=== PATIENT | female | born 1990 | race Caucasian/White ===

== ENCOUNTER 2019-12-24 11:26 | Emergency (ER) | payer OTHER, SELFPAY ==
[2019-12-24 11:35] VITALS: BP 149/94; PULSE 87; RESP 16; TEMP 37.3; O2SAT 100
--- NOTE | 2019-12-24 11:57 | ED.URI ---
HPI - URI/Sore Throat General Chief Complaint: Upper Respiratory Infection Stated Complaint: Sore Throat Source: patient Mode of arrival: ambulatory Limitations: no limitations History of Present Illness HPI Narrative: Patient is a 29-year-old female who presents complaining of sore throat and headache starting this a.m. Patient reports she was sent by her employer. Patient denies fever, cough, congestion or other symptoms at this time. She denies taking [id number] medications for symptom relief at this time. MD elicited complaint: sore throat Related Data Allergies Allergy/AdvReac Type Severity Reaction Status Date / Time amoxicillin Allergy Intermediate Hives Verified 12/24/19 11:43 Penicillins Allergy Intermediate Hives Verified 12/24/19 11:43 Review of Systems Review of Systems: Narrative: CONSTITUTIONAL: Denies fever, chills, or sweats. EYES: Denies visual changes, redness, or discharge. ENT: Denies rhinorrhea, congestion, or otalgia. Reports sore throat CARDIOVASCULAR: Denies chest pain, palpitations, or edema. RESPIRATORY: Denies cough or dyspnea. GASTROINTESTINAL: Denies abdominal pain, nausea, vomiting, or diarrhea. GENITOURINARY: Denies dysuria or hematuria. SKIN: Denies rash or itching. MUSCULOSKELETAL: Denies back pain, joint pain, or myalgia. NEUROLOGIC: Denies headache, numbness, dizziness, or weakness. PSYCHIATRIC: Denies anxiety or depression. PMFSH Past Medical History Medical History (Updated 12/24/19 @ 12:02 by RAGHAVENDRA White) Ovarian cyst Rheumatoid arthritis Ulcer Surgical History Surgical History (Updated 12/24/19 @ 12:00 by RAGHAVENDRA White) H/O: History of appendectomy Hx of tonsillectomy Family History Family History Other Diabetes mellitus Family history of malignant neoplasm of breast in first degree relative Social History Social History (Updated 12/24/19 @ 12:01 by RAGHAVENDRA White) Smoking status: Current every day smoker Tobacco type: e-cigarettes Alcohol intake: current Alcohol use details: Socially Substance use: never Living arrangements: with family Exam Narrative: Exam Narrative: GENERAL: Well-appearing, well-nourished, and in no acute distress. HEAD: Normocephalic, atraumatic. EYES: EOMI. No redness or drainage. Conjunctiva are normal. ENT: Mucous membranes pink and moist. Nares clear. No rhinorrhea. TMs normal bilaterally. Pharyngeal erythema and edema l. Uvula midline. NECK: AROM. Supple. No lymphadenopathy. CHEST: No respiratory distress. Clear to auscultation. HEART: Regular rate and rhythm. No murmur appreciated. Normal peripheral pulses. SKIN: Warm, dry, no rash. NEURO: No focal deficits. Alert and oriented x3. Gait steady. PSYCH: Normal affect. No signs of depression or anxiety. Course Vital Signs Vital signs: Vital Signs Temperature 37.3 C 12/24/19 11:35 Pulse Rate 87 12/24/19 11:35 Respiratory Rate 16 12/24/19 11:35 Blood Pressure 149/94 H 12/24/19 11:35 Pulse Oximetry 100 12/24/19 11:35 Temperature 37.3 C 12/24/19 11:35 Pulse Rate 87 12/24/19 11:35 Respiratory Rate 16 12/24/19 11:35 Blood Pressure 149/94 H 12/24/19 11:35 Pulse Oximetry 100 12/24/19 11:35 MDM - URI/Sore Throat MDM Narrative Medical decision making narrative: Patient's most likely diagnosis is pharyngitis. Rapid strep negative. Patient is stable for discharge to home with outpatient follow-up as needed. Differential Diagnosis Differential diagnosis: Likely upper respiratory infection, influenza and pharyngitis Medical Records Attestation: I reviewed the patient's medical records. Lab Data Labs: Strep Screen Presumptive Negative *(Reference Range: Negative)* Critical Care Time Critical Care Time Critical Care Time: No Discharge Plan Discharge Clinical Impression: Pharyngitis Guerrero
== END 2019-12-24 12:09 | disposition home or self-care (01) ==
PROVIDERS: Emergency Provider Nurse Practitioner; PCP Family Medicine Adolescent Medicine
DX: J02.9 Acute pharyngitis, unspecified (principal); F17.200 Nicotine dependence, unspecified, uncomplicated; M06.9 Rheumatoid arthritis, unspecified
CPT/HCPCS: 87081; 87880; 99213; G0463

== ENCOUNTER 2020-04-24 12:25 | Outpatient (CLI) | payer OTHER, SELFPAY ==
--- NOTE | ~2020-04-24 | XR_ITS ---
EXAMINATION: XR foot LT standing 2V INDICATION: Juvenile rheumatoid arthritis, seronegative TECHNIQUE: Two views of the left foot are obtained. COMPARISON: None available FINDINGS: There is no fracture, dislocation, or subluxation. 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 The fifth distal interphalangeal joint effusion. The soft tissues are un remarkable. No abnormal erosion or sclerosis is identified. IMPRESSION: 1. Unremarkable left foot radiographs. Reviewed, dictated and finalized at location A.
--- NOTE | ~2020-04-24 | XR_ITS ---
EXAMINATION: XR foot RT standing 2V INDICATION: Juvenile rheumatoid polyarthritis, seronegative TECHNIQUE: Two views of the right foot are obtained. COMPARISON: 03/17/2008 FINDINGS: There is no fracture, dislocation, or subluxation. 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 The joint spaces are otherwise normal. The soft tissues are unremarkable . No abnormal erosion or sclerosis is identified. IMPRESSION: 1. Unremarkable right foot radiographs. Reviewed, dictated and finalized at location A.
--- NOTE | ~2020-04-24 | XR_ITS ---
EXAMINATION: XR hip BI 2V w AP pelvis DATE: 04/24/2020 13:00 INDICATION: Juvenile rheumatoid polyarthritis, seronegative TECHNIQUE: AP view of the pelvis and two views of each hip were obtained. COMPARISON: None. FINDINGS: The bone alignment is normal. There is no fracture. The joint spaces are preserved. The sof t tissues are unremarkable. IMPRESSION: 1. Normal hip radiographs. Reviewed, dictated and finalized at location A. IMPRESSION: 1. Normal hip radiographs.
--- NOTE | ~2020-04-24 | XR_ITS ---
EXAMINATION: XR hand BI arthritis min 3V DATE: 04/24/2020 13:00 INDICATION: Bilateral hand pain, unspecified osteoarthritis, unspecified site TECHNIQUE: Posteroanterior, lateral, and oblique views of the left and of the right hands as well as a ballcatchers view of both hands were obtained. COMPARISON: None. FINDINGS: There is no fracture, dislocation, or subluxation. The bones, soft tissues, and joint space s are normal. No abnormal erosions or subluxations are identified. IMPRESSION: 1. Unremarkable hand radiographs. Reviewed, dictated and finalized at location A.
[2020-04-24 13:51] LABS: Hematocrit 40.2 % (37.0-47.0); Hemoglobin 13.4 g/dL (12.0-15.0); Mean Corpuscular HGB Conc 33.3 g/dl (32-36); Mean Corpuscular Hemoglobin 28.6 pg (26-34); Mean Corpuscular Volume 85.7 fl (80-100); Mean Platelet Volume 11.2 fl (7.4-10.4); Platelet Count Result 269 k/mm3 (150-375); Red Blood Count 4.69 M/mm3 (4.2-5.4); Red Cell Distribution Width 11.8 % (11.5-14.5); White Blood Count 11.7 K/mm3 (4.5-10.0)
[2020-04-24 13:52] LABS: Add Urine Microscopic? NO; Appearance Urine Clear (Clear); Bilirubin Urine Negative (Negative); Blood Urine Negative (Negative); Color Urine Straw (Yellow); Glucose Urine UA Negative (Negative); Ketones Urine Negative (Negative); Leukocyte Esterase Ur Negative LEU/UL (Negative); Nitrate Urine Negative (Negative); Protein Urine Negative (Negative); Specific Grav Ur 1.021 (1.001-1.035); Urobilinogen Urine Negative mg/dL (<2.0)
[2020-04-24 14:00] LABS: CRP 0.8 mg/dL (<1.0)
[2020-04-24 14:05] LABS: Complement C3 157 mg/dL (88-165); Rheumatoid Factor < 8.6 IU/ML (<12)
[2020-04-24 14:41] LABS: Erythrocyte Sedimentation Rate 19 mm/hr (0-20)
[2020-04-27 09:57] LABS: Chromatin Antibody <1.0
[2020-04-28 02:28] LABS: Anti Cardio Antibody IgM <12 MPL (<=12); Anti Cardiolipin Antibody IgA <11 APL (<=11); Anti Cardiolipin Antibody IgG <14 GPL (<=14)
[2020-04-28 14:18] LABS: Anti Cyclic Citrullinated Pept <16 Units (<20)
== END 2020-04-24 12:26 | disposition home or self-care (01) ==
PROVIDERS: PCP Family Medicine Adolescent Medicine; Visit Provider Internal Medicine
DX: M08.3 Juvenile rheumatoid polyarthritis (seronegative) (principal); M19.90 Unspecified osteoarthritis, unspecified site
CPT/HCPCS: 36415; 73130; 73521; 73620; 81003; 85027; 85652; 86140; 86147; 86160; 86200; 86235; 86430

== ENCOUNTER 2020-05-06 09:50 | Emergency (ER) | payer OTHER, SELFPAY ==
[2020-05-06 09:59] VITALS: BP 115/84; PULSE 85; RESP 16; TEMP 37.8; O2SAT 99
--- NOTE | 2020-05-06 10:06 | ED.ALLEREA ---
HPI - Allergic Reaction General Chief complaint: Allergic Reaction Stated complaint: Allergic reaction Time Seen by Provider: 05/06/20 10:06 Source: patient and RN notes reviewed Mode of arrival: ambulatory Limitations: no limitations History of Present Illness HPI narrative: This is a 29 years old female presents to the office for an evaluation of possible allergic reaction to new medication. She just started Hydroxychloroquine on 04/23 for newly dx Lupus. She noticed hives two days ago. Rash is every itchy. She calls her specialist whom told her to stop the medication and comes to [facility]. She took benadryl last night. Denies difficulty breathing, shortness of breath, swallowing, or feeling ill. Related Data Allergies Allergy/AdvReac Type Severity Reaction Status Date / Time amoxicillin Allergy Intermediate Hives Verified 04/23/20 13:04 Penicillins Allergy Intermediate Hives Verified 04/23/20 13:04 hydroxychloroquine Allergy Rash Verified 05/06/20 10:07 Review of Systems Review of Systems: Narrative: CONSTITUTIONAL: Denies fever or feeling ill ENT: Denies swollen tongue/lips CARDIOVASCULAR: Denies chest pain RESPIRATORY: Denies dyspnea GASTROINTESTINAL: Denies abdominal pain, nausea, vomiting SKIN: Reports hives MUSCULOSKELETAL: Denies acute joints pain NEUROLOGIC: Denies lightheaded All other systems reviewed are negative, except as documented in HPI. 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 There is no relevant family history pertinent to the presenting complaint. Exam Narrative: Exam Narrative: GENERAL: This is a well-nourished, well-developed patient, in no apparent distress. THROAT: Mucous membranes moist, posterior pharynx clear. NECK: Neck supple, non-tender without lymphadenopathy, masses or thyromegaly. CARDIOVASCULAR: Regular rate and rhythm without murmurs, gallops, or rubs. RESPIRATORY: Clear to auscultation. Breath sounds equal bilaterally. No wheezes, rales, or rhonchi. GASTROINTESTINAL: Abdomen soft, non-tender, nondistended. Bowel sounds are active. No hepato-splenomegaly, or palpable masses. No guarding. SKIN: reports generalize hives throughout torso, extremities except face NEURO: awake, alert, and oriented to person, place and time. There were no obvious focal neurologic abnormalities. Steady gait Reza Coma Scale Eye Opening: Spontaneous 4 [place] Coma Scale Motor: Obeys Commands 6 Reza Coma Scale Verbal: Oriented 5 Course Vital Signs Vital signs: Vital Signs Temperature 100.0 F H 05/06/20 09:59 Pulse Rate 85 05/06/20 09:59 Respiratory Rate 16 05/06/20 09:59 Blood Pressure 115/84 05/06/20 09:59 Pulse Oximetry 99 05/06/20 09:59 Temperature 100.0 F H 05/06/20 09:59 Pulse Rate 85 05/06/20 09:59 Respiratory Rate 16 05/06/20 09:59 Blood Pressure 115/84 05/06/20 09:59 Pulse Oximetry 99 05/06/20 09:59 MDM - Allergic Reaction MDM Narrative Medical decision making narrative: Discharge instructions reviewed with patient, as well as provided in writing per nursing staff. The instructions also include specific and strict
== END 2020-05-06 10:22 | disposition home or self-care (01) ==
PROVIDERS: Emergency Provider Nurse Practitioner; PCP Family Medicine Adolescent Medicine
DX: L50.9 Urticaria, unspecified (principal); F17.200 Nicotine dependence, unspecified, uncomplicated; M06.9 Rheumatoid arthritis, unspecified; M32.9 Systemic lupus erythematosus, unspecified
CPT/HCPCS: 99213; G0463

== ENCOUNTER 2020-06-06 08:11 | Emergency (ER) | payer OTHER, SELFPAY ==
[2020-06-06 08:23] VITALS: BP 129/86; PULSE 91; RESP 18; TEMP 37.2; O2SAT 100
--- NOTE | 2020-06-06 08:23 | ED.EAR ---
HPI - Ear Problem General Chief complaint: Ear Stated complaint: possible ear infection (left) Time Seen by Provider: 06/06/20 08:24 Source: patient and RN notes reviewed Mode of arrival: ambulatory Limitations: no limitations History of Present Illness HPI Narrative: This is a 30 years old female presented office for evaluation of left ear pain for 3-day. Associated with painful to touch and decreased hearing with ringing at times. She admits to swimming recently at her gym. She tried peroxide which make it worse. Denies associated symptoms such as fever, sore throat, cough, or any other symptoms. Related Data Allergies Allergy/AdvReac Type Severity Reaction Status Date / Time amoxicillin Allergy Intermediate Hives Verified 05/23/20 08:35 Penicillins Allergy Intermediate Hives Verified 05/23/20 08:35 hydroxychloroquine Allergy Rash Verified 05/23/20 08:35 Review of Systems Review of Systems: Narrative: CONSTITUTIONAL: Denies fever, chills ENT: Denies rhinorrhea, congestion, sore throat. reports left otalgia. CARDIOVASCULAR: Denies chest pain, palpitation RESPIRATORY: Denies dyspnea, wheezing, cough GASTROINTESTINAL: Denies abdominal pain, nausea, vomiting, diarrhea. SKIN: Denies rash MUSCULOSKELETAL: Denies acute back pain NEUROLOGIC: Denies lightheaded All other systems reviewed are negative, except as documented in HPI. 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 There is no relevant family history pertinent to the presenting complaint. Exam Narrative: Exam Narrative: GENERAL: This is a well-nourished, well-developed patient, in no apparent distress. EARS: External ears normal, right auditory canal clears and without drainage, left canal appears edematous with discharge noted; both TMs normal without perforation. Hearing grossly intact. NOSE: External nose normal with no obvious nasal discharge, nares without redness, no rhinorrhea. THROAT: Mucous membranes moist, posterior pharynx clear. NECK: Neck supple, non-tender without lymphadenopathy, masses or thyromegaly. CARDIOVASCULAR: Regular rate and rhythm without murmurs, gallops, or rubs. RESPIRATORY: Clear to auscultation. Breath sounds equal bilaterally. No wheezes, rales, or rhonchi. GASTROINTESTINAL: Abdomen soft, non-tender, nondistended. Bowel sounds are active. No guarding. SKIN: warm, intact with no suspicious lesions or rash, good texture and turgor. NEURO: awake, alert, and oriented to person, place and time. There were no obvious focal neurologic abnormalities. Steady gait [place] Coma Scale Eye Opening: Spontaneous 4 [place] Coma Scale Motor: Obeys Commands 6 Reza Coma Scale Verbal: Oriented 5 Course Vital Signs Vital signs: Vital Signs Temperature 99.0 F 06/06/20 08:23 Pulse Rate 91 06/06/20 08:23 Respiratory Rate 18 06/06/20 08:23 Blood Pressure 129/86 06/06/20 08:23 Pulse Oximetry 100 06/06/20 08:23 Temperature 99.0 F 06/06/20 08:23 Pulse Rate 91 06/06/20 08:23 Respiratory Rate 18 06/06/20 08:23 Blood Pressure 129/86 06/06/20 08:23 Pulse Oximetry 100 06/06/20 08:23 Medi
== END 2020-06-06 08:37 | disposition home or self-care (01) ==
PROVIDERS: Emergency Provider Nurse Practitioner; PCP Family Medicine Adolescent Medicine
DX: H60.332 Swimmer's ear, left ear (principal); F17.200 Nicotine dependence, unspecified, uncomplicated
CPT/HCPCS: 99213; G0463

== ENCOUNTER 2020-06-07 12:47 | Emergency (ER) | payer OTHER, SELFPAY ==
[2020-06-07 12:49] VITALS: BP 149/107; PULSE 112; RESP 16; TEMP 37.1; O2SAT 97
--- NOTE | 2020-06-07 13:05 | ED.GENADULT ---
HPI - General Adult General Chief complaint: Ear Stated complaint: L EAR PAIN CURRENT INFECTION Time Seen by Provider: 06/07/20 13:04 Source: patient Mode of arrival: ambulatory Limitations: no limitations History of Present Illness HPI narrative: 30-year-old woman here for further evaluation of previously diagnosed swimmer's ear . She was prescribed Ciprodex drops last used at 6 AM. She has significant pain and feels feverish. She is taken 200 mg of ibuprofen for the pain. Her pain started after swimming in the pool at her gym. Onset (ago): day(s) (2 day) Severity: severe Quality: burning Pain Consistency: constant Relieving factors: none Associated symptoms: fever/chills Treatments prior to arrival: other (previously prescribed ear drops) Related Data Allergies Allergy/AdvReac Type Severity Reaction Status Date / Time amoxicillin Allergy Intermediate Hives Verified 05/23/20 08:35 Penicillins Allergy Intermediate Hives Verified 05/23/20 08:35 hydroxychloroquine Allergy Rash Verified 05/23/20 08:35 Review of Systems Review of Systems: All systems reviewed & are unremarkable except as noted in HPI and below [facility] Past Medical History Medical History (Updated 06/07/20 @ 13:33 by Salud Oseguera PA-C) CHERYL (juvenile idiopathic arthritis), polyarthritis, 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) Ovarian cyst Rheumatoid arthritis Ulcer Surgical History Surgical History H/O: History of appendectomy Hx of tonsillectomy Family History Family History Other Diabetes mellitus Family history of malignant neoplasm of breast in first degree relative Social History Social History Smoking status: Current every day smoker Tobacco type: e-cigarettes/vaping Alcohol intake: current Substance use: never Exam Const: General: alert Orientation/consciousness: patient oriented x3 Other: tearful due to pain HENMT: Ears: external ear abnormal auricular tenderness, pain with movement of external ear and other (swelling and erythema) Face and sinus: normal facial exam Eyes: Pupils: Equal, round and reactive pupils present Neck: Neck: no lymphadenopathy Resp: Effort & Inspection: normal respiratory effort Skin: General skin exam: normal color Psych: Mental Status: mental status grossly normal Course Course Emergency Course: Earwick placed in the left ear, snug. Patient tells me that she left her eardrops in [facility], will re-prescribe eardrops and given her history of lupus and RA will prescribe a 7-day course of Cipro. Instructed to take 600 to 800 mg every 8 hours for the next 24 hours for pain and then as needed. Vital Signs Vital signs: Vital Signs Temperature 37.1 C 06/07/20 12:49 Pulse Rate 112 H 06/07/20 12:49 Respiratory Rate 16 06/07/20 12:49 Blood Pressure 149/107 H 06/07/20 12:49 Pulse Oximetry 97 06/07/20 12:49 Temperature 37.1 C 06/07/20 12:49 Pulse Rate 112 H 06/07/20 12:49 Respiratory Rate 16 06/07/20 12:49 Blood Pressure 149/107 H 06/07/20 12:49 Pulse Oximetry 97 06/07/20 12:49 Medical Decision Making Vital Signs Vital Signs: Vital Signs Temperature 37.1 C 06/07/20 12:49 Pulse Rate 112 H 06/07/20 12:49 Respiratory Rate 16 06/07/20 12:49 Blood Pressure 149/107 H 06/07/20 12:49 Pulse Oximetry 97 06/07/20 12:49 Temperature 37.1 C 06/07/20 12:49 Pulse Rate 112 H 06/07/20 12:49 Respiratory Rate 16 06/07/20 12:49 Blood Pressure 149/107 H 06/07/20 12:49 Pulse Oximetry 97 06/07/20 12:49 Discharge Plan Discharge Clinical Impression: External otitis of left ear Qualifiers: Otitis externa type: swimmer's ear Chronicity: acute Qualified Code(s): H60.332 - Swimmer's ear, left ear Patient Disposition: Home, Self-Care Condition: Sta
[2020-06-07] MEDS: IBUPROFEN 400 MG TABLET 800 MG PO (13:21)
[2020-06-07 13:55] VITALS: BP 131/84; PULSE 90; RESP 20; O2SAT 99
== END 2020-06-07 13:57 | disposition home or self-care (01) ==
PROVIDERS: Emergency Provider Emergency Medicine; PCP Family Medicine Adolescent Medicine
DX: H60.332 Swimmer's ear, left ear (principal); F17.290 Nicotine dependence, other tobacco product, uncomplicated; M08.3 Juvenile rheumatoid polyarthritis (seronegative)
CPT/HCPCS: 99283; A9270

== ENCOUNTER 2020-08-12 07:04 | Emergency (ER) | payer OTHER, SELFPAY ==
[2020-08-12] VITALS (20 sets, daily range): BP systolic 121–143; BP diastolic 67–91; PULSE 80–120; RESP 14–23; TEMP 36.7–37.2; O2SAT 96–100
--- NOTE | ~2020-08-12 | XR_ITS ---
EXAMINATION: XR chest 1V portable DATE: 08/12/2020 10:07 INDICATION: Chest pain with inspiration. TECHNIQUE: A single frontal view of the chest was obtained. COMPARISON: Chest 2 views 11/09/2015 FINDINGS: The chest demonstrates clear lungs without pneumonia, pleural effusion, or pneumothorax. Th e heart size is normal. IMPRESSION: 1. No acute cardiopulmonary disease. Reviewed, dictated and finalized at location A.
--- NOTE | ~2020-08-12 | CT_ITS ---
EXAMINATION: CTA chest PE protocol DATE: 08/12/2020 12:53 INDICATION: Chest pain. TECHNIQUE: Computed tomography angiography (CTA) of the chest was performed with 100 mL Omnipaque-350 intravenous contrast timed to evaluate the pulmonary arteries. Coronal maximum intensity projection 3D-reconstructions were created by the technologist. Automated exposure control and iterative reconst ruction technique were employed. The dose-length product was 437.46 mGy-cm. COMPARISON: Chest single view 08/12/2020, chest CT 04/28/2019 FINDINGS: There is minimal dependent atelectasis of the left. No pleural effusion. The heart size is normal. No pericardial effusion. There is no pulmonary embolus. There is dextrocurvature of thoracic spine. IMPRESSION: 1. No pulmonary embolus. Reviewed, dictated and finalized at location A. IMPRESSION: 1. No pulmonary embolus.
--- NOTE | 2020-08-12 10:06 | ED.GENADULT ---
HPI - General Adult General Chief complaint: Upper Respiratory Infection Stated complaint: WOKE UP SICK Time Seen by Provider: 08/12/20 07:38 Source: patient Mode of arrival: ambulatory Limitations: no limitations History of Present Illness HPI narrative: 30 years old white female woke up this morning with burning up, chills, body aches, dry cough and nausea. Patient patient denies any vomiting, diarrhea, constipation, abdominal pain, back pain, chest pain, sore throat, headache. History of systemic lupus, ran out of methotrexate 1 month ago scheduled to see a new book sewer October 2020. Patient also could not take hydrochloric cream because of allergy. Patient denies exposure to anybody with COVID-19. Patient does not have a thermometer at home to check her temperature. Her temperature was 37.2 on arrival to the emergency room Related Data Allergies Allergy/AdvReac Type Severity Reaction Status Date / Time amoxicillin Allergy Intermediate Hives Verified 08/12/20 07:35 Penicillins Allergy Intermediate Hives Verified 08/12/20 07:35 hydroxychloroquine Allergy Rash Verified 08/12/20 07:35 Review of Systems Review of Systems: Narrative: CONSTITUTIONAL: Denies fever, chills, or sweats. EYES: Denies visual changes, redness, or discharge. ENT: Denies rhinorrhea, congestion, sore throat, or otalgia. CARDIOVASCULAR: Denies chest pain, palpitations, or edema. RESPIRATORY: Denies cough or dyspnea. GASTROINTESTINAL: Denies abdominal pain, nausea, vomiting, or diarrhea. GENITOURINARY: Denies dysuria or hematuria. SKIN: Denies rash or itching. MUSCULOSKELETAL: Denies back pain, joint pain, or myalgia. NEUROLOGIC: Denies headache, numbness, or weakness. PSYCHIATRIC: Denies anxiety or depression. 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) Ovarian cyst Rheumatoid arthritis Ulcer Surgical History Surgical History H/O: History of appendectomy Hx of tonsillectomy Family History Family History Other Diabetes mellitus Family history of malignant neoplasm of breast in first degree relative Social History Social History Smoking status: Current every day smoker Tobacco type: e-cigarettes/vaping Alcohol intake: current Substance use: never Exam Narrative: Exam Narrative: General appearance: Well-developed, well-nourished Skin: Normal color Head: Normocephalic, nontraumatic Eyes: Clear conjunctiva ENT: Oropharynx normal, ears normal, nose normal Neck: Supple, nontender Chest and respiratory: Airway patent, no respiratory distress, no accessory muscle use Heart: Regular rate/rhythm Abdomen: Soft, nontender, no organomegaly, quiet bowel sounds Vascular: Normal peripheral pulses, normal capillary refill. Musculoskeletal: Normal range of motion, nontender back Neurologic: Alert and oriented ?3, EDUCATION RN is normal as tested, no gross motor deficit Course Course Emergency Course: Stable Vital Signs Vital signs: Vital Signs Temperature 37.2 C 08/12/20 07:27 Pulse Rate 120 H 08/12/20 07:27 Respiratory Rate 16 08/12/20 07:27 Blood Pressure 143/91 H 08/12/20 07:27 Pulse Oximetry 97 08/12/20 07:27 Temperature 37.2 C 08/12/20 07:27 Pulse Rate 112 H 08/12/20 10:30 Respiratory Rate 14 08/12/20 10:30 Blood Pressure 121/76 08/12/20 10:01 Pulse Oximetry 96 08/12/20 10:30 Medical Decision Making [facility]
[2020-08-12 10:12] LABS: Basophils Percent Auto 0.4 % (0.2-1.2); Eosinophils Percent Auto 0.1 % (0-4.4); Hematocrit 41.2 % (37.0-47.0); Hemoglobin 13.8 g/dL (12.0-15.0); Immature Granulocyte Absolute 0.03 K/mm3 (0.00-0.031); Immature Granulocyte Percent A 0.4 % (0-0.5); Lymphocytes Absolute Auto 0.38 K/mm3 (0.9-3.2); Lymphocytes Percent Auto 5.5 % (18.3-44.2); Mean Corpuscular HGB Conc 33.5 g/dl (32-36); Mean Corpuscular Hemoglobin 28.7 pg (26-34); Mean Corpuscular Volume 85.7 fl (80-100); Mean Platelet Volume 10.6 fl (7.4-10.4); Monocytes Absolute Auto 0.6 K/mm3 (0.1-0.6); Monocytes Percent Auto 8.2 % (2.6-8.5); Neutrophils Percent Auto 85.4 % (45.5-73.1); Nucleated Red Blood Cells Perc 0.4 % (0.0-0.2); Platelet Count Result 248 k/mm3 (150-375); Red Blood Count 4.81 M/mm3 (4.2-5.4); Red Cell Distribution Width 11.8 % (11.5-14.5)
[2020-08-12] MEDS: SODIUM CHLORIDE 0.9% IV 1,000 ML 999 ML IV CONT (10:14)
[2020-08-12] MEDS: KETOROLAC 30 MG/ML VIAL (*BKC) IV PUSH (10:15)
[2020-08-12 10:27] LABS: Alanine Aminotransferase 20 U/L (4-35); Albumin Level 4.8 g/dL (3.5-5.1); Alkaline Phosphatase 84 U/L (38-126); Anion Gap 10 mmol/L (8-16); Aspartate Amino Transferase 22 U/L (14-36); Bilirubin,Total 0.6 mg/dL (0.2-1.3); Blood Urea Nitrogen 10 mg/dL (7-17); Carbon Dioxide 27 mmol/L (22-30); Chloride 100 mmol/L (98-107); Estimated Glomerular Filt Rate > 60; Glucose 97 mg/dL (65-105); Sodium 137 mmol/L (137-145)
[2020-08-12] MEDS: ONDANSETRON INJ 4 MG/2 ML VIAL IV PUSH (10:29)
[2020-08-12 11:09] LABS: Add Urine Microscopic? YES; Appearance Urine Clear (Clear); Bacteria Urine Trace /hpf; Bilirubin Urine Negative (Negative); Blood Urine 3+ (Negative); Color Urine Straw (Yellow); Glucose Urine UA Negative (Negative); Ketones Urine Negative (Negative); Leukocyte Esterase Ur Negative LEU/UL (Negative); Mucus Urine Rare /lpf; Nitrate Urine Negative (Negative); Protein Urine Negative (Negative); Specific Grav Ur 1.013 (1.001-1.035); Squamous Epithelial Cell Urine Few /hpf (Few); Urobilinogen Urine Negative mg/dL (<2.0); WBC Urine 0-3 /hpf
[2020-08-12 19:01] LABS: SARS-CoV-2 RNA PCR Positive
== END 2020-08-12 13:37 | disposition home or self-care (01) ==
PROVIDERS: Emergency Provider Emergency Medicine; PCP Family Medicine Adolescent Medicine
DX: U07.1 COVID-19 (principal); M08.3 Juvenile rheumatoid polyarthritis (seronegative)
CPT/HCPCS: 36415; 71045; 71275; 80053; 81001; 81025; 85025; 87635; 96361; 96374; 96375; 99284; C9803; J1885; J2405; J7030; Q9967; U0003

== ENCOUNTER 2021-11-22 10:04 | Emergency (ER) | payer OTHER, SELFPAY ==
[2021-11-22 10:10] VITALS: BP 153/84; PULSE 90; RESP 17; TEMP 36.8; O2SAT 100
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
== END 2021-11-22 10:33 | disposition home or self-care (01) ==
PROVIDERS: Emergency Provider Nurse Practitioner; PCP Family Medicine Adolescent Medicine
DX: L03.114 Cellulitis of left upper limb (principal); T81.49XA Infection following a procedure, other surgical site, initial encounter; F17.200 Nicotine dependence, unspecified, uncomplicated
CPT/HCPCS: 99213; G0463

== ENCOUNTER 2022-07-07 13:53 | Outpatient (CLI) | payer OTHER, SELFPAY ==
--- NOTE | ~2022-07-07 | US_ITS ---
EXAMINATION: US pelvic complete w TV DATE: 07/07/2022 15:16 INDICATION: Pelvic pain. TECHNIQUE: Multiple transabdominal and transvaginal sonographic images of the pelvis were obtained. COMPARISON: None. FINDINGS: TRANSABDOMINAL ULTRASOUND: The uterus measures 8.7 x 4.0 x 5.6 cm. There is no free fluid in the pelvis. TRANSVAGINAL ULTRASOUND: The endometrial complex measures 4 mm in thickness. There is a 7 mm nabothian cyst in the cervix. The right ovary measures 3.7 x 2.3 x 2.1 cm. The left ovary measures 2.6 x 2.4 x 2.3 cm. There is normal vascular flow in the ovaries. IMPRESSION: 1. Normal pelvis. Reviewed, dictated and finalized at location [facility]. IMPRESSION: 1. Normal pelvis.
== END 2022-07-07 13:54 | disposition home or self-care (01) ==
LOC: ANHIMG 13:56
PROVIDERS: PCP Family Medicine Adolescent Medicine; Visit Provider Nurse Practitioner Obstetrics & Gynecology
DX: R10.2 Pelvic and perineal pain (principal)
CPT/HCPCS: 76830; 76856

== ENCOUNTER 2022-08-28 17:30 | Emergency (ER) | payer OTHER, SELFPAY ==
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
[2022-08-28 17:37] VITALS: BP 135/82; PULSE 100; RESP 16; TEMP 37.2; O2SAT 100
== END 2022-08-28 18:00 | disposition home or self-care (01) ==
PROVIDERS: Emergency Provider Nurse Practitioner Family; PCP Family Medicine Adolescent Medicine
DX: R10.9 Unspecified abdominal pain (principal); F17.290 Nicotine dependence, other tobacco product, uncomplicated; M06.9 Rheumatoid arthritis, unspecified
CPT/HCPCS: 81003; 87086; 99213; G0463

== ENCOUNTER 2022-09-23 21:48 | Emergency (ER) | payer OTHER, SELFPAY ==
--- NOTE | ~2022-09-23 | CT_ITS ---
EXAMINATION: CT abdomen pelvis w con DATE: 09/24/2022 00:12 INDICATION: Left-sided abdominal pain, radiating down left lower extremity TECHNIQUE: Computed tomography (CT) of the abdomen and pelvis was performed with 100 CC Omnipaque 350 intravenous contrast. Automated exposure control and iterative reconstruction technique were employe d. Exam dose: 440.74 mGy-cm total exam DLP. COMPARISON: 08/29/2018 CT abdomen pelvis 07/07/2022 pelvic ultrasound FINDINGS: The lung bases are clear. Normal heart size. No pericardial or pleural effusion. Very small sliding hiatal hernia. Chronic approximately 8 mm hypoattenuating lesion of the anterior aspect of the medial segment left h epatic lobe, present on 08/29/2018. No other hepatic space-occupying mass lesion is evident. The gall bladder is present. No bile duct or pancreatic duct dilatation. No pancreatic mass lesion or calcific ation. Normal splenic size. Normal morphology of the adrenal glands. Probable 4 mm right renal cyst. The kidneys are otherwise unremarkable. No urinary tract calculus or hydroureteronephrosis. Normal caliber of the abdominal aorta. No intraperitoneal or retroperitoneal or pelvic mass lesion or adenopathy or ascites is detected. The uterus, adnexal areas and urinary bladder are unremarkable. Probable appendectomy. Minimal colonic diverticulosis; no CT evidence of diverticulitis. No bowel obs truction, bowel wall thickening, pneumatosis or intraperitoneal free air is detected. Included skeletal structures are unremarkable. IMPRESSION: Minimal colonic diverticulosis; no CT evidence of diverticulitis Very small sliding hiatal hernia Probable chronic small hepatic cyst Reviewed, dictated and finalized at [facility]. Reviewed, dictated and finalized at location [facility]. K WETTER
[2022-09-23 22:22] VITALS: BP 140/83; PULSE 86; RESP 18; O2SAT 98
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
[2022-09-23] MEDS: KETOROLAC 30 MG/ML VIAL (*BKC) IV PUSH (22:38)
[2022-09-23] MEDS: SODIUM CHLORIDE 0.9% IV 1,000 ML 999 ML IV CONT (22:39)
[2022-09-23 22:48] LABS: Basophils Absolute Auto 0.1 K/mm3 (0.0-0.1); Basophils Percent Auto 0.6 % (0.2-1.2); Eosinophils Absolute Auto 0.4 K/mm3 (0-0.3); Eosinophils Percent Auto 4.3 % (0-4.4); Hematocrit 39.2 % (37.0-47.0); Hemoglobin 12.9 g/dL (12.0-15.0); Immature Granulocyte Absolute 0.04 K/mm3 (0.00-0.031); Immature Granulocyte Percent A 0.5 % (0-0.5); Lymphocytes Absolute Auto 2.71 K/mm3 (0.9-3.2); Lymphocytes Percent Auto 30.7 % (18.3-44.2); Mean Corpuscular HGB Conc 32.9 g/dl (32-36); Mean Corpuscular Hemoglobin 28.9 pg (26-34); Mean Corpuscular Volume 87.9 fl (80-100); Mean Platelet Volume 10.9 fl (7.4-10.4); Monocytes Absolute Auto 0.6 K/mm3 (0.1-0.6); Monocytes Percent Auto 6.6 % (2.6-8.5); Neutrophils Absolute Auto 5.1 K/mm3 (1.3-6.7); Neutrophils Percent Auto 57.3 % (45.5-73.1); Platelet Count Result 252 k/mm3 (150-375); Red Blood Count 4.46 M/mm3 (4.2-5.4); White Blood Count 8.8 K/mm3 (4.5-10.0)
[2022-09-23 22:57] LABS: Alanine Aminotransferase 19 U/L (6-35); Albumin Level 4.5 g/dL (3.5-5.1); Alkaline Phosphatase 72 U/L (38-126); Anion Gap 8 mmol/L (8-16); Aspartate Amino Transferase 20 U/L (14-36); Bilirubin,Total 0.4 mg/dL (0.2-1.3); Blood Urea Nitrogen 15 mg/dL (7-17); Carbon Dioxide 26 mmol/L (22-30); Chloride 105 mmol/L (98-107); Estimated CRCL calculation 91 ml/min; Estimated Glomerular Filt Rate > 60; Glucose 93 mg/dL (65-110); Lipase 71 U/L (23-300); Potassium 3.6 mmol/L (3.4-5.0); Sodium 139 mmol/L (137-145)
[2022-09-23 23:08] LABS: Appearance Urine Clear (Clear); Bilirubin Urine Negative (Negative); Blood Urine 1+ (Negative); Color Urine Yellow (Yellow); Glucose Urine UA Negative (Negative); Ketones Urine Trace mg/dL (Negative); Leukocyte Esterase Ur Negative LEU/UL (Negative); Nitrate Urine Negative (Negative); Protein Urine Negative (Negative); Specific Grav Ur 1.025 (1.001-1.035); Urobilinogen Urine 0.2 mg/dL (<2.0); pH Urine 6.5 (5.0-9.0)
[2022-09-23 23:20] LABS: Mucus Urine Rare /lpf; Squamous Epithelial Cell Urine Occasional /hpf (Few); WBC Urine 0-3 /hpf
[2022-09-23 23:25] LABS: Add Urine Microscopic? YES
[2022-09-24 02:06] VITALS: PULSE 64; RESP 18; O2SAT 99
== END 2022-09-24 02:03 | disposition home or self-care (01) ==
PROVIDERS: Emergency Provider Emergency Medicine; PCP Family Medicine Adolescent Medicine
DX: R10.32 Left lower quadrant pain (principal); M08.3 Juvenile rheumatoid polyarthritis (seronegative); F17.290 Nicotine dependence, other tobacco product, uncomplicated
CPT/HCPCS: 36415; 74177; 80053; 81001; 81025; 83690; 85025; 96361; 96374; 99284; J1885; J7030; Q9967

== ENCOUNTER 2022-10-12 09:46 | Outpatient (CLI) | payer OTHER, SELFPAY ==
--- NOTE | ~2022-10-12 | MMUS_ITS ---
EXAMINATION: MM diagnostic jennifer BI w pina, US breast BI complete HISTORY: Swollen left breast. TECHNIQUE: Additional 3-D tomosynthesis images of the breasts were performed and synthetic 2-D images were generated. CAD analysis was submitted and interpreted. High resolution bilateral complete breas t ultrasound was performed. COMPARISON: Ultrasound dated 04/10/2011 BREAST PARENCHYMAL COMPOSITION: The breasts are heterogeneously dense, which may obscure small masses FINDINGS: MAMMOGRAPHIC FINDINGS: There are no suspicious masses, calcifications or architectural distortion or cluster of calcificatio ns. There is a circumscribed radiolucent nodule in the upper outer quadrant of the right breast near the skin surface, likely benign. ULTRASOUND: Complete bilateral US of all 4 quadrants of the breasts and retroareolar region was reviewed. Right breast: At 9:00, 2 cm from the nipple is a complicated cyst with solid component internally. Th is measures 6 x 5 x 4 mm. No other masses are identified in the right breast. Left breast: Normal heterogeneous echotexture without focal solid or cystic mass. IMPRESSION: 1. Complex 6 mm partially cystic mass of the right breast at 9:00, 2 cm from the nipple. Biopsy recom mended. 2. Ultrasound-guided right breast biopsy recommended. BI-RADS category 4, suspicious findings. Reviewed, dictated and finalized at location [facility]. [employer] IMPRESSION: 1. Complex 6 mm partially cystic mass of the right breast at 9:00, 2 cm from th e nipple. Biopsy recommended. 2. Ultrasound-guided right breast biopsy recommended. BI-RADS category 4, suspicious findings.
== END 2022-10-12 09:47 | disposition home or self-care (01) ==
PROVIDERS: PCP Family Medicine Adolescent Medicine; Visit Provider Nurse Practitioner Obstetrics & Gynecology
DX: N64.4 Mastodynia (principal); R92.8 Other abnormal and inconclusive findings on diagnostic imaging of breast
CPT/HCPCS: 76641; 77062; 77066; G0279

== ENCOUNTER 2022-11-05 12:05 | Emergency (ER) | payer OTHER, SELFPAY ==
--- NOTE | 2022-11-05 12:34 | PC.NURSE ---
pt approached intake desk and states she is going to a different hospital. pt ambulated out of ED.
== END 2022-11-05 13:45 | disposition left against medical advice (07) ==
LOC: ANHED 13:19
PROVIDERS: PCP Family Medicine Adolescent Medicine
DX: Z53.21 Procedure and treatment not carried out due to patient leaving prior to being seen by health care provider (principal)
CPT/HCPCS: 99199

== ENCOUNTER 2023-04-07 11:49 | Emergency (ER) | payer OTHER, SELFPAY ==
--- NOTE | ~2023-04-07 | CT_ITS ---
EXAMINATION: CT abdomen pelvis w con DATE: 04/07/2023 12:56 INDICATION: Nausea, vomiting, diarrhea. Postoperative patient (tubal reversal, January 2023) TECHNIQUE: Computed tomography (CT) of the abdomen and pelvis was performed with 100 CC Omnipaque 350 intravenous contrast. Automated exposure control and iterative reconstruction technique were employe d. Exam dose: 536.45 mGy-cm total exam DLP. COMPARISON: 09/19/2022 CT abdomen pelvis FINDINGS: The lung bases are clear. Normal heart size. No pericardial or pleural effusion. Stable approximately 7 mm probable cyst, medial segment left hepatic lobe. No interval hepatic space- occupying mass lesion. The gallbladder is unremarkable. No bile duct dilatation. Normal splenic size. No pancreatic mass lesion, calcification or ductal dilatation. Normal morphology of the adrenal glands. Stable or diminished size of small right renal cyst since prior examination. No interval renal space- occupying mass lesion or urinary tract calculus or hydroureteronephrosis. The urinary bladder, uterus and adnexal areas are unremarkable. Normal caliber of the abdominal aorta. No intraperitoneal or retroperitoneal or pelvic mass lesion or adenopathy or ascites. Small fat-containing umbilical hernia. Included skeletal structures are unremarkable. IMPRESSION: Stable 7 mm hepatic cyst Small right renal cyst Reviewed, dictated and finalized at [facility]. . Reviewed, dictated and finalized at location L.
[2023-04-07 11:58] VITALS: BP 145/85; PULSE 84; RESP 16; TEMP 36.6; O2SAT 100
[2023-04-07 12:30] LABS: Basophils Absolute Auto 0.1 K/mm3 (0.0-0.1); Basophils Percent Auto 0.4 % (0.2-1.2); Eosinophils Percent Auto 0.2 % (0-4.4); Hematocrit 41.8 % (37.0-47.0); Hemoglobin 13.6 g/dL (12.0-15.0); Immature Granulocyte Absolute 0.06 K/mm3 (0.00-0.031); Immature Granulocyte Percent A 0.4 % (0-0.5); Lymphocytes Absolute Auto 1.91 K/mm3 (0.9-3.2); Lymphocytes Percent Auto 13.8 % (18.3-44.2); Mean Corpuscular HGB Conc 32.5 g/dl (32-36); Mean Corpuscular Hemoglobin 28.9 pg (26-34); Mean Corpuscular Volume 88.7 fl (80-100); Mean Platelet Volume 10.6 fl (7.4-10.4); Monocytes Absolute Auto 0.9 K/mm3 (0.1-0.6); Monocytes Percent Auto 6.2 % (2.6-8.5); Neutrophils Absolute Auto 10.9 K/mm3 (1.3-6.7); Platelet Count Result 280 k/mm3 (150-375); Red Blood Count 4.71 M/mm3 (4.2-5.4); Red Cell Distribution Width 11.8 % (11.5-14.5); White Blood Count 13.8 K/mm3 (4.5-10.0)
[2023-04-07 12:34] LABS: Alanine Aminotransferase 21 U/L (6-35); Albumin Level 4.9 g/dL (3.5-5.1); Alkaline Phosphatase 65 U/L (38-126); Anion Gap 6 mmol/L (8-16); Aspartate Amino Transferase 22 U/L (14-36); Bilirubin,Total 0.9 mg/dL (0.2-1.3); Blood Urea Nitrogen 18 mg/dL (7-17); Calcium 9.2 mg/dL (8.4-10.2); Carbon Dioxide 31 mmol/L (22-30); Chloride 100 mmol/L (98-107); Estimated CRCL calculation 104 ml/min; Estimated Glomerular Filt Rate > 60; Glucose 103 mg/dL (65-110); Lipase 64 U/L (23-300); Potassium 3.2 mmol/L (3.4-5.0); Sodium 137 mmol/L (137-145)
[2023-04-07 12:40] LABS: Appearance Urine Turbid (Clear); Bacteria Urine 2+ /hpf; Bilirubin Urine 1+ (Negative); Blood Urine 1+ (Negative); Color Urine Dark Yellow (Yellow); Glucose Urine UA Negative (Negative); Ketones Urine 1+ mg/dL (Negative); Leukocyte Esterase Ur Negative LEU/UL (Negative); Mucus Urine Present /lpf; Nitrate Urine Negative (Negative); Protein Urine 1+ mg/dL (Negative); Squamous Epithelial Cell Urine Many /hpf (Few); WBC Urine 0-5 /hpf; pH Urine 5.5 (5.0-9.0)
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
--- NOTE | 2023-04-07 12:46 | PC.NURSE ---
pt to ct at this time.
[2023-04-07 12:49] LABS: Add Urine Microscopic? YES
[2023-04-07] MEDS: SODIUM CHLORIDE 0.9% IV 1,000 ML 999 ML IV CONT (13:00)
[2023-04-07] MEDS: KETOROLAC 30 MG/ML VIAL (*BKC) IV PUSH (13:00)
[2023-04-07] MEDS: ONDANSETRON INJ 4 MG/2 ML VIAL IV PUSH (13:00)
[2023-04-07] MEDS: diphenhydrAMINE HCl INJ 50 MG/ML VIAL 25 MG IV PUSH (13:00)
[2023-04-07] MEDS: PROCHLORPERAZINE EDISYLATE 10 MG/2 ML VIAL IV PUSH (13:03)
--- NOTE | 2023-04-07 13:22 | ECG_ITS ---
Measurements Intervals [place] Rate: 65 P: -17 CT: 129 QRS: 55 QRSD: 102 T: 36 QT: 405 QTc: 423 Interpretive Statements SINUS RHYTHM WITH SINUS ARRHYTHMIA COMPARED TO ECG 04/27/2019 23:27:42 SINUS ARRHYTHMIA NOW PRESENT Electronically Signed On 04-07-2023 13:54:56 CDT by Xander Fritz M.D.
[2023-04-07] MEDS: POTASSIUM CHLORIDE 20 MEQ PACKET (FOR LIQUID) 40 MEQ PO (13:29)
[2023-04-07 15:22] VITALS: BP 113/66; PULSE 72; RESP 18; O2SAT 100
== END 2023-04-07 15:24 | disposition home or self-care (01) ==
PROVIDERS: Emergency Medicine; Emergency Provider Physician Assistant; PCP Family Medicine Adolescent Medicine
DX: K52.9 Noninfective gastroenteritis and colitis, unspecified (principal); M32.9 Systemic lupus erythematosus, unspecified; M08.3 Juvenile rheumatoid polyarthritis (seronegative); F17.290 Nicotine dependence, other tobacco product, uncomplicated; N28.1 Cyst of kidney, acquired
CPT/HCPCS: 36415; 74177; 80053; 81001; 81025; 83690; 85025; 93005; 96361; 96374; 96375; 99284; A9270; J0780; J1200; J1885; J2405; J7030; Q9967

== ENCOUNTER 2023-07-15 13:15 | Emergency (ER) | payer OTHER, SELFPAY ==
--- NOTE | ~2023-07-15 | CT_ITS ---
EXAMINATION: CT abdomen pelvis w con INDICATION: Abdominal pain TECHNIQUE: Computed tomographic images of the abdomen and pelvis were obtained after the administrati on of 100 cc of Omnipaque 350 intravenous contrast. The dose-length product (DLP) was 577.01 mGy-cm. Automated exposure control and iterative reconstruction technique were employed. COMPARISON: 04/07/2023 FINDINGS: The lung bases are clear. The heart size is normal. There is a 6 mm cyst of the left hepati c lobe. The spleen, pancreas, gallbladder, and adrenal glands are normal. Hypoattenuating lesions in the kidneys, measuring up to 5 mm on the right, are too small to characterize but likely represent cy sts. No pathologically enlarged abdominal or pelvic lymph nodes are identified. No free intraperitone al gas or evidence of bowel obstruction. There is mild lumbar spondylosis. IMPRESSION: 1. No CT correlate for the patient's symptoms. Reviewed, dictated and finalized at location F.
[2023-07-15 13:23] VITALS: BP 146/77; PULSE 95; RESP 16; TEMP 36.8; O2SAT 100
[2023-07-15 13:44] LABS: Basophils Percent Auto 0.4 % (0.2-1.2); Eosinophils Absolute Auto 0.1 K/mm3 (0-0.3); Eosinophils Percent Auto 0.7 % (0-4.4); Hematocrit 39.3 % (37.0-47.0); Hemoglobin 12.7 g/dL (12.0-15.0); Immature Granulocyte Absolute 0.04 K/mm3 (0.00-0.031); Immature Granulocyte Percent A 0.4 % (0-0.5); Lymphocytes Absolute Auto 1.88 K/mm3 (0.9-3.2); Mean Corpuscular HGB Conc 32.3 g/dl (32-36); Mean Corpuscular Hemoglobin 28.9 pg (26-34); Mean Corpuscular Volume 89.3 fl (80-100); Mean Platelet Volume 10.8 fl (7.4-10.4); Monocytes Absolute Auto 0.7 K/mm3 (0.1-0.6); Monocytes Percent Auto 7.1 % (2.6-8.5); Neutrophils Absolute Auto 6.7 K/mm3 (1.3-6.7); Neutrophils Percent Auto 71.4 % (45.5-73.1); Platelet Count Result 223 k/mm3 (150-375); Red Cell Distribution Width 11.9 % (11.5-14.5); White Blood Count 9.4 K/mm3 (4.5-10.0)
[2023-07-15 13:48] LABS: Appearance Urine Clear (Clear); Bacteria Urine None Seen /hpf; Bilirubin Urine Negative (Negative); Blood Urine 1+ (Negative); Color Urine Yellow (Yellow); Glucose Urine UA Negative (Negative); Ketones Urine Trace mg/dL (Negative); Leukocyte Esterase Ur Negative LEU/UL (Negative); Nitrate Urine Negative (Negative); Non Pathogenic Casts 0-2; Protein Urine Negative (Negative); Specific Grav Ur 1.028 (1.001-1.035); Squamous Epithelial Cell Urine Occasional /hpf (Few); Urobilinogen Urine 0.2 mg/dL (<2.0); WBC Urine 0-5 /hpf; pH Urine 5.5 (5.0-9.0)
[2023-07-15 13:56] LABS: Alanine Aminotransferase 25 U/L (6-35); Albumin Level 4.1 g/dL (3.5-5.1); Alkaline Phosphatase 64 U/L (38-126); Anion Gap 5 mmol/L (8-16); Aspartate Amino Transferase 21 U/L (14-36); Bilirubin,Total 0.4 mg/dL (0.2-1.3); Blood Urea Nitrogen 22 mg/dL (7-17); Calcium 8.8 mg/dL (8.4-10.2); Carbon Dioxide 28 mmol/L (22-30); Chloride 105 mmol/L (98-107); Estimated CRCL calculation 90 ml/min; Estimated Glomerular Filt Rate > 60; Glucose 85 mg/dL (65-110); Lipase 89 U/L (23-300); Potassium 3.7 mmol/L (3.4-5.0); Sodium 138 mmol/L (137-145)
[2023-07-15 14:01] LABS: Add Urine Microscopic? YES
[2023-07-15 15:31] VITALS: BP 120/76; PULSE 85; RESP 16; TEMP 36.4; O2SAT 100
[2023-07-15] MEDS: LACTATED RINGERS 1,000 ML 999 ML IV CONT (18:14)
[2023-07-15] MEDS: ACETAMINOPHEN 500 MG TABLET 1000 MG PO (18:17)
[2023-07-15] MEDS: IBUPROFEN 400 MG TABLET 800 MG PO (18:18)
--- NOTE | 2023-07-15 18:36 | ED.ABDPAIN ---
HPI - Abdominal Pain General Chief Complaint: Abdominal Pain Stated Complaint: back pain/abd pain/late period Time Seen by Provider: 07/15/23 17:12 Source: patient Mode of arrival: ambulatory Limitations: no limitations History of Present Illness HPI narrative: 33-year-old female presents to the emergency department today with complaints of low back pain, abdominal pain, late period. Patient has recently started a new job at a long term at [employer]. Job started approximately 1 to 2 weeks ago. Patient with complaints of abdominal pain for 2 weeks and low back pain for a 1 week. Low back pain at times can radiate down both legs. Patient denies any urinary incontinence, bowel incontinence, saddle paresthesia, leg weakness. Patient has not taken any medications for pain management at all or any topicals. Patient with complaints of lower abdominal pain x2 weeks. She does have a history of ovarian cysts but states this does not feel like that. Pain currently rated 3 out of a 10. Related Data Home Medications Medication Instructions Recorded Confirmed cholecalciferol (vitamin D3) 250 250 mcg PO WEEKLY 07/22/22 08/28/22 mcg (10,000 unit) capsule Allergies Allergy/AdvReac Type Severity Reaction Status Date / Time amoxicillin Allergy Intermediate Hives Verified 07/15/23 17:17 Penicillins Allergy Intermediate Hives Verified 07/15/23 17:17 hydroxychloroquine Allergy Rash Verified 07/15/23 17:17 Review of Systems Review of Systems: All systems reviewed & are unremarkable except as noted in HPI and below PMFSH Past Medical History Medical History History of placenta previa CHERYL (juvenile idiopathic arthritis), polyarthritis, 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) Ovarian cyst Rheumatoid arthritis Ulcer Surgical History Surgical History H/O skin graft September 2021 left hand H/O: History of appendectomy Hx of tonsillectomy Hx of tubal ligation Family History Family History Mother Diabetes mellitus Grandparent Acute myocardial infarction Sibling Diabetes mellitus Breast cancer Father Heart disease Other Family history of malignant neoplasm of breast in first degree relative Social History Social History Smoking status: Current every day smoker Tobacco type: e-cigarettes/vaping Alcohol intake: current Alcohol use details: Socially Substance use: never Living arrangements: with family Exam Const: General: cooperative, healthy appearing, comfortable, no acute distress and well developed Orientation/consciousness: patient oriented x3 HENMT: Head: normal to inspection Eyes: General: appearance normal, both eyes and all related structures Resp: Effort & Inspection: normal respiratory effort and able to speak in complete sentences Auscultation: clear to auscultation bilaterally Cardio: Rate: regular rate Rhythm: regular rhythm Heart sounds: S1 normal heart sound present and S2 normal heart sound present GI: Inspection: normal to inspection GI Palp: Yes abdominal tenderness (rlq), Yes Soft to palpation and No Guarding due to palpation present (GI) Back/Spine/Pelvis: Thoracic/Lumbar Spine: paraspinal muscle tenderness bilaterally in the lower lumbar, No thoraco-lumbar spasm and lumbar spinal tenderness at L4 and at L5 Neuro: General: patient oriented x3 Motor exam (neuro): 5/5 motor strength present throughout Course Vital Signs Vital signs: Vital Signs Temperature 98.3 F 07/15/23 13:23 Pulse Rate 95 07/15/23 13:23 Respiratory Rate 16 07/15/23 13:23 Blood Pressure 146/77 H 07/15/23 13:23 Pulse Oximetry 100 07/15/23 13:23 Oxygen Delivery Room Air 07/15/23 13:23 Temperature 97.5 F L 07/15/23 15:31 Pulse Rate 85 09
[2023-07-15] MEDS: LIDOCAINE 5% PATCH 2 PATCH (18:38)
[2023-07-15 18:40] VITALS: BP 125/74; PULSE 76; RESP 20; O2SAT 100
== END 2023-07-15 18:41 | disposition home or self-care (01) ==
PROVIDERS: General Practice; Emergency Provider Nurse Practitioner Family; PCP Family Medicine Adolescent Medicine
DX: M54.50 Low back pain, unspecified (principal); R10.9 Unspecified abdominal pain; F17.290 Nicotine dependence, other tobacco product, uncomplicated
CPT/HCPCS: 36415; 74177; 80053; 81001; 81025; 83690; 85025; 99284; A9270; J7120; Q9967

== ENCOUNTER 2023-10-28 02:02 | Emergency (ER) | payer OTHER, SELFPAY ==
[2023-10-28 02:03] VITALS: BP 131/84; PULSE 84; RESP 18; TEMP 36.4; O2SAT 100
--- NOTE | 2023-10-28 03:12 | ED.GENADULT ---
HPI - General Adult General Chief complaint: Ear Stated complaint: right ear infection Time Seen by Provider: 10/28/23 02:44 History of Present Illness HPI narrative: His 33-year-old female who presents to emergency department chief complaint of right ear pain. Patient reports that she has had pain in her right ear for the last several days and reports that she had been diagnosed with an ear infection by her OBGYN patient was started on Zithromax and has completed 4 of 5 days of the Zithromax and now has swelling in the external auditory canal in purulence drainage out of the canal. The patient reports she is allergic to penicillin Related Data Home Medications Medication Instructions Recorded Confirmed azithromycin 250 mg tablet 250 mg PO DAILY 10/27/23 10/27/23 boygkhuveuqj-ijihttgf-lwlt 1 tablet PO DAILY 10/27/23 10/27/23 fumarate 18 mg-folic acid 400 mcg tablet (One-A-Day Women's Complete) Allergies Allergy/AdvReac Type Severity Reaction Status Date / Time amoxicillin Allergy Intermediate Hives Verified 10/27/23 15:19 Penicillins Allergy Intermediate Hives Verified 10/27/23 15:19 hydroxychloroquine Allergy Mild Rash Verified 10/27/23 15:19 Review of Systems Review of Systems: A 10 system review of systems was completed on the patient and is negative except for what is stated in the HPI. Nursing and ancillary documentation was reviewed. [facility] Past Medical History Medical History History of placenta previa CHERYL (juvenile idiopathic arthritis), polyarthritis, 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) Ovarian cyst Rheumatoid arthritis Ulcer Surgical History Surgical History H/O skin graft September 2021 left hand H/O: History of appendectomy Hx of tonsillectomy Hx of tubal ligation Family History Family History Mother Diabetes mellitus Grandparent Acute myocardial infarction Sibling Diabetes mellitus Breast cancer Father Heart disease Other Family history of malignant neoplasm of breast in first degree relative Social History Social History Smoking status: Never smoker Tobacco type: e-cigarettes/vaping Second hand tobacco smoke exposure: No Alcohol intake: current Alcohol use details: Socially Substance use: never Substance use type: does not use Living arrangements: with family Spiritual care concerns: No Exam Narrative: GENERAL: Well-appearing, well-nourished, and in no acute distress. HEAD: Normocephalic, atraumatic. EYES: PERRLA and EOMI. ENT: Nares clear, no rhinorrhea or epistaxis. Mucous membranes moist. Left tympanic membrane within normal limits. Right external auditory canal is swollen there is purulent material in the canal. NECK: Supple. CHEST: Clear to auscultation. No respiratory distress. HEART: Regular rate and rhythm. No murmur heard. Normal peripheral pulses. ABDOMEN: Soft, nontender, nondistended, normal active bowel sounds. EXTREMITIES: Normal range of motion. No edema. SKIN: Warm, dry, no rash. NEURO: No focal deficits. Alert and oriented x3. PSYCH: Normal mood and affect. Course Vital Signs Vital signs: Vital Signs Temperature 36.4 C L 10/28/23 02:03 Pulse Rate 84 10/28/23 02:03 Respiratory Rate 18 10/28/23 02:03 Blood Pressure 131/84 10/28/23 02:03 Pulse Oximetry 100 10/28/23 02:03 Oxygen Delivery Room Air 10/28/23 02:03 Temperature 36.4 C L 10/28/23 02:03 Pulse Rate 84 10/28/23 02:03 Respiratory Rate 18 10/28/23 02:03 Blood Pressure 131/84 10/28/23 02:03 Pulse Oximetry 100 10/28/23 02:03 Oxygen Delivery Room Air 10/28/23 02:03 Medical Decision Making MDM Narrative Medical decision making narrative: Differential diag
[2023-10-28] MEDS: CEFDINIR 300 MG CAPSULE PO (03:20)
== END 2023-10-28 03:22 | disposition home or self-care (01) ==
PROVIDERS: Emergency Provider Emergency Medicine; PCP Family Medicine Adolescent Medicine
DX: H66.91 Otitis media, unspecified, right ear (principal); H60.91 Unspecified otitis externa, right ear; M08.3 Juvenile rheumatoid polyarthritis (seronegative); F17.290 Nicotine dependence, other tobacco product, uncomplicated
CPT/HCPCS: 99283; A9270

== ENCOUNTER 2023-11-03 07:54 | Outpatient (CLI) | payer OTHER, SELFPAY | END 2023-11-03 07:55 | disposition home or self-care (01) | LOC: ANHSURGERY 07:59 | PROVIDERS: PCP Family Medicine Adolescent Medicine; Visit Provider Obstetrics & Gynecology | DX: R10.2 Pelvic and perineal pain (principal); Z01.818 Encounter for other preprocedural examination | CPT/HCPCS: 36415; 86850; 86900; 86901 ==

== ENCOUNTER 2023-11-11 03:36 | Day surgery (SDC) | payer OTHER, SELFPAY ==
[2023-10-27 15:23] VITALS: BMI 34.9
--- NOTE | 2023-10-27 15:46 | PC.NURSE ---
Report to the Outpatient Waiting Room, entrance under the green pavilion located off [facility], at 0900 on 11-11-23. Planned Procedure Time: 1100. Time changes happen often and if your time is changed the preop area will call you the afternoon before. - You and your visitor will be asked to self-screen and do not enter if you have any COVID symptoms. - A mask is optional within the hospital at this time. Patients may have clear liquids (water, carbonated beverages, clear teas, apple juice) until 3 hours prior to surgery with a maximum of 20 ounces. 0800 - No food from midnight until time of surgery - Infants may have breast milk until 4 hours before surgery, formula 6 hours prior to surgery. - Children will be allowed to drink immediately following surgery. If applicable, please bring a bottle or sippy cup to assist with drinking. Juice, water, soda, and popsicles are readily available. For infants on formula, please bring formula the day of surgery. Pacifiers are allowed. Take the following medications with a SIP of water the morning of surgery: None DO NOT STOP ANY OF YOUR OTHER PRESCRIPTION MEDICATIONS PRIOR TO SURGERY ?EXCEPT THE FOLLOWING Medications to discontinue per physician: vitamins and supplements; ibuprofen Date to take last dose: 11-08-23; per Dr. Clarisa Lira Please no make-up, nail italian, hairspray, perfume, deodorant, or body powder the day of surgery. No jewelry (including any body piercings) or valuables the day of surgery, leave them at home. Please take a shower or bath the night before, or the morning of, surgery with an antibacterial soap. Wear comfortable, loose fitting clothing. Children are encouraged to wear pajamas. - Jewelry must be removed prior to entering the operating room. Rings and piercings that are not removed may be cut off. - The hospital will not accept responsibility for valuables. - Please leave all valuables, including medications, at home the day of surgery. If you are going home after surgery, a licensed bulk driver must drive you home. - NO public transportation without another adult if you receive anesthesia. - We recommend that an adult stay with you for 24 hours following discharge. - We also recommend that you do not drive, make important decision, drink alcoholic beverages, or take any drugs that were not prescribed by your health care provider for at least 24 hours after your discharge time. For Pediatric surgeries, we recommend two adults accompany the child home. Follow any additional instructions given to you from your surgeon. If you or anyone in your household have experienced Covid symptoms in the past week, please notify your surgeon or the nurse liaison at the phone number below for possible testing. Telephone instructions given to Judy Bradford and asked if any additional questions and then verbalized understanding. Patient advised to call surgeon office or pre surgery nurse liaison [phone] if any additional questions.
--- NOTE | 2023-11-09 10:19 | PM.IMHP ---
H&P: HPI History of Present Illness Date/Time: 11/09/23 10:19 Chief Complaint: Pelvic pain Narrative: This is a 33-year-old 2 para 2 admitted for diagnostic laparoscopy secondary to pelvic pain. She had a tubal ligation followed by a reversal. She has had pain since that time. She will undergo laparoscopy. Risks and benefits reviewed including not exclusive of , aspiration pneumonia, bleeding, transfusion, perforation injury to bowel, bladder, ureters, or other internal organs with the need for open laparotomy. She will also quick chromopertubation she is in there. She had all questions answered and asked to proceed PMF Past Medical History Medical History History of placenta previa CHERYL (juvenile idiopathic arthritis), polyarthritis, 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) Ovarian cyst Rheumatoid arthritis Ulcer Surgical History Surgical History H/O skin graft September 2021 left hand H/O: History of appendectomy Hx of tonsillectomy Hx of tubal ligation Family History Family History Mother Diabetes mellitus Grandparent Acute myocardial infarction Sibling Diabetes mellitus Breast cancer Father Heart disease Other Family history of malignant neoplasm of breast in first degree relative Social History Social History Smoking status: Never smoker Tobacco type: e-cigarettes/vaping Second hand tobacco smoke exposure: No Alcohol intake: current Alcohol use details: Socially Substance use: never Substance use type: does not use Living arrangements: with family Spiritual care concerns: No Meds Home Medications and Allergies Home Medications Medication Instructions Recorded Confirmed Type ibuprofen 600 mg tablet 600 mg PO TID PRN pain #14 tabs 09/24/22 10/27/23 Rx azithromycin 250 mg tablet 250 mg PO DAILY 10/27/23 10/27/23 History kszqmsvsbmly-vokkigll-beps 1 tablet PO DAILY 10/27/23 10/27/23 History fumarate 18 mg-folic acid 400 mcg tablet (One-A-Day Women's Complete) cefdinir 300 mg capsule 300 mg PO Q12H 10 days #20 caps 10/28/23 Rx ofloxacin 0.3 % ear drops 10 drp RIGHT EAR Q24H 7 days #5 mL 10/28/23 Rx Allergies Allergy/AdvReac Type Severity Reaction Status Date / Time amoxicillin Allergy Intermediate Hives Verified 10/27/23 15:19 Penicillins Allergy Intermediate Hives Verified 10/27/23 15:19 hydroxychloroquine Allergy Mild Rash Verified 10/27/23 15:19 Exam Const: General: cooperative, healthy appearing and comfortable Nutritional Appearance: average body habitus Orientation/consciousness: oriented to person, oriented to place and oriented to time Resp: Effort & Inspection: normal respiratory effort Cardio: Rate: regular rate Rhythm: regular rhythm Heart sounds: S1 normal heart sound present and S2 normal heart sound present GI: Inspection: normal to inspection : Speculum Exam - Vagina: normal appearance of the vagina Speculum Exam - Cervix: normal appearance of the cervix Bimanual exam- vagina & uterus: enlarged Bimanual Exam- Adnexa, other: tender bilaterally Assessment and Plan Assessment and plan (1) Pelvic pain: Code(s): R10.2 - Pelvic and perineal pain Status: Acute Plan Diagnostic laparoscopy
[2023-11-11] VITALS (8 sets, daily range): BP systolic 109–129; BP diastolic 62–78; PULSE 70–103; RESP 15–18; TEMP 36.6–36.7; O2SAT 100
--- NOTE | 2023-11-11 06:33 | WPDHPUPDATE1 ---
History and Physical Update Update Date/Time: 11/11/23 06:33 History and Physical has been reviewed, including an updated exam of the patient. There are NO changes in the patient's condition. Risks, benefits, and alternatives have been discussed and questions answered. Patient agrees to proceed with procedure.
[2023-11-11] MEDS: ACETAMINOPHEN 500 MG TABLET 1000 MG PO (09:11)
[2023-11-11] MEDS: KETOROLAC 15 MG/ML VIAL (*BKC) IV PUSH (09:29)
--- NOTE | 2023-11-11 09:36 | WPDANESEPPF ---
Anes - Initial Pre Proc Eval Procedure: Operation Date: 11/11/23 11:00 Proposed Procedures p Diagnostic Laparoscopy - Conor Lira MD Date/Time: 11/11/23 09:36 Surgeon: Conor Lira MD Pre Op Diagnosis: Pelvic Pain, Endometriosis, Adhesions Patient Data Age: 33 Gender: F Height: 1.55 m Weight: 86 kg Last Vital Signs Temp 36.6 C 11/11/23 09:31 Pulse 76 11/11/23 09:31 Resp 16 11/11/23 09:31 BP 129/75 11/11/23 09:31 Pulse Ox 100 11/11/23 09:31 O2 Del Method Room Air 11/11/23 09:31 Allergies Allergy/AdvReac Type Severity Reaction Status Date / Time amoxicillin Allergy Intermediate Hives Verified 11/11/23 09:08 Penicillins Allergy Intermediate Hives Verified 11/11/23 09:08 hydroxychloroquine Allergy Mild Rash Verified 11/11/23 09:08 Home Medications Medication Instructions Recorded Confirmed Type ibuprofen 600 mg tablet 600 mg PO TID PRN pain #14 tabs 09/24/22 10/27/23 Rx azithromycin 250 mg tablet 250 mg PO DAILY 10/27/23 10/27/23 History ccznrndmmysm-sskhtjea-yfwj 1 tablet PO DAILY 10/27/23 10/27/23 History fumarate 18 mg-folic acid 400 mcg tablet (One-A-Day Women's Complete) cefdinir 300 mg capsule 300 mg PO Q12H 10 days #20 caps 10/28/23 Rx ofloxacin 0.3 % ear drops 10 drp RIGHT EAR Q24H 7 days #5 mL 10/28/23 Rx hydrocodone 5 mg-acetaminophen 325 1 tablet PO Q4H PRN pain #30 tabs 11/11/23 Rx mg tablet Patient hx anesthesia problems: none Family hx anesthesia problems: none Results Review: All pre-operative results and documents have been reviewed as part of the pre-operative evaluation. [facility] Past Medical History Medical History History of placenta previa CHERYL (juvenile idiopathic arthritis), polyarthritis, 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) Ovarian cyst Rheumatoid arthritis Ulcer Surgical History Surgical History H/O skin graft September 2021 left hand H/O: History of appendectomy Hx of tonsillectomy Hx of tubal ligation Family History Family History Mother Diabetes mellitus Grandparent Acute myocardial infarction Sibling Diabetes mellitus Breast cancer Father Heart disease Other Family history of malignant neoplasm of breast in first degree relative Social History Social History Smoking status: Never smoker Tobacco type: e-cigarettes/vaping Second hand tobacco smoke exposure: No Alcohol intake: current Alcohol use details: Socially Substance use: never Substance use type: does not use Living arrangements: with family Spiritual care concerns: No Anes - Eval Final PreProcedure Day of Procedure 11/11/23 09:36 Patient weight: obese Heart: regular rate and rhythm Lungs: clear to auscultation Airway: Mallampati scale class II Neurological: alert and oriented Last oral intake: >/= 8 hours ASA classification: III Emergent: no Anesthetic plan: proceed Anesthesia type and monitoring: general ETT and standard monitoring Results Review: All pre-operative results and documents have been reviewed as part of the pre-operative evaluation. Informed Consent: The patient's anesthetic plan and its attendant risks and benefits were discussed with the patient/family/POA. Questions were solicited and answers provided to the satisfaction of the patient/family/POA.
[2023-11-11] MEDS: LACTATED RINGERS 1,000 ML 30 ML IV CONT (09:40)
[2023-11-11] MEDS: METHYLENE BLUE 0.5% INJ 10 ML AMPULE 20 ML IRRIGATION (10:06)
--- NOTE | 2023-11-11 10:19 | W.PM.PROC2 ---
Procedure Note - Detailed Date of Procedure 11/11/23 Pre-op Diagnosis Pelvic Pain, Endometriosis, Adhesions Post-op Diagnosis Other (Pelvic pain and pelvic adhesions) Procedure Performed laparoscopy with lysis of adhesions Surgeon Conor Lira MD Anesthesia General Indications this is a 33-year-old female with pelvic pain she had previous surgery under tubes scar tissue was expected. Findings Patient was prepped draped in the normal sterile fashion placed in the dorsal lithotomy position. Under excellent general trach anesthesia weighted speculum placed in posterior fornix vagina. Anterior lip of the cervix grasped with a single-tooth tenaculum. The Orantes's cannula was inserted the cervix attached to the single-tooth. This was used later for uterine manipulation. Bladder was then emptied of clear urine. The weighted speculum was removed and the gloves were changed. An infraumbilical incision made the Veress needle passed in. Abdomen filled with CO2 gas [id number]. The 5mm trocar advanced in the abdomen. DownsideVisualized no injury seen. Patient placed in Trendelenburg and a suprapubic incision. The 5mm trocar advanced under direct visualization assuring injury. The above findings were seen. Multiple adhesions were seen especially on the left these were sharply dissected. No evidence of endometriosis or other abnormality was seen. The cervix was manipulated methylene blue was pushed through the cervix and both tubes appeared open. The of left side appeared somewhat clogged but opened with pressure. Irrigation was undertaken until clear. The lower site removed. The gas removed from the abdomen. The upper site removed. The incisions closed with 4 Monocryl glue. Patient went to recovery in satisfactory condition. All sponge, needle, instrument counts were correct. There were no immediate complications Description of Procedure see above Estimated Blood Loss 5 Drains No Packing No Pathology None sent Complications No immediate complications Condition Stable Disposition PACU
== END 2023-11-11 12:05 | disposition home or self-care (01) ==
PROVIDERS: PCP Family Medicine Adolescent Medicine; Visit Provider Obstetrics & Gynecology
PROC: (CPT 49320; principal; 2023-11-11 11:00)
DX: N73.6 Female pelvic peritoneal adhesions (postinfective) (principal); R10.2 Pelvic and perineal pain
CPT/HCPCS: 58660; A9270; J1100; J1596; J1885; J2250; J2405; J2704; J2710; J3010; J7120; Q9968

== ENCOUNTER 2024-03-11 12:05 | Emergency (ER) | payer OTHER, SELFPAY ==
[2024-03-11] VITALS (27 sets, daily range): BP systolic 105–140; BP diastolic 58–86; PULSE 73–87; RESP 13–26; TEMP 36.6; O2SAT 96–100
--- NOTE | ~2024-03-11 | XR_ITS ---
XR chest 2V DATE: 03/11/2024 12:33 INDICATION: Left chest pain today. 21 weeks gravid patient. TECHNIQUE: PA and lateral views with abdominal and pelvic shielding COMPARISON: None FINDINGS: Normal heart size. No hilar or mediastinal enlargement. No pulmonary infiltrate or consolid ation, pleural effusion or pulmonary vascular congestion or pneumothorax. Mild thoracolumbar dextroscoliosis. IMPRESSION: No active cardiopulmonary disease Reviewed, dictated and finalized at location A.
--- NOTE | 2024-03-11 12:08 | ECG_ITS ---
SEE SCANNED COPY FOR CONFIRMED REPORT MTDD
--- NOTE | 2024-03-11 12:24 | ED.GENADULT ---
HPI - General Adult General Chief complaint: Chest Pain Stated complaint: Chest pain Time Seen by Provider: 03/11/24 12:11 History of Present Illness HPI narrative: Patient is a 33-year-old female who presents ER with lightheadedness. She was at [employer] when she began to feel hot and flushed. She then developed some chest tightness to her left upper chest and then also beneath the breast and left side. Lasts about 5 minutes. No LOC. Reports her heart rate was between 90 and 100 beats per minute. She called her OBs office who said she can go home and rest her come here for further evaluation. No abdominal cramping or pain. She reports normal diet today. 21 weeks in gestation. No leg swelling or calf cramping. No hemoptysis. No pain with deep breath. Related Data Home Medications Medication Instructions Recorded Confirmed azithromycin 250 mg tablet 250 mg PO DAILY 10/27/23 10/27/23 ejqssxoheidl-cfxnigpw-xufm 1 tablet PO DAILY 10/27/23 10/27/23 fumarate 18 mg-folic acid 400 mcg tablet (One-A-Day Women's Complete) Allergies Allergy/AdvReac Type Severity Reaction Status Date / Time amoxicillin Allergy Intermediate Hives Verified 03/11/24 12:20 Penicillins Allergy Intermediate Hives Verified 03/11/24 12:20 hydroxychloroquine Allergy Mild Rash Verified 03/11/24 12:20 Review of Systems Review of Systems: All systems reviewed & are unremarkable except as noted in HPI and below Constitutional: Constitutional: Reports no additional constitutional complaints ENT: Reports dizziness, Denies nasal congestion and Denies sore throat Cardiovascular: Cardiovascular: Reports no additional cardiovascular complaints Respiratory: Respiratory: Reports no additional respiratory complaints Gastrointestinal: Gastrointestinal: Reports no additional gastrointestinal complaints Genitourinary: Genitourinary: Reports no additional female genitourinary complaints PMFSH Past Medical History Medical History History of placenta previa CHERYL (juvenile idiopathic arthritis), polyarthritis, 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) Ovarian cyst Rheumatoid arthritis Ulcer Surgical History Surgical History H/O skin graft September 2021 left hand H/O: History of appendectomy Hx of tonsillectomy Hx of tubal ligation Family History Family History Mother Diabetes mellitus Grandparent Acute myocardial infarction Sibling Diabetes mellitus Breast cancer Father Heart disease Other Family history of malignant neoplasm of breast in first degree relative Social History Social History Smoking status: Never smoker Tobacco type: e-cigarettes/vaping Second hand tobacco smoke exposure: No Alcohol intake: current Alcohol use details: Socially Substance use: never Substance use type: does not use Living arrangements: with family Spiritual care concerns: No Exam Narrative: GENERAL: Well-appearing, well-nourished, and in no acute distress. HEAD: Normocephalic, atraumatic. ENT: Mucous membranes moist. CHEST: Clear to auscultation. No respiratory distress. HEART: Regular rate and rhythm. Normal peripheral pulses. ABDOMEN: Soft, nontender, nondistended. EXTREMITIES: Normal range of motion. No edema. SKIN: Warm, dry, no rash. NEURO: Alert and oriented x3. PSYCH: Normal mood and affect. Course Course Emergency Course: Does not wish to have 2nd troponin performed and would like to go home to kids. Labs initially normal. First Troponin negative. Vital Signs Vital signs: Vital Signs Temperature 97.9 F 03/11/24 12:14 Pulse Rate 84 03/11/24 12:14 Respiratory Rate 22 H 03/11/24 12:14 Blood Pressure 140/86 03/11/24 12:14 Pulse Oximetry 99 03/11/24 1
[2024-03-11 12:27] LABS: Basophils Percent Auto 0.2 % (0.2-1.2); Eosinophils Absolute Auto 0.1 K/mm3 (0-0.3); Eosinophils Percent Auto 0.4 % (0-4.4); Hematocrit 36.7 % (37.0-47.0); Hemoglobin 12.4 g/dL (12.0-15.0); Immature Granulocyte Absolute 0.09 K/mm3 (0.00-0.031); Immature Granulocyte Percent A 0.8 % (0-0.5); Lymphocytes Absolute Auto 2.17 K/mm3 (0.9-3.2); Lymphocytes Percent Auto 18.5 % (18.3-44.2); Mean Corpuscular HGB Conc 33.8 g/dl (32-36); Mean Corpuscular Hemoglobin 28.9 pg (26-34); Mean Corpuscular Volume 85.5 fl (80-100); Mean Platelet Volume 10.2 fl (7.4-10.4); Monocytes Absolute Auto 0.6 K/mm3 (0.1-0.6); Monocytes Percent Auto 4.7 % (2.6-8.5); Neutrophils Absolute Auto 8.9 K/mm3 (1.3-6.7); Neutrophils Percent Auto 75.4 % (45.5-73.1); Platelet Count Result 223 k/mm3 (150-375); Red Blood Count 4.29 M/mm3 (4.2-5.4); Red Cell Distribution Width 12.6 % (11.5-14.5); White Blood Count 11.8 K/mm3 (4.5-10.0)
[2024-03-11 12:37] LABS: Alanine Aminotransferase 21 U/L (6-35); Albumin Level 4.1 g/dL (3.5-5.1); Alkaline Phosphatase 76 U/L (38-126); Anion Gap 6 mmol/L (4-12); Aspartate Amino Transferase 20 U/L (14-36); Bilirubin,Total 0.5 mg/dL (0.2-1.3); Blood Urea Nitrogen 11 mg/dL (7-17); Calcium 9.2 mg/dL (8.4-10.2); Carbon Dioxide 20 mmol/L (22-30); Chloride 107 mmol/L (98-107); Estimated CRCL calculation 161 ml/min; Estimated Glomerular Filt Rate > 60; Glucose 92 mg/dL (65-110); Lipase 54 U/L (23-300); Potassium 3.8 mmol/L (3.4-5.0); Sodium 133 mmol/L (137-145)
[2024-03-11 12:41] LABS: Prothrombin Time 13.3 Seconds (11.1-14.7)
[2024-03-11 12:42] LABS: Partial Thromboplastin Time 25.5 Seconds (22.3-36.8)
[2024-03-11] MEDS: ASPIRIN 81 MG CHEWABLE TABLET 324 MG PO (12:42)
[2024-03-11 12:48] LABS: Troponin I < 0.012 ng/mL (0.000-0.034)
--- NOTE | 2024-03-11 15:33 | PC.NURSE ---
Pt refused 3h Trop, said she is tired of waiting and wants to go home and be with her kids. EDP made aware, AMA paper signed.
== END 2024-03-11 15:36 | disposition left against medical advice (07) ==
PROVIDERS: Emergency Provider Emergency Medicine; PCP Family Medicine Adolescent Medicine
DX: R55 Syncope and collapse (principal); R07.9 Chest pain, unspecified; M08.3 Juvenile rheumatoid polyarthritis (seronegative)
CPT/HCPCS: 36415; 71046; 80053; 83690; 84484; 85025; 85610; 85730; 93005; 99284; A9270

== ENCOUNTER 2024-03-29 10:58 | Observation (INO) | payer OTHER, SELFPAY ==
--- NOTE | ~2024-03-29 | US_ITS ---
EXAMINATION: US OB limited DATE: 03/29/2024 12:10 INDICATION: Abdominal pain. Estimated gestational age of 23 weeks and 4 days. TECHNIQUE: Real-time ultrasound of the pelvis was performed. COMPARISON: None. FINDINGS: There is a single fetus in breech presentation. The placenta is posterior. heart rate is 140 b eats per minute (bpm). The amniotic fluid index is 21.4 cm, which is normal. IMPRESSION: 1. Single living fetus in breech presentation. Reviewed, dictated and finalized at location A.
--- NOTE | ~2024-03-29 | US_ITS ---
EXAMINATION: US right upper quadrant DATE: 03/29/2024 12:10 INDICATION: Abdominal pain. TECHNIQUE: Multiple grayscale and Doppler ultrasound images of the abdomen were obtained. COMPARISON: CT abdomen and pelvis 07/15/2023 FINDINGS: The visualized portions of the head, body, and tail of the pancreas are normal. The liver i s normal without focal lesion. There is normal flow in main portal vein. The gallbladder is normal in size. No gallstones or gallbladder wall thickening. There is no sonographic Sheikh's sign. The commo n duct is normal and measures 3 mm. IMPRESSION: 1. Normal right upper quadrant ultrasound. Reviewed, dictated and finalized at location A.
[2024-03-29 11:24] VITALS: BP 128/84; PULSE 97
--- NOTE | 2024-03-29 11:29 | PM.OBTRLD ---
OB - Triage/Final Diagnosis Visit Information Date of evaluation: 03/29/24 Reason for evaluation: threatened labor Comments/Additional reasons for admission: I have assessed the risk for this patient, Judy Bradford, and determined that she would benefit from observation care. Evaluation Vital signs: Vital Signs - 24 hr 03/29/24 11:24 Pulse Rate 97 Blood Pressure 128/84
[2024-03-29 11:30] VITALS: BP 121/80; PULSE 88
[2024-03-29 12:09] LABS: Appearance Urine Cloudy (Clear); Bacteria Urine 4+ /hpf; Bilirubin Urine Negative (Negative); Blood Urine Negative (Negative); Color Urine Dark Yellow (Yellow); Glucose Urine UA Negative (Negative); Ketones Urine 2+ mg/dL (Negative); Leukocyte Esterase Ur Negative LEU/UL (Negative); Need Manual Microscopic Reviewed; Nitrate Urine Negative (Negative); Protein Urine 1+ mg/dL (Negative); Squamous Epithelial Cell Urine Many /hpf (Few)
[2024-03-29 12:10] LABS: Add Urine Microscopic? YES; Specific Grav Ur 1.042 (1.001-1.035)
[2024-03-29 12:15] VITALS: BMI 37.5
--- NOTE | 2024-03-29 12:17 | OBADM ---
This patient, Judy Bradford, admitted to the OB room OB Post 115 for observation. Patient/family oriented to hospital policies and general routines including ID bracelet, bed and alarms, visiting hours, pain management, procedures, bathroom and other care routines, personal items, smoking policy, room service/diet, and visiting hours. Patient/Family are encouraged to report perceived risks to care and to ask questions if they do not understand what they are told or what they should do.
[2024-03-29] MEDS: DEXTROSE 5%/LACTATED RINGERS 1,000 ML 999 ML IV CONT (13:27)
== END 2024-03-29 14:45 | disposition home or self-care (01) ==
PROVIDERS: Admitting Provider Obstetrics & Gynecology; PCP Family Medicine Adolescent Medicine; Visit Provider Obstetrics & Gynecology
DX: O47.02 False labor before 37 completed weeks of gestation, second trimester (principal); Z3A.23 23 weeks gestation of pregnancy
CPT/HCPCS: 76705; 76815; 81001; 87086; 96365; G0378; G0379; J0696; J7121

== ENCOUNTER 2024-04-16 09:23 | Observation (INO) | payer OTHER, SELFPAY ==
[2024-04-16] VITALS (45 sets, daily range): BP systolic 109–131; BP diastolic 64–90; PULSE 72–123; TEMP 36.6; O2SAT 96–100
--- NOTE | ~2024-04-16 | US_ITS ---
LIMITED OBSTETRIC ULTRASOUND Ordering provider: Conor Lira MD History: . Hx of abruption at 26 weeks with last preg. Dizzy . Comparison: March 29, 2024 FINDINGS/impression: Single live fetus. PRESENTATION: Vertex. Longitudinal lie. PLACENTAL LOCATION: Fundal No previa. Hypodense area seen posterior to the placenta which is suggesti ve of a hematoma indicative of an abruption. The hematoma measures 2.1 x 8.8 cm Follow-up advised. HEART RATE: 136 bpm (normal is between 110 to 160 bpm). AMNIOTIC FLUID INDEX: Normal Largest vertical pocket is 6.4 cm. Reviewed, dictated and finalized at location A.
[2024-04-16 09:17] LABS: Glucose Point of Care 111 mg/dl (65-105)
--- NOTE | 2024-04-16 09:55 | ECG_ITS ---
Test Date: 2024-04-16 10:24:18 Measurements Intervals [place] Rate: 72 P: 27 CT: 126 QRS: 48 QRSD: 98 T: 5 QT: 378 QTc: 414 Interpretive Statements SINUS RHYTHM NORMAL ELECTROCARDIOGRAM No previous ECG available for comparison Electronically Signed On 04-16-2024 15:22:34 CDT by Be Carrillo M.D.
[2024-04-16 10:34] LABS: Appearance Urine Cloudy (Clear); Bacteria Urine 1+ /hpf; Bilirubin Urine Negative (Negative); Blood Urine Negative (Negative); Color Urine Dark Yellow (Yellow); Glucose Urine UA 1+ mg/dL (Negative); Ketones Urine Trace mg/dL (Negative); Leukocyte Esterase Ur Negative LEU/UL (Negative); Mucus Urine Present /lpf; Need Manual Microscopic Reviewed; Nitrate Urine Negative (Negative); Protein Urine 1+ mg/dL (Negative); RBC Urine 0-2 /hpf (0-2); Squamous Epithelial Cell Urine Moderate /hpf (Few); pH Urine 5.5 (5.0-9.0)
[2024-04-16 10:35] LABS: Add Urine Microscopic? YES; Specific Grav Ur 1.031 (1.001-1.035)
--- NOTE | 2024-04-16 11:30 | PM.OBTRLD ---
OB - Triage/Final Diagnosis Visit Information Reason for evaluation: other (near syncope) Comments/Additional reasons for admission: I have assessed the risk for this patient, Judy Bradford, and determined that she would benefit from observation care. Evaluation Laboratory results: Laboratory Tests 04/16/24 04/16/24 09:11 09:40 POC Capillary Glucose 111 H Urine Color Dark yellow Urine Appearance Cloudy H Urine pH 5.5 Ur Specific [place] 1.031 Urine Protein 1+ H Urine Glucose (UA) 1+ H Urine Ketones Trace H Ur Blood (Man) Negative Urine Nitrate Negative Urine Bilirubin Negative Urine Urobilinogen 1.0 Add Ur Microanalysis Reviewed Leukocyte Esterase Rfl Negative Urine RBC 0-2 Urine WBC 6-10 H Ur Squamous Epith Cells Moderate Urine Bacteria 1+ H Urine Casts 11-20 Urine Mucus Present Vital signs: Vital Signs - 24 hr 04/16/24 09:13 04/16/24 09:15 04/16/24 09:30 Pulse Rate 85 86 81 Blood Pressure 127/78 125/90 114/74 Pulse Oximetry 04/16/24 09:43 04/16/24 09:44 04/16/24 10:02 Pulse Rate 78 93 Blood Pressure 110/73 109/70 Pulse Oximetry 99
[2024-04-16 12:32] LABS: Basophils Percent Auto 0.2 % (0.2-1.2); Eosinophils Percent Auto 0.2 % (0-4.4); Hematocrit 37.1 % (37.0-47.0); Immature Granulocyte Absolute 0.11 K/mm3 (0.00-0.031); Immature Granulocyte Percent A 0.8 % (0-0.5); Lymphocytes Absolute Auto 2.16 K/mm3 (0.9-3.2); Lymphocytes Percent Auto 16.5 % (18.3-44.2); Mean Corpuscular HGB Conc 32.3 g/dl (32-36); Mean Corpuscular Hemoglobin 28.1 pg (26-34); Mean Corpuscular Volume 86.9 fl (80-100); Mean Platelet Volume 10.7 fl (7.4-10.4); Monocytes Absolute Auto 0.6 K/mm3 (0.1-0.6); Monocytes Percent Auto 4.4 % (2.6-8.5); Neutrophils Absolute Auto 10.2 K/mm3 (1.3-6.7); Neutrophils Percent Auto 77.9 % (45.5-73.1); Platelet Count Result 230 k/mm3 (150-375); Red Blood Count 4.27 M/mm3 (4.2-5.4); Red Cell Distribution Width 13.1 % (11.5-14.5); White Blood Count 13.1 K/mm3 (4.5-10.0)
[2024-04-16 12:43] LABS: Alanine Aminotransferase 19 U/L (6-35); Albumin Level 3.9 g/dL (3.5-5.1); Alkaline Phosphatase 88 U/L (38-126); Anion Gap 5 mmol/L (4-12); Aspartate Amino Transferase 22 U/L (14-36); Bilirubin,Total 0.4 mg/dL (0.2-1.3); Blood Urea Nitrogen 9 mg/dL (7-17); Carbon Dioxide 24 mmol/L (22-30); Chloride 107 mmol/L (98-107); Estimated Glomerular Filt Rate > 60; Glucose 78 mg/dL (65-110); Potassium 3.7 mmol/L (3.4-5.0); Sodium 136 mmol/L (137-145)
[2024-04-16 12:48] LABS: Prothrombin Time 13.9 Seconds (11.1-14.7)
[2024-04-16 12:49] LABS: Fibrinogen 626 mg/dl (215-510); Partial Thromboplastin Time 25.7 Seconds (22.3-36.8)
--- NOTE | 2024-04-16 12:55 | PC.NURSE ---
Dr Marinelli here, US report reviewed. Arranging transport to [place].
--- NOTE | 2024-04-16 12:56 | PM.IMHP ---
H&P: HPI History of Present Illness Date/Time: 04/16/24 12:56 Chief Complaint: Dizziness Narrative: 33-year-old 3 para 10/31/2002 at 26 weeks gestation complaining of some dizziness. Significantly she a 26 week with an abruption in the past. She had noted be lightheaded. Ultrasound today reveals an 8.2cm hypoechoic area which appears to be a hematoma consistent with another abruption. She will receive steroids and be transferred soon as possible. [facility] Past Medical History Medical History History of placenta previa CHERYL (juvenile idiopathic arthritis), polyarthritis, 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) Ovarian cyst Rheumatoid arthritis Ulcer Surgical History Surgical History H/O skin graft September 2021 left hand H/O: History of appendectomy Hx of tonsillectomy Hx of tubal ligation Family History Family History Mother Diabetes mellitus Grandparent Acute myocardial infarction Sibling Diabetes mellitus Breast cancer Father Heart disease Other Family history of malignant neoplasm of breast in first degree relative Social History Social History Smoking status: Never smoker Tobacco type: e-cigarettes/vaping Second hand tobacco smoke exposure: No Alcohol intake: current Alcohol use details: Socially Substance use: never Substance use type: does not use Living arrangements: with family Spiritual care concerns: No Meds Home Medications and Allergies Home Medications Medication Instructions Recorded Confirmed Type [id number] 1 tablet PO DAILY 10/27/23 10/27/23 History fumarate 18 mg-folic acid 400 mcg tablet (One-A-Day Women's Complete) Allergies Allergy/AdvReac Type Severity Reaction Status Date / Time amoxicillin Allergy Intermediate Hives Verified 03/11/24 12:20 Penicillins Allergy Intermediate Hives Verified 03/11/24 12:20 hydroxychloroquine Allergy Mild Rash Verified 03/11/24 12:20 Vital Signs Vital Signs - 24 hr 04/16/24 09:13 04/16/24 09:15 04/16/24 09:30 Pulse Rate 85 86 81 Blood Pressure 127/78 125/90 114/74 Pulse Oximetry Oxygen Delivery 04/16/24 09:43 04/16/24 09:44 04/16/24 10:02 Pulse Rate 78 93 Blood Pressure 110/73 109/70 Pulse Oximetry 99 Oxygen Delivery 04/16/24 11:52 04/16/24 11:53 04/16/24 11:57 Pulse Rate 72 Blood Pressure 111/70 Pulse Oximetry 100 100 Oxygen Delivery 04/16/24 12:00 04/16/24 12:02 04/16/24 12:07 Pulse Rate 75 Blood Pressure 112/64 Pulse Oximetry 100 100 Oxygen Delivery 04/16/24 12:12 04/16/24 12:15 04/16/24 12:17 Pulse Rate 98 Blood Pressure 131/84 Pulse Oximetry 100 100 Oxygen Delivery 04/16/24 12:22 04/16/24 12:27 04/16/24 12:30 Pulse Rate 78 Blood Pressure 116/70 Pulse Oximetry 100 100 Oxygen Delivery 04/16/24 12:32 04/16/24 12:37 04/16/24 12:42 Pulse Rate Blood Pressure Pulse Oximetry 100 100 100 Oxygen Delivery 04/16/24 12:46 04/16/24 12:51 04/16/24 09:30 Pulse Rate Blood Pressure Pulse Oximetry 96 100 Oxygen Delivery Room Air Exam Const: General: cooperative, healthy appearing and comfortable Nutritional Appearance: average body habitus Orientation/consciousness: oriented to person, oriented to place and oriented to time HENMT: Head: normal to inspection Resp: Effort & Inspection: normal respiratory effort Cardio: Rate: regular rate Rhythm: regular rhythm Heart sounds: S1 normal heart sound present and S2 normal heart sound present GI: Inspection: normal to inspection ( Uterus is gravid and nontender) H&P: Results Labs Labs: Short CBC 04/16/24 Range/Units 12:17 WBC 13.1 H (4.5-10.0) K/mm3 Hg
--- NOTE | 2024-04-16 13:00 | PM.DS ---
DS: Admitting Diagnosis Discharge Date this Admitting Diagnosis placental abruption DS: Discharge Diagnosis Discharge Diagnosis (1) Placental abruption: Code(s): O45.90 - Premature separation of placenta, unspecified, unspecified trimester Status: Acute DS: Summary Hospital Course Reason for hospitalization: dizziness at 26 weeks Hospital Course: 33 year 3 para 2 admitted at 26 weeks gestation with dizziness ultrasound showed what appears to be a placental abruption. She has a history of this at 26 weeks and passed. She was given steroid Time Spent with Patient Time attestation: Total time spent providing and/or coordinating discharge services: Exam Const: General: cooperative, healthy appearing, comfortable and well groomed Orientation/consciousness: oriented to person, oriented to place and oriented to time Resp: Effort & Inspection: normal respiratory effort Cardio: Rate: regular rate Rhythm: regular rhythm Heart sounds: S1 normal heart sound present and S2 normal heart sound present GI: Inspection: normal to inspection DS: Data Data Completed and Pending Labs on day of discharge: Labs from last 24 hours 04/16/24 04/16/24 04/16/24 12:17 09:40 09:11 WBC 13.1 H RBC 4.27 Hgb 12.0 Hct 37.1 MCV 86.9 MCH 28.1 MCHC 32.3 RDW 13.1 Plt Count 230 MPV 10.7 H Immature Gran % (Auto) 0.8 H Neut % (Auto) 77.9 H Lymph % (Auto) 16.5 L [place] % (Auto) 4.4 Eos % (Auto) 0.2 Baso % (Auto) 0.2 Lymph # (Auto) 2.16 [place] # (Auto) 0.6 Eos # (Auto) 0.0 Baso # (Auto) 0.0 Abs Immat Gran (auto) 0.11 H Absolute Neuts (auto) 10.2 H Absolute Nucleated RBC 0.000 Nucleated RBC % 0.0 PT 13.9 INR 1.0 APTT 25.7 Fibrinogen 626 H Sodium 136 L Potassium 3.7 Chloride 107 Carbon Dioxide 24 Anion Gap 5 BUN 9 Creatinine 0.40 L Estim Creat Clear Calc Not Reportable Estimated GFR > 60 Glucose 78 POC Capillary Glucose 111 H Calcium 9.0 Total Bilirubin 0.4 AST 22 ALT 19 Alkaline Phosphatase 88 Total Protein 7.0 Albumin 3.9 Urine Color Dark yellow Urine Appearance Cloudy H Urine pH 5.5 Ur Specific [place] 1.031 Urine Protein 1+ H Urine Glucose (UA) 1+ H Urine Ketones Trace H Ur Blood (Man) Negative Urine Nitrate Negative Urine Bilirubin Negative Urine Urobilinogen 1.0 Add Ur Microanalysis Reviewed Leukocyte Esterase Rfl Negative Urine RBC 0-2 Urine WBC 6-10 H Ur Squamous Epith Cells Moderate Urine Bacteria 1+ H Urine Casts 11-20 Urine Mucus Present Discharge Plan Discharge Attending physician on discharge: Conor Trimble Consulting providers: Be Carrillo; Kush Contreras Discharging Clinician: Conor Trimble Patient Disposition: Acute Care Hospital Activity: no straining and pelvic rest Diet: heart healthy Wound Care Instructions: follow printed instructions Follow-up/Referrals: Conor Trimble MD [Physician] - Discharge Medications: Continued One-A-Day Women's Complete 18 mg iron- 400 mcg Tablet 1 tablet PO DAILY Date of admission: 04/16/24 09:23 Primary Care Provider: Lm Ware Admitting Provider: Conor Trimble Attending physician on admission: Conor Trimble Condition: Stable
--- NOTE | 2024-04-16 13:20 | PC.NURSE ---
Dr Marinelli at bedside, discussed transfer of care with patient and family. Patient agreeable to transfers.
--- NOTE | 2024-04-16 13:28 | PC.NURSE ---
EMS called for transport to [facility]
[2024-04-16] MEDS: BETAMETHASONE SOD PHOS/ACETATE 30 MG/5 ML VIAL 12 MG IM (13:47)
== END 2024-04-16 14:18 | disposition short-term general hospital (02) ==
PROVIDERS: Admitting Provider Obstetrics & Gynecology; PCP Family Medicine Adolescent Medicine; Visit Provider Obstetrics & Gynecology
DX: O45.92 Premature separation of placenta, unspecified, second trimester (principal); Z3A.26 26 weeks gestation of pregnancy
CPT/HCPCS: 36415; 76815; 80053; 81001; 82948; 85025; 85384; 85610; 85730; 86900; 86901; 87086; 93005; 96372; G0378; G0379; J0702

== ENCOUNTER 2024-05-15 13:46 | Observation (INO) | payer OTHER, SELFPAY ==
[2024-05-15 14:15] VITALS: BP 123/79; PULSE 99
[2024-05-15 14:30] VITALS: BP 124/75; PULSE 82
[2024-05-15 14:56] LABS: Appearance Urine Clear (Clear); Bacteria Urine 1+ /hpf; Bilirubin Urine Negative (Negative); Blood Urine Negative (Negative); Color Urine Dark Yellow (Yellow); Glucose Urine UA Negative (Negative); Ketones Urine 3+ mg/dL (Negative); Leukocyte Esterase Ur Negative LEU/UL (Negative); Nitrate Urine Negative (Negative); Protein Urine Trace mg/dL (Negative); RBC Urine 0-2 /hpf (0-2); Specific Grav Ur 1.028 (1.001-1.035); Squamous Epithelial Cell Urine Few /hpf (Few); WBC Urine 0-5 /hpf (0-3); pH Urine 5.5 (5.0-9.0)
[2024-05-15 14:58] LABS: Add Urine Microscopic? YES
[2024-05-15 15:52] VITALS: BMI 37.7
--- NOTE | 2024-05-15 15:52 | OBADM ---
This patient, Judy Bradford, admitted to the OB room OB Post 116 for observation. Patient/family oriented to hospital policies and general routines including ID bracelet, bed and alarms, visiting hours, pain management, procedures, bathroom and other care routines, personal items, smoking policy, room service/diet, and visiting hours. Patient/Family are encouraged to report perceived risks to care and to ask questions if they do not understand what they are told or what they should do.
[2024-05-15 16:38] LABS: Fetal Fibronectin Negative
--- NOTE | 2024-05-29 12:28 | PM.OBTRLD ---
OB - Triage/Final Diagnosis Visit Information Comments/Additional reasons for admission: I have assessed the risk for this patient, Judy Avilatz, and determined that she would benefit from observation care. Evaluation Laboratory results: Laboratory Tests 05/15/24 05/15/24 14:41 15:35 Urine Color Dark yellow Urine Appearance Clear Urine pH 5.5 Ur Specific [place] 1.028 Urine Protein Trace Urine Glucose (UA) Negative Urine Ketones 3+ H Ur Blood (Man) Negative Urine Nitrate Negative Urine Bilirubin Negative Urine Urobilinogen 1.0 Leukocyte Esterase Rfl Negative Urine RBC 0-2 Urine WBC 0-5 Ur Squamous Epith Cells Few Urine Bacteria 1+ H Urine Casts 3-5 Fibronectin Negative Final Diagnosis (1) contractions: Code(s): O47.00 - False labor before 37 completed weeks of gestation, unspecified trimester Status: Acute
== END 2024-05-15 16:52 | disposition home or self-care (01) ==
PROVIDERS: Admitting Provider Obstetrics & Gynecology; PCP Family Medicine Adolescent Medicine; Visit Provider Obstetrics & Gynecology
DX: O47.03 False labor before 37 completed weeks of gestation, third trimester (principal); Z3A.30 30 weeks gestation of pregnancy
CPT/HCPCS: 81001; 82731; G0378; G0379

== ENCOUNTER 2024-06-04 08:46 | Observation (INO) | payer OTHER, SELFPAY ==
[2024-06-04 09:15] VITALS: BP 127/76; PULSE 74
[2024-06-04 09:16] VITALS: BMI 38.9
[2024-06-04 09:16] LABS: Add Urine Microscopic? NO; Appearance Urine Clear (Clear); Bilirubin Urine Negative (Negative); Blood Urine Negative (Negative); Color Urine Yellow (Yellow); Glucose Urine UA Negative (Negative); Ketones Urine Negative (Negative); Leukocyte Esterase Ur Negative LEU/UL (Negative); Nitrate Urine Negative (Negative); Protein Urine Negative (Negative); Specific Grav Ur 1.007 (1.001-1.035); Urobilinogen Urine 0.2 mg/dL (<2.0)
--- NOTE | 2024-06-04 09:16 | OBADM ---
This patient, Judy Bradford, admitted to the OB room OB Post 117 for observation. Patient/family oriented to hospital policies and general routines including ID bracelet, bed and alarms, visiting hours, pain management, procedures, bathroom and other care routines, personal items, smoking policy, room service/diet, and visiting hours. Patient/Family are encouraged to report perceived risks to care and to ask questions if they do not understand what they are told or what they should do.
[2024-06-04 09:30] VITALS: BP 124/92; PULSE 76
[2024-06-04] MEDS: TERBUTALINE SULFATE 1 MG/ML VIAL 0.25 MG SUB-Q (09:34)
[2024-06-04 10:00] VITALS: BP 129/68; PULSE 89
[2024-06-04 10:30] VITALS: BP 126/72; PULSE 95
--- NOTE | 2024-06-05 11:49 | P.PNOB_ITS ---
OB - Triage/Final Diagnosis Visit Information Date of evaluation: 06/05/24 Reason for evaluation: threatened labor Comments/Additional reasons for admission: I have assessed the risk for this patient, Judy Bradford, and determined that she would benefit from observation care. Evaluation Laboratory results: Laboratory Tests 06/04/24 09:01 Urine Color Yellow Urine Appearance Clear Urine pH 7.0 Ur Specific [place] 1.007 Urine Protein Negative Urine Glucose (UA) Negative Urine Ketones Negative Ur Blood (Man) Negative Urine Nitrate Negative Urine Bilirubin Negative Urine Urobilinogen 0.2 Leukocyte Esterase Rfl Negative
== END 2024-06-04 10:53 | disposition home or self-care (01) ==
PROVIDERS: Admitting Provider Obstetrics & Gynecology; PCP Family Medicine Adolescent Medicine; Visit Provider Obstetrics & Gynecology
DX: O47.03 False labor before 37 completed weeks of gestation, third trimester (principal); Z3A.32 32 weeks gestation of pregnancy
CPT/HCPCS: 81003; 96372; G0378; G0379; J3105

== ENCOUNTER 2024-06-20 06:38 | Observation (INO) | payer OTHER, SELFPAY ==
[2024-06-20 07:03] VITALS: BP 127/86; PULSE 83
[2024-06-20] MEDS: LOPERAMIDE HCL 2 MG CAPSULE PO (07:20)
[2024-06-20 07:30] VITALS: BP 122/77; PULSE 71
[2024-06-20 07:45] LABS: Add Urine Microscopic? YES; Appearance Urine Turbid (Clear); Bacteria Urine 4+ /hpf; Bilirubin Urine Negative (Negative); Blood Urine Negative (Negative); Calcium Oxalate Crystals Urine Present /hpf; Color Urine Dark Yellow (Yellow); Glucose Urine UA Negative (Negative); Ketones Urine Negative (Negative); Leukocyte Esterase Ur Trace LEU/UL (Negative); Need Manual Microscopic Reviewed; Nitrate Urine Negative (Negative); Protein Urine 1+ mg/dL (Negative); Squamous Epithelial Cell Urine Many /hpf (Few); Urobilinogen Urine 0.2 mg/dL (<2.0); WBC Urine 21-50 /hpf (0-3); pH Urine 5.5 (5.0-9.0)
--- NOTE | 2024-06-20 08:00 | PC.NURSE ---
In to discuss plan of care with pt and s.o., discussed order for terbutaline, stool sample, and urine sent for culture. Pt does not want the terbutaline, discussed risk of delivery. Pt states she is religous and they do not like to do things that are not natural. States she has already had the shot 2 times and does not want it again. Discussed staying for PO hydration and to see if that helps decrease contractions. Pt and s.o. are going to discuss plan.
[2024-06-20 08:23] LABS: OBXCEM ROM Plus Negative
--- NOTE | 2024-06-21 12:11 | PM.OBTRLD ---
OB - Triage/Final Diagnosis Visit Information Date of evaluation: 06/20/24 Reason for evaluation: threatened labor Comments/Additional reasons for admission: I have assessed the risk for this patient, Judy Bradford, and determined that she would benefit from observation care. Evaluation Laboratory results: Laboratory Tests 06/20/24 06/20/24 07:15 07:20 Urine Color Dark yellow Urine Appearance Turbid H Urine pH 5.5 Ur Specific [place] 1.030 Urine Protein 1+ H Urine Glucose (UA) Negative Urine Ketones Negative Ur Blood (Man) Negative Urine Nitrate Negative Urine Bilirubin Negative Urine Urobilinogen 0.2 Add Ur Microanalysis Reviewed Leukocyte Esterase Rfl Trace H Urine RBC 11-20 H Urine WBC 21-50 H Ur Squamous Epith Cells Many H Calcium Oxalate Crystal Present Urine Bacteria 4+ H Urine Casts 6-10 Membranes Rupture Rom plus negative Membranes Rup Com Yes
== END 2024-06-20 08:55 | disposition home or self-care (01) ==
PROVIDERS: Admitting Provider Obstetrics & Gynecology; PCP Family Medicine Adolescent Medicine; Visit Provider Obstetrics & Gynecology
DX: O47.03 False labor before 37 completed weeks of gestation, third trimester (principal); Z3A.34 34 weeks gestation of pregnancy
CPT/HCPCS: 81001; 84112; 87086; 87088; A9270; G0378; G0379

== ENCOUNTER 2024-06-23 01:51 | Observation (INO) | payer OTHER, SELFPAY ==
[2024-06-23] VITALS (101 sets, daily range): BP systolic 116–151; BP diastolic 66–88; PULSE 64–108; RESP 20; TEMP 36.6–37.2; O2SAT 95–100; BMI 38.7
--- NOTE | ~2024-06-23 | US_ITS ---
EXAMINATION: US OB limited DATE: 06/23/2024 07:59 INDICATION: Abdominal pain. Third trimester of . TECHNIQUE: Real-time ultrasound of the pelvis was performed. COMPARISON: Ultrasound 04/16/2024 FINDINGS: There is a single fetus in vertex presentation. The placenta is posterior. heart rate is 130 b eats per minute (bpm). The amniotic fluid index is 7.1 cm, which is low (5th percentile is 7.9 cm). IMPRESSION: 1. Single living fetus in vertex presentation. 2. Oligohydramnios. Reviewed, dictated and finalized at location A.
--- NOTE | ~2024-06-23 | US_ITS ---
EXAMINATION: US renal BI DATE: 06/23/2024 07:59 INDICATION: Kidney pain. TECHNIQUE: Multiple ultrasound grayscale images of the kidneys were obtained. COMPARISON: CT abdomen and pelvis 07/15/2023 FINDINGS: The right kidney measures 11.4 x 5.3 x 5.4 cm. The left kidney measures 11.5 x 5.3 x 5.3 cm. The kidn eys demonstrate normal parenchymal echogenicity. There is mild right hydronephrosis. The bladder is n ormal. There is an intrauterine in vertex presentation. IMPRESSION: 1. Mild right hydronephrosis. Reviewed, dictated and finalized at location A.
--- NOTE | ~2024-06-23 | US_ITS ---
EXAMINATION: US right upper quadrant DATE: 06/23/2024 07:59 INDICATION: Abdominal pain. TECHNIQUE: Multiple grayscale and Doppler ultrasound images of the abdomen were obtained. COMPARISON: CT abdomen and pelvis 07/15/2023 FINDINGS: The visualized portion of the head of the pancreas is normal. The liver is normal without f ocal lesion. There is normal flow in main portal vein. The gallbladder is normal in size. No gallston es or gallbladder wall thickening. There is no sonographic Sheikh's sign. The common duct is normal a nd measures 4 mm. IMPRESSION: 1. Normal right upper quadrant ultrasound. Reviewed, dictated and finalized at location A.
[2024-06-23 03:09] LABS: Add Urine Microscopic? NO; Appearance Urine Clear (Clear); Bilirubin Urine Negative (Negative); Blood Urine Negative (Negative); Color Urine Yellow (Yellow); Glucose Urine UA Negative (Negative); Ketones Urine Negative (Negative); Leukocyte Esterase Ur Negative LEU/UL (Negative); Nitrate Urine Negative (Negative); Protein Urine Negative (Negative); Specific Grav Ur 1.014 (1.001-1.035); Urobilinogen Urine 0.2 mg/dL (<2.0); pH Urine 6.5 (5.0-9.0)
[2024-06-23] MEDS: DEXTROSE 5%/LACTATED RINGERS 1,000 ML 999 ML IV CONT (03:42)
--- NOTE | 2024-06-23 03:45 | OBADM ---
This patient, Judy Bradford, admitted to the OB room Labor/Delivery/Recovery 104 for observation. Patient/family oriented to hospital policies and general routines including ID bracelet, bed and alarms, visiting hours, pain management, procedures, bathroom and other care routines, personal items, smoking policy, room service/diet, and visiting hours. Patient/Family are encouraged to report perceived risks to care and to ask questions if they do not understand what they are told or what they should do.
[2024-06-23] MEDS: CYCLOBENZAPRINE HCL 10 MG TABLET PO (05:27)
[2024-06-23 05:41] LABS: Basophils Percent Auto 0.3 % (0.2-1.2); Eosinophils Percent Auto 0.4 % (0-4.4); Hematocrit 32.2 % (37.0-47.0); Hemoglobin 10.4 g/dL (12.0-15.0); Immature Granulocyte Absolute 0.08 K/mm3 (0.00-0.031); Immature Granulocyte Percent A 0.8 % (0-0.5); Lymphocytes Absolute Auto 1.43 K/mm3 (0.9-3.2); Lymphocytes Percent Auto 14.6 % (18.3-44.2); Mean Corpuscular HGB Conc 32.3 g/dl (32-36); Mean Corpuscular Hemoglobin 27.2 pg (26-34); Mean Corpuscular Volume 84.3 fl (80-100); Mean Platelet Volume 10.9 fl (7.4-10.4); Monocytes Absolute Auto 0.4 K/mm3 (0.1-0.6); Monocytes Percent Auto 3.7 % (2.6-8.5); Neutrophils Absolute Auto 7.9 K/mm3 (1.3-6.7); Neutrophils Percent Auto 80.2 % (45.5-73.1); Platelet Count Result 172 k/mm3 (150-375); Red Blood Count 3.82 M/mm3 (4.2-5.4); Red Cell Distribution Width 13.7 % (11.5-14.5); White Blood Count 9.8 K/mm3 (4.5-10.0)
[2024-06-23] MEDS: LACTATED RINGERS 1,000 ML 125 ML IV CONT (05:57)
[2024-06-23 06:05] LABS: Alanine Aminotransferase 21 U/L (6-35); Albumin Level 2.9 g/dL (3.5-5.1); Alkaline Phosphatase 110 U/L (38-126); Anion Gap 8 mmol/L (4-12); Aspartate Amino Transferase 23 U/L (14-36); Bilirubin,Total 0.2 mg/dL (0.2-1.3); Blood Urea Nitrogen 6 mg/dL (7-17); Calcium 8.7 mg/dL (8.4-10.2); Carbon Dioxide 21 mmol/L (22-30); Chloride 105 mmol/L (98-107); Estimated CRCL calculation 136 ml/min; Estimated Glomerular Filt Rate > 60; Glucose 136 mg/dL (65-110); Potassium 3.3 mmol/L (3.4-5.0); Sodium 134 mmol/L (137-145)
[2024-06-23] MEDS: NIFEdipine 10 MG CAPSULE PO (09:36)
[2024-06-23] MEDS: hydrOXYzine HCl 50 MG/ML VIAL IM (11:23)
[2024-06-23] MEDS: MEPERIDINE HCL INJ (*CRX) 50 MG/ML AMPUL IM (11:23)
--- NOTE | 2024-06-23 15:23 | PM.OBTRLD ---
OB - Triage/Final Diagnosis Visit Information Date of evaluation: 06/23/24 Reason for evaluation: threatened labor Comments/Additional reasons for admission: I have assessed the risk for this patient, Judy Bradford, and determined that she would benefit from observation care. Evaluation Laboratory results: Laboratory Tests 06/23/24 06/23/24 03:04 05:27 WBC 9.8 RBC 3.82 L Hgb 10.4 L Hct 32.2 L MCV 84.3 MCH 27.2 MCHC 32.3 RDW 13.7 Plt Count 172 MPV 10.9 H Immature Gran % (Auto) 0.8 H Neut % (Auto) 80.2 H Lymph % (Auto) 14.6 L [place] % (Auto) 3.7 Eos % (Auto) 0.4 Baso % (Auto) 0.3 Lymph # (Auto) 1.43 [place] # (Auto) 0.4 Eos # (Auto) 0.0 Baso # (Auto) 0.0 Abs Immat Gran (auto) 0.08 H Absolute Neuts (auto) 7.9 H Absolute Nucleated RBC 0.000 Nucleated RBC % 0.0 Sodium 134 L Potassium 3.3 L Chloride 105 Carbon Dioxide 21 L Anion Gap 8 BUN 6 L Creatinine 0.50 L Estim Creat Clear Calc 136 Estimated GFR > 60 Glucose 136 H Calcium 8.7 Total Bilirubin 0.2 AST 23 ALT 21 Alkaline Phosphatase 110 Total Protein 6.0 L Albumin 2.9 L Urine Color Yellow Urine Appearance Clear Urine pH 6.5 Ur Specific [place] 1.014 Urine Protein Negative Urine Glucose (UA) Negative Urine Ketones Negative Ur Blood (Man) Negative Urine Nitrate Negative Urine Bilirubin Negative Urine Urobilinogen 0.2 Leukocyte Esterase Rfl Negative Vital signs: Vital Signs - 24 hr 06/23/24 02:03 06/23/24 02:07 06/23/24 04:01 Temperature 98 F Pulse Rate 70 64 Respiratory Rate Blood Pressure 145/80 H 126/76 Pulse Oximetry 06/23/24 05:01 06/23/24 05:28 06/23/24 05:33 Temperature Pulse Rate 78 Respiratory Rate Blood Pressure 151/87 H Pulse Oximetry 95 98 06/23/24 05:38 06/23/24 05:43 06/23/24 05:48 Temperature Pulse Rate Respiratory Rate Blood Pressure Pulse Oximetry 98 98 98 06/23/24 05:56 06/23/24 06:01 06/23/24 06:06 Temperature Pulse Rate 69 Respiratory Rate Blood Pressure 121/70 Pulse Oximetry 100 100 98 06/23/24 06:11 06/23/24 06:16 06/23/24 06:21 Temperature Pulse Rate Respiratory Rate Blood Pressure Pulse Oximetry 99 99 100 06/23/24 06:26 06/23/24 06:35 06/23/24 06:40 Temperature Pulse Rate Respiratory Rate Blood Pressure Pulse Oximetry 100 99 98 06/23/24 06:45 06/23/24 06:50 06/23/24 06:55 Temperature Pulse Rate Respiratory Rate Blood Pressure Pulse Oximetry 98 98 99 06/23/24 07:00 06/23/24 07:05 06/23/24 07:10 Temperature 98.3 F Pulse Rate 74 Respiratory Rate 20 Blood Pressure 127/78 Pulse Oximetry 98 99 98 06/23/24 07:15 06/23/24 08:05 06/23/24 08:10 Temperature Pulse Rate Respiratory Rate Blood Pressure Pulse Oximetry 100 98 98 06/23/24 08:15 06/23/24 08:20 06/23/24 08:23 Temperature Pulse Rate Respiratory Rate Blood Pressure Pulse Oximetry 97 98 100 06/23/24 08:24 06/23/24 08:28 06/23/24 08:31 Temperature Pulse Rate 79 81 Respiratory Rate Blood Pressure 121/76 124/75 Pulse Oximetry 100 06/23/24 08:33 06/23/24 08:38 06/23/24 08:43 Temperature Pulse Rate Respiratory Rate Blood Pressure Pulse Oximetry 100 100 99 06/23/24 08:46 06/23/24 08:48 06/23/24 08:53 Temperature Pulse Rate 91 Respiratory Rate Blood Pressure 127/77 Pulse Oximetry 98 100 06/23/24 08:58 06/23/24 09:01 06/23/24 09:03 Temperature Pulse Rate 81 Respiratory Rate Blood Pressure 133/88 Pulse Oximetry 100 100 06/23/24 09:08 06/23/24 09:13 06/23/24 09:16 Temperature Pulse Rate 83 Respiratory Rate Blood Pressure 118/66 Pulse Oximetry 100 100 06/23/24 09:18 06/23/24 09:23 06/23/24 09:28 Temperature Pulse Rate Respiratory Rate Blood Pressure Pulse Oximetry 100 99 100 08
== END 2024-06-23 14:27 | disposition home or self-care (01) ==
PROVIDERS: Admitting Provider Obstetrics & Gynecology; PCP Family Medicine Adolescent Medicine; Visit Provider Obstetrics & Gynecology
DX: O47.9 False labor, unspecified (principal)
CPT/HCPCS: 36415; 76705; 76775; 76815; 80053; 81003; 85025; 96360; 96361; 96372; A9270; G0378; J2175; J3410; J7120; J7121

== ENCOUNTER 2024-06-23 20:31 | Observation (INO) | payer OTHER, SELFPAY ==
[2024-06-23] VITALS (11 sets, daily range): BP systolic 123–144; BP diastolic 74–87; PULSE 91–106; TEMP 37.4; BMI 38.6
--- NOTE | 2024-06-23 21:26 | ECG_ITS ---
Test Date: 2024-06-23 21:34:01 Measurements Intervals [place] Rate: 100 P: 26 SC: 127 QRS: 33 QRSD: 88 T: 16 QT: 343 QTc: 444 Interpretive Statements SINUS TACHYCARDIA Compared to ECG 04/16/2024 10:24:18 Sinus tachycardia now present Electronically Signed On 06-24-2024 10:39:39 CDT by Xander Fritz M.D.
--- NOTE | 2024-06-23 23:39 | OBADM ---
This patient, Judy Bradford, admitted to the OB room Labor/Delivery/Recovery 109 for observation. Patient/family oriented to hospital policies and general routines including ID bracelet, bed and alarms, visiting hours, pain management, procedures, bathroom and other care routines, personal items, smoking policy, room service/diet, and visiting hours. Patient/Family are encouraged to report perceived risks to care and to ask questions if they do not understand what they are told or what they should do.
[2024-06-24] VITALS (21 sets, daily range): BP systolic 115–138; BP diastolic 64–93; PULSE 81–111; TEMP 36.8–37.1
[2024-06-24] MEDS: NIFEdipine 10 MG CAPSULE PO ×2 (06:43)
--- NOTE | 2024-06-24 07:41 | PC.NURSE ---
0727--Assisted pt from sitting/dangle position to high fowlers position in the bed. Pt stated she was comfortable in that position.
--- NOTE | 2024-06-24 09:32 | PM.IMHP ---
H&P: HPI History of Present Illness Date/Time: 06/24/24 09:32 Chief Complaint: pain Narrative: this is a 34 3 para 10/31/2002 whose last menstrual period was 10/20/2023, EDC is 07/26/2024, this was confirmed by an 8 week ultrasound which gives her an estimated gestational age of 33 and 4 7th weeks gestation. She has had multiple visits during this . She had a history of an abruption that resulted in a . Previously she had a vaginal delivery. She is status post tubal reversal. She left yesterday after having some pain and went to her baby shower and the pain suddenly reappeared after the baby sharp was over. Thus far ultrasound and imaging as well as with the testing has all been negative. She does have occasional contractions for which she has taken Procardia in the past but is presently refusing to do so. heart tones reassuring that the uterus remained soft PMFSH Past Medical History Medical History History of placenta previa CHERYL (juvenile idiopathic arthritis), polyarthritis, 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) Ovarian cyst Rheumatoid arthritis Ulcer Surgical History Surgical History H/O skin graft September 2021 left hand H/O: History of appendectomy Hx of tonsillectomy Hx of tubal ligation Family History Family History Mother Diabetes mellitus Grandparent Acute myocardial infarction Sibling Diabetes mellitus Breast cancer Father Heart disease Other Family history of malignant neoplasm of breast in first degree relative Social History Social History Smoking status: Never smoker Tobacco type: e-cigarettes/vaping Second hand tobacco smoke exposure: No Alcohol intake: current Alcohol use details: Socially Substance use: never Substance use type: does not use Living arrangements: with family Spiritual care concerns: No Meds Home Medications and Allergies Home Medications Medication Instructions Recorded Confirmed Type [id number] 1 tablet PO DAILY 10/27/23 06/23/24 History fumarate 18 mg-folic acid 400 mcg tablet (One-A-Day Women's Complete) acetaminophen 500 mg tablet 1,000 mg PO Q6H PRN Pain 06/23/24 06/23/24 History (Tylenol Extra Strength) nifedipine 10 mg capsule 10 mg 06/24/24 History Allergies Allergy/AdvReac Type Severity Reaction Status Date / Time amoxicillin Allergy Intermediate Hives Verified 03/11/24 12:20 Penicillins Allergy Intermediate Hives Verified 03/11/24 12:20 hydroxychloroquine Allergy Mild Rash Verified 03/11/24 12:20 Vital Signs Vital Signs - 24 hr 06/23/24 21:30 06/23/24 21:45 06/23/24 22:00 Temperature Pulse Rate 96 95 102 H Blood Pressure 144/87 H 134/82 123/80 06/23/24 22:15 06/23/24 22:30 06/23/24 22:45 Temperature Pulse Rate 94 104 H 98 Blood Pressure 125/75 135/86 126/86 06/23/24 23:10 06/23/24 23:16 06/23/24 23:30 Temperature Pulse Rate 106 H 100 101 H Blood Pressure 136/84 123/74 132/85 06/23/24 23:45 06/24/24 00:01 06/24/24 00:15 Temperature Pulse Rate 91 99 98 Blood Pressure 134/76 131/78 117/73 06/24/24 00:30 06/24/24 00:45 06/24/24 01:00 Temperature Pulse Rate 93 97 92 Blood Pressure 115/68 120/68 122/70 06/23/24 23:00 06/24/24 01:16 06/24/24 02:42 Temperature 99.3 F Pulse Rate 95 97 Blood Pressure 126/73 136/83 06/24/24 03:01 06/24/24 02:00 06/24/24 03:00 Temperature 98.5 F 98.2 F Pulse Rate 92 Blood Pressure 116/64 06/24/24 03:30 06/24/24 04:00 06/24/24 04:30 Temperature Pulse Rate 102 H 99 92 Blood Pressure 117/77 117/71 123/74 06/24/24 06:45 06/24/24 07:29 06/24/24 08:01 Temperature Pulse Rate 94 92 85 Blood Pressure 132/91 H
--- NOTE | 2024-06-24 09:44 | PM.OBPNVD ---
OB - PN: Subj Subjective Date/time seen: 06/24/24 09:44 Interval history: The I explained to the patient that discomforts of or and that so far all testing showed that the baby is doing well and will do better in the uterus rather that out at this early stage. I offered her a 2nd opinion another physician if she is uncomfortable with my diagnosis at this time she did seem interested. The baby continues to show reassuring heart tones with irregular contractions and I have suggested that she continue with Procardia and some Flexeril for the discomfort OB - PN A/P Time Spent With Patient Time: Total time spent is greater than 50% in coordination of care (as documented) at patient's floor/unit and/or counseling patient:
--- NOTE | 2024-06-24 11:33 | PC.NURSE ---
1925--see obix notes for all pt assessment
[2024-06-24] MEDS: ACETAMINOPHEN 500 MG TABLET 1000 MG PO (12:02)
--- NOTE | 2024-06-26 07:22 | PM.OBTRLD ---
OB - Triage/Final Diagnosis Visit Information Date of evaluation: 06/25/24 Reason for evaluation: threatened labor Comments/Additional reasons for admission: I have assessed the risk for this patient, Judy Bradford, and determined that she would benefit from observation care.
== END 2024-06-24 14:00 | disposition home or self-care (01) ==
PROVIDERS: Admitting Provider Obstetrics & Gynecology; PCP Family Medicine Adolescent Medicine; Visit Provider Obstetrics & Gynecology
DX: O47.03 False labor before 37 completed weeks of gestation, third trimester (principal); Z3A.34 34 weeks gestation of pregnancy
CPT/HCPCS: 36415; 76705; 76775; 76815; 80053; 81003; 85025; 93005; 96360; 96361; 96372; A9270; G0378; G0379; J2175; J3410; J7120; J7121

== ENCOUNTER 2024-06-27 12:10 | Observation (INO) | payer OTHER, SELFPAY ==
--- NOTE | ~2024-06-27 | US_ITS ---
Duplex Sonography of the right extremity: Indication: Swelling, redness Findings: Sagittal and transverse B-mode images as well as color-flow imaging were performed on the r ight femoral and popliteal veins. B-mode examination was done without and with compression in the tr ansverse plane. There is good visualization of the common femoral, proximal profunda femoral, superf icial femoral, greater saphenous, and popliteal veins. Normal flow was seen on color-flow imaging. N ormal compressibility was demonstrated. Visualized calf veins are also patent. Impression: No evidence of deep vein thrombosis involving the right lower extremity. Reviewed, dictated and finalized at location . Impression: No evidence of deep vein thrombosis involving the right lower extremity.
[2024-06-27 12:40] VITALS: BP 137/82; PULSE 83; RESP 18; TEMP 36.6; BMI 39.9
--- NOTE | 2024-06-27 12:40 | OBADM ---
This patient, Judy Bradford, admitted to the OB room 115 for observation for right foot /ankle swelling, redness, and itching. Patient/family oriented to hospital policies and general routines including ID bracelet, bed and alarms, visiting hours, pain management, procedures, bathroom and other care routines, personal items, smoking policy, room service/diet, and visiting hours. Patient/Family are encouraged to report perceived risks to care and to ask questions if they do not understand what they are told or what they should do.
[2024-06-27 12:46] VITALS: BP 124/90; PULSE 88
[2024-06-27 13:01] VITALS: BP 128/81; PULSE 74
[2024-06-27 13:04] VITALS: BP 128/81; PULSE 74
--- NOTE | 2024-06-27 13:07 | PC.NURSE ---
Dr. Clarisa Lira returned page and informed that both of pt's legs have 2+ pitting edema, but right ankle is reddened and warm to touch. Order received for doppler of Right leg.
--- NOTE | 2024-06-27 13:55 | PC.NURSE ---
Dr. Clarisa Lira informed doppler of right leg is normal. Order for Keflex and discharge received.
--- NOTE | 2024-07-13 07:29 | PM.OBTRLD ---
OB - Triage/Final Diagnosis Visit Information Reason for evaluation: threatened labor Comments/Additional reasons for admission: I have assessed the risk for this patient, Judy Henderson Eveline, and determined that she would benefit from observation care.
== END 2024-06-27 14:29 | disposition home or self-care (01) ==
PROVIDERS: Admitting Provider Obstetrics & Gynecology; PCP Family Medicine Adolescent Medicine; Visit Provider Obstetrics & Gynecology
DX: O47.03 False labor before 37 completed weeks of gestation, third trimester (principal); Z3A.35 35 weeks gestation of pregnancy
CPT/HCPCS: 59025; 93971; G0378; G0379

== ENCOUNTER 2024-06-30 21:53 | Observation (INO) | payer OTHER, SELFPAY ==
[2024-06-30 22:00] VITALS: BMI 37.8
[2024-06-30 22:31] VITALS: BP 133/85; PULSE 79
[2024-06-30 23:01] VITALS: BP 128/82; PULSE 79
[2024-06-30 23:31] VITALS: BP 126/85; PULSE 77
[2024-07-01 00:01] VITALS: BP 137/94; PULSE 85
--- NOTE | 2024-07-01 00:25 | OBADM ---
This patient, Judy Bradford, admitted to the OB room Labor/Delivery/Recovery 107 for observation. Patient/family oriented to hospital policies and general routines including ID bracelet, bed and alarms, visiting hours, pain management, procedures, bathroom and other care routines, personal items, smoking policy, room service/diet, and visiting hours. Patient/Family are encouraged to report perceived risks to care and to ask questions if they do not understand what they are told or what they should do.
--- NOTE | 2024-07-27 11:57 | PM.OBTRLD ---
OB - Triage/Final Diagnosis Visit Information Comments/Additional reasons for admission: I have assessed the risk for this patient, Judy Mosquera, and determined that she would benefit from observation care. Final Diagnosis (1) False labor: Code(s): O47.9 - False labor, unspecified Status: Acute
== END 2024-07-01 00:40 | disposition home or self-care (01) ==
PROVIDERS: Admitting Provider Obstetrics & Gynecology; PCP Family Medicine Adolescent Medicine; Visit Provider Obstetrics & Gynecology
DX: O60.03 Preterm labor without delivery, third trimester (principal)
CPT/HCPCS: G0378; G0379

== ENCOUNTER 2024-07-04 05:49 | Inpatient (IN) | payer OTHER, SELFPAY ==
[2024-07-04] VITALS (162 sets, daily range): BP systolic 109–156; BP diastolic 47–100; PULSE 65–155; RESP 12–16; TEMP 36.5–37.2; O2SAT 97–100; BMI 39.3
--- NOTE | 2024-07-04 06:25 | PM.IMHP ---
H&P: HPI History of Present Illness Date/Time: 07/04/24 06:25 Chief Complaint: Elevated pressure at term Narrative: this is a 34-year-old 3 para 10/31/2002 who presents at 36 and 6 7 weeks gestation for induction of labor secondary to elevated blood pressures. She had history of a vaginal delivery followed by for abruption. Her cervix is favorable but her blood pressures have been elevated. PI labs are pending [facility] Past Medical History Medical History History of placenta previa CHERYL (juvenile idiopathic arthritis), polyarthritis, 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) Ovarian cyst Rheumatoid arthritis Ulcer Surgical History Surgical History H/O skin graft September 2021 left hand H/O: History of appendectomy Hx of tonsillectomy Hx of tubal ligation Family History Family History Mother Diabetes mellitus Grandparent Acute myocardial infarction Sibling Diabetes mellitus Breast cancer Father Heart disease Pancreatic cancer Other Family history of malignant neoplasm of breast in first degree relative Social History Social History Smoking status: Never smoker Tobacco type: e-cigarettes/vaping Second hand tobacco smoke exposure: No Alcohol intake: current Alcohol use details: Socially Substance use: never Substance use type: does not use Living arrangements: with family Spiritual care concerns: No Meds Home Medications and Allergies Home Medications Medication Instructions Recorded Confirmed Type gzascwqppyym-[id number] 1 tablet PO DAILY 10/27/23 06/27/24 History fumarate 18 mg-folic acid 400 mcg tablet (One-A-Day Women's Complete) Allergies Allergy/AdvReac Type Severity Reaction Status Date / Time amoxicillin Allergy Intermediate Hives Verified 07/03/24 10:35 Penicillins Allergy Intermediate Hives Verified 07/03/24 10:35 hydroxychloroquine Allergy Mild Rash Verified 07/03/24 10:35 Vital Signs Vital Signs - 24 hr 07/04/24 06:21 Pulse Oximetry 98 Exam Const: General: cooperative, healthy appearing and comfortable Nutritional Appearance: average body habitus Orientation/consciousness: oriented to person, oriented to place and oriented to time HENMT: Head: normal to inspection Resp: Effort & Inspection: normal respiratory effort Cardio: Rate: regular rate Rhythm: regular rhythm Heart sounds: S1 normal heart sound present and S2 normal heart sound present GI: Inspection: normal to inspection ( gravid soft uterus) : External Female Exam: normal external appearance Speculum Exam - Vagina: normal appearance of the vagina Speculum Exam - Cervix: normal appearance of the cervix ( cervix 3/50/2. Attempted AROM with minimal fluid. IUPC placed. FHTs stacy) Assessment and Plan Assessment and plan (1) Gestational hypertension: Code(s): O13.9 - Gestational [-induced] hypertension without significant proteinuria, unspecified trimester Status: Acute Assessment and Plan: medical induction of labor. Risks and benefits trial of labor after reviewed. She has an epidural candidate. Will check PIH labs
--- NOTE | 2024-07-04 06:34 | WPDANESEPP ---
Anes - Eval Pre Procedure Procedure: labor epidural Date/Time: 07/04/24 06:34 Surgeon: jd Preop Diagnosis: pain during labor Pre Op Diagnosis: IOL Patient Data Age: 34 Gender: F Height: Weight: Last Vital Signs Pulse Ox 99 07/04/24 06:31 Allergies Allergy/AdvReac Type Severity Reaction Status Date / Time amoxicillin Allergy Intermediate Hives Verified 07/03/24 10:35 Penicillins Allergy Intermediate Hives Verified 07/03/24 10:35 hydroxychloroquine Allergy Mild Rash Verified 07/03/24 10:35 Home Medications Medication Instructions Recorded Confirmed Type zliaiuirymgs-fvomdxvy-szvd 1 tablet PO DAILY 10/27/23 06/27/24 History fumarate 18 mg-folic acid 400 mcg tablet (One-A-Day Women's Complete) Patient hx anesthesia problems: none Family hx anesthesia problems: none Results Review: All pre-operative results and documents have been reviewed as part of the pre-operative evaluation. [facility] Past Medical History Medical History History of placenta previa CHERYL (juvenile idiopathic arthritis), polyarthritis, 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) Ovarian cyst Rheumatoid arthritis Ulcer Surgical History Surgical History H/O skin graft September 2021 left hand H/O: History of appendectomy Hx of tonsillectomy Hx of tubal ligation Family History Family History Mother Diabetes mellitus Grandparent Acute myocardial infarction Sibling Diabetes mellitus Breast cancer Father Heart disease Pancreatic cancer Other Family history of malignant neoplasm of breast in first degree relative Social History Social History Smoking status: Never smoker Tobacco type: e-cigarettes/vaping Second hand tobacco smoke exposure: No Alcohol intake: current Alcohol use details: Socially Substance use: never Substance use type: does not use Living arrangements: with family Spiritual care concerns: No Exam Day of Procedure 07/04/24 06:34
[2024-07-04 06:41] LABS: Basophils Percent Auto 0.2 % (0.2-1.2); Eosinophils Absolute Auto 0.1 K/mm3 (0-0.3); Eosinophils Percent Auto 0.5 % (0-4.4); Hematocrit 34.7 % (37.0-47.0); Hemoglobin 11.7 g/dL (12.0-15.0); Immature Granulocyte Absolute 0.11 K/mm3 (0.00-0.031); Immature Granulocyte Percent A 0.9 % (0-0.5); Lymphocytes Absolute Auto 2.35 K/mm3 (0.9-3.2); Lymphocytes Percent Auto 20.1 % (18.3-44.2); Mean Corpuscular HGB Conc 33.7 g/dl (32-36); Mean Platelet Volume 11.1 fl (7.4-10.4); Monocytes Absolute Auto 0.7 K/mm3 (0.1-0.6); Monocytes Percent Auto 5.7 % (2.6-8.5); Neutrophils Absolute Auto 8.5 K/mm3 (1.3-6.7); Neutrophils Percent Auto 72.6 % (45.5-73.1); Platelet Count Result 218 k/mm3 (150-375); Red Blood Count 4.18 M/mm3 (4.2-5.4); Red Cell Distribution Width 14.1 % (11.5-14.5); White Blood Count 11.7 K/mm3 (4.5-10.0)
[2024-07-04] MEDS: LACTATED RINGERS 1,000 ML 125 ML IV CONT ×2 (06:42→09:00)
[2024-07-04] MEDS: OXYTOCIN 30 UNITS/NS 500 ML 30 UNITS/500 ML BAG IV CONT (06:43)
[2024-07-04 06:52] LABS: Alanine Aminotransferase 22 U/L (6-35); Albumin Level 3.7 g/dL (3.5-5.1); Alkaline Phosphatase 137 U/L (38-126); Anion Gap 10 mmol/L (4-12); Aspartate Amino Transferase 20 U/L (14-36); Bilirubin,Total 0.4 mg/dL (0.2-1.3); Blood Urea Nitrogen 10 mg/dL (7-17); Carbon Dioxide 21 mmol/L (22-30); Chloride 102 mmol/L (98-107); Estimated Glomerular Filt Rate > 60; Glucose 89 mg/dL (65-110); Potassium 4.1 mmol/L (3.4-5.0); Sodium 133 mmol/L (137-145); Uric Acid 4.4 mg/dL (2.5-7.5)
--- NOTE | 2024-07-04 06:58 | LDADM ---
This patient, Judy Mosquera, was admitted to Labor/Delivery/Recovery 105 on 07/04/24 at 05:49. Plans for labor, pain management and were discussed with patient. Patient/family oriented to hospital policies and general routines including ID bracelet, bed and alarms, visiting hours, pain management, procedures, bathroom and other care routines, personal items, smoking policy, room service/diet and guest tray routines, security routines, and visiting hours. Patient/Family are encouraged to report perceived risks to care and to ask questions if they do not understand what they are told or what they should do. See OBIX for further documentation.
[2024-07-04 07:32] LABS: HIV 1/2 Ab P24 Ag Result Negative (Negative)
[2024-07-04 07:54] LABS: Rapid Plasma Reagin Non-Reactive (NonReactive)
--- NOTE | 2024-07-04 12:29 | PM.OBPNLAB ---
Pain Control Date/time seen: 07/04/24 12:29 Pain control: tolerating well and epidural Pelvic Exam Dilation (cm): 4 Effacement (%): 50 station: -2 Amniotic membrane status: Leaking Contractions Monitor mode: Internal Contraction frequency: 3 Contraction pattern: Regular
--- NOTE | 2024-07-04 15:06 | P.PCNOB_ITS ---
OB - Vaginal Delivery Note Procedure Delivery date: 07/04/24 Events: Gestational Hypertension Induction method: AROM Delivery augmentation: Pitocin Delivery monitor: External FHT and Internal Uterine Route of delivery: Episiotomy description: None Laceration Description: None Specimen: No Quantitative Blood Loss (ml): 61 Anesthesia type: Epidural Disposition: Floor Complications: No immediate complications Narrative: Patient was admitted for induction of labor in the early a.m.. Artificial rupture membranes performed its risks remarkable for stage of labor with epidural anesthesia placed. PIH labs were drawn were normal or blood pressure normalized with epidural she is complete she pushed delivered the head spontaneously in the KAIT position. Anterior posterior shoulder delivered spontaneously. Cord clamped to cut infant passed off the table given Apgars of IX [id number]. Cord blood was drawn. Placenta delivered intact spontaneously. Twenty of Pitocin placed in the IUD tail from the uterus. No tears or lacerations were noted upon inspection of the vagina. Mom baby doing fine at the time of dictation under blood [place] Baby Date of : 07/04/24 Time of : 14:59 Gestational Age by Date: 35 gender: Male presentation: vertex position: Right Occiput Anterior Placenta delivery description: Spontaneous Cord Vessel Description: 3 Vessels and Clamped/Cut score one minute: 9 score five minutes: 9
--- NOTE | 2024-07-04 15:08 | PM.DS ---
DS: Admitting Diagnosis Discharge Date 07/06/2024 Admitting Diagnosis gestational hypertension DS: Discharge Diagnosis Discharge Diagnosis (1) Gestational hypertension: Code(s): O13.9 - Gestational [-induced] hypertension without significant proteinuria, unspecified trimester Status: Acute DS: Summary Hospital Course Reason for hospitalization: patient was admitted on 07/04/2024 for induction of labor 36 and 6 7 weeks gestation secondary to gestational hypertension. She had a previous section. She underwent successful spontaneous vaginal delivery for successful Hospital Course: hospital course unremarkable. She remained afebrile. She was up, voiding the difficulty, eating regular diet, ambulating, and generally without complaints. Time Spent with Patient Time attestation: Total time spent providing and/or coordinating discharge services: Exam Const: General: cooperative, healthy appearing and comfortable Nutritional Appearance: average body habitus Orientation/consciousness: oriented to person, oriented to place and oriented to time Resp: Effort & Inspection: normal respiratory effort Cardio: Rate: regular rate Rhythm: regular rhythm Heart sounds: S1 normal heart sound present and S2 normal heart sound present GI: Inspection: normal to inspection ( Fundus firm below umbilicus) DS: Data Data Completed and Pending Labs on day of discharge: Labs from last 24 hours 07/04/24 07/04/24 06:33 06:33 WBC 11.7 H RBC 4.18 L Hgb 11.7 L Hct 34.7 L MCV 83.0 MCH 28.0 MCHC 33.7 RDW 14.1 Plt Count 218 MPV 11.1 H Immature Gran % (Auto) 0.9 H Neut % (Auto) 72.6 Lymph % (Auto) 20.1 [place] % (Auto) 5.7 Eos % (Auto) 0.5 Baso % (Auto) 0.2 Lymph # (Auto) 2.35 [place] # (Auto) 0.7 H Eos # (Auto) 0.1 Baso # (Auto) 0.0 Abs Immat Gran (auto) 0.11 H Absolute Neuts (auto) 8.5 H Absolute Nucleated RBC 0.000 Nucleated RBC % 0.0 Sodium 133 L Potassium 4.1 Chloride 102 Carbon Dioxide 21 L Anion Gap 10 BUN 10 Creatinine 0.50 L Estim Creat Clear Calc Not Reportable Estimated GFR > 60 Glucose 89 Uric Acid 4.4 Cancelled Calcium 9.0 Total Bilirubin 0.4 AST 20 ALT 22 Alkaline Phosphatase 137 H Total Protein 7.0 Albumin 3.7 RPR Non-reactive HIV 1&2 Ab/P24 Ag 4thGn Negative Blood Type B Positive Antibody Screen Positive Antibody Identification Anti-c Antigen Identification c Antigen - NEGATIVE SAAD, IgG Interpret Neg SAAD, Poly Interpret TNP SAAD, Complement Interp Negative Discharge Plan Discharge Attending physician on discharge: Conor Trimble Discharging Clinician: Conor Trimble Patient Disposition: Home, Self-Care Activity: may shower, no straining and pelvic rest Diet: heart healthy Wound Care Instructions: follow printed instructions Patient Instructions: Antibiotic Form Stand Alone Forms: General Discharge Information Follow-up/Referrals: Conor Trimble MD [Physician] - Discharge Medications: No Action One-A-Day Women's Complete 18 mg iron- 400 mcg Tablet 1 tablet PO DAILY Date of admission: 07/04/24 05:49 Primary Care Provider: Lm Ware Admitting Provider: Conor Trimble Attending physician on admission: Conor Trimble Condition: Stable
[2024-07-04] MEDS: OXYTOCIN 30 UNITS/NS 500 ML 30 UNITS/500 ML BAG 125 UNITS IV CONT (15:29)
[2024-07-04] MEDS: WITCH HAZEL 40 PADS 1 PAD TOPICAL (17:12)
--- NOTE | 2024-07-04 17:32 | OBPPTRN ---
Patient transferred to post room #292 via wheelchair. Support person present. Oriented to unit, room, information board, rooming in, admission packet and security measures. Patient verbalizes understanding.
[2024-07-05 03:18] VITALS: BP 128/72
[2024-07-05] MEDS: IBUPROFEN 600 MG TABLET PO (04:07)
[2024-07-05 04:58] LABS: Hematocrit 35.8 % (37.0-47.0); Hemoglobin 11.8 g/dL (12.0-15.0)
--- NOTE | 2024-07-05 06:55 | PM.OBPNVD ---
OB - PN: Subj Subjective Date/time seen: 07/05/24 06:55 Patient comments: no complaints and pain well controlled baby status: other (baby level 2) OB - PN: Obj Data Labs 07/05/24 04:52 07/04/24 06:33 Labs: Laboratory Results - last 24 hr 07/04/24 07/05/24 06:33 04:52 Hgb 11.8 L Hct 35.8 L RPR Non-reactive HIV 1&2 Ab/P24 Ag 4thGn Negative Blood Type B Positive Antibody Screen Positive Antibody Identification Anti-c Antigen Identification c Antigen - NEGATIVE SAAD, IgG Interpret Neg SAAD, Poly Interpret TNP SAAD, Complement Interp Negative Enhanced Crossmatch See Detail OB - PN A/P Plan day: 1 Plan: routine care Time Spent With Patient Time: Total time spent is greater than 50% in coordination of care (as documented) at patient's floor/unit and/or counseling patient: Time with patient: less than 15 minutes Exam Const: General: cooperative, healthy appearing and comfortable Nutritional Appearance: average body habitus Orientation/consciousness: oriented to person, oriented to place and oriented to time Resp: Effort & Inspection: normal respiratory effort Cardio: Rate: regular rate Rhythm: regular rhythm Heart sounds: S1 normal heart sound present and S2 normal heart sound present GI: Inspection: normal to inspection
--- NOTE | 2024-07-05 07:20 | PC.NURSE ---
Mother went downstairs to Level 2 nursery to feed baby
[2024-07-05 08:35] VITALS: BP 145/78; PULSE 74; RESP 16; TEMP 36.6; O2SAT 99
[2024-07-05] MEDS: MULTIVIT/MIN/PREN/FOL AC/IRON TABLET 1 TAB PO (08:58)
--- NOTE | 2024-07-05 09:28 | WPDANLDPN2 ---
Anes-Prog Note L&D Date/Time: 07/05/24 09:28 Comfortable throughout: labor and delivery Neuraxial method: epidural Epidural/Spinal procedure site: clean & non-tender Neuro status: Neuro function grossly intact. Cardiovascular status: normal Respiratory status: normal Airway patency: baseline Mental status: baseline Post-Op hydration status: normal Vital Signs: Last Vital Signs Temp 97.9 F 07/05/24 08:35 Pulse 74 07/05/24 08:35 Resp 16 07/05/24 08:35 BP 145/78 H 07/05/24 08:35 Pulse Ox 99 07/05/24 08:35 O2 Del Method Room Air 07/05/24 09:03 Pain score (VAS): 0/10 I/O: Intake & Output 07/04/24 07/05/24 07/05/24 23:59 07:59 15:59 Intake Total 600 Output Total 870 450 Balance -270 -450 Post-procedural complaints: none Patient feedback: Patient satisfied with anesthetic care.
--- NOTE | 2024-07-05 10:15 | PC.NURSE ---
Mother has decided to exclusively bottle feed with formula. No services needed at this time. Contact information updated on patients communication board if mother does have questions throughout her stay. Primary RN updated.
[2024-07-05 12:04] VITALS: BP 139/80; PULSE 87; RESP 16; TEMP 36.9; O2SAT 99
[2024-07-05 17:45] VITALS: BP 141/96; PULSE 90; RESP 18; TEMP 36.6
[2024-07-05 21:00] VITALS: BP 140/87; PULSE 93; RESP 16; TEMP 36.6; O2SAT 99
--- NOTE | 2024-07-06 07:16 | PM.OBPNVD ---
OB - PN: Subj Subjective Date/time seen: 07/06/24 07:16 Patient comments: no complaints and pain well controlled baby status: doing well OB - PN: Obj Data Labs 07/05/24 04:52 07/04/24 06:33 OB - PN A/P Plan day: 2 Plan: routine care, discharge home and follow up 6 weeks Time Spent With Patient Time: Total time spent is greater than 50% in coordination of care (as documented) at patient's floor/unit and/or counseling patient: Time with patient: less than 15 minutes Exam Const: General: cooperative, healthy appearing and comfortable Nutritional Appearance: average body habitus Orientation/consciousness: oriented to person, oriented to place and oriented to time Resp: Effort & Inspection: normal respiratory effort Cardio: Rate: regular rate Rhythm: regular rhythm Heart sounds: S1 normal heart sound present and S2 normal heart sound present GI: Inspection: normal to inspection
[2024-07-06 08:20] VITALS: BP 145/86; PULSE 88; RESP 16; TEMP 36.8; O2SAT 99
[2024-07-06] MEDS: MULTIVIT/MIN/PREN/FOL AC/IRON TABLET 1 TAB PO (10:58)
[2024-07-06 12:39] VITALS: BP 137/87; PULSE 90; RESP 16; TEMP 36.6; O2SAT 100
[2024-07-06] MEDS: TETANUS,DIPHTHERIA,AC PERTUSSIS ADULT (0.5 ML) BOOSTRIX IM (15:57)
[2024-07-06 21:30] VITALS: BP 142/88; PULSE 91; RESP 18; TEMP 36.8; O2SAT 99
[2024-07-07 00:03] VITALS: BP 138/86
[2024-07-07 09:42] VITALS: BP 151/95; PULSE 94; RESP 18; TEMP 37; O2SAT 100
== END 2024-07-06 23:50 | disposition home or self-care (01) | DRG 560 ==
LOC: ANHLDR 15:10 → ANHOB2 17:35
PROVIDERS: Admitting Provider Obstetrics & Gynecology; PCP Family Medicine Adolescent Medicine; Visit Provider Obstetrics & Gynecology
DX: O13.4 Gestational [pregnancy-induced] hypertension without significant proteinuria, complicating childbirth (principal); Z37.0 Single live birth; Z3A.36 36 weeks gestation of pregnancy; O34.211 Maternal care for low transverse scar from previous cesarean delivery
CPT/HCPCS: 36415; 80053; 84550; 85014; 85018; 85025; 86592; 86703; 86850; 86880; 86900; 86901; 86902; 86922; 90715; A9270; G0432; J2590; J2795; J7120

== ENCOUNTER 2025-01-12 09:26 | Emergency (ER) | payer OTHER, SELFPAY ==
[2025-01-12 09:32] VITALS: BP 130/75; PULSE 96; RESP 18; TEMP 36.8; O2SAT 100
--- NOTE | 2025-01-12 09:43 | ED_ITS ---
HPI - URI/Sore Throat General Chief Complaint: Upper Respiratory Infection Stated Complaint: Sinus Time Seen by Provider: 01/12/25 09:43 Source: patient Mode of arrival: ambulatory Limitations: no limitations History of Present Illness HPI Narrative: [age] female with complaint of runny nose, ear pressure, sore throat. Symptoms for For days. 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 Took a COVID test on Tuesday, when symptoms 1st started, that was negative. Chest pain or shortness of breath. Afebrile. No nausea vomiting diarrhea. Approximately 16 weeks . States she is unsure what she can take to treat her symptoms. All systems reviewed and negative except as noted above. Related Data Home Medications ?Medication ?Instructions ?Recorded ?Confirmed ?Last Taken ?Type hsgjjxxcjcgw-nyxjgfmn-xhsv 1 tablet PO DAILY 10/27/23 07/04/24 07/03/24 22:30 History fumarate 18 mg-folic acid 400 mcg tablet (One-A-Day Women's Complete) Allergies Allergy/AdvReac Type Severity Reaction Status Date / Time amoxicillin Allergy Intermediate Hives Verified 01/12/25 09:31 Penicillins Allergy Intermediate Hives Verified 01/12/25 09:31 hydroxychloroquine Allergy Mild Rash Verified 01/12/25 09:31 Review of Systems Review of Systems: CONSTITUTIONAL: Denies fever, chills, or sweats. EYES: Denies visual changes, redness, or discharge. ENT: Reports rhinorrhea, congestion, sore throat, and otalgia. CARDIOVASCULAR: Denies chest pain, palpitations, or edema. RESPIRATORY: Denies cough or dyspnea. GASTROINTESTINAL: Denies abdominal pain, nausea, vomiting, or diarrhea. GENITOURINARY: Denies dysuria or hematuria. SKIN: Denies rash or itching. MUSCULOSKELETAL: Denies back pain, joint pain, or myalgia. NEUROLOGIC: Denies headache, numbness, or weakness. PSYCHIATRIC: Denies anxiety or depression. All other systems reviewed are negative, except as documented in HPI. [facility] Past Medical History Medical History History of placenta previa CHERYL (juvenile idiopathic arthritis), polyarthritis, 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) Ovarian cyst Rheumatoid arthritis Ulcer Surgical History Surgical History H/O skin graft September 2021 left hand H/O: History of appendectomy Hx of tonsillectomy Hx of tubal ligation Family History Family History Mother Diabetes mellitus Grandparent Acute myocardial infarction Sibling Diabetes mellitus Breast cancer Father Heart disease Pancreatic cancer Other Family history of malignant neoplasm of breast in first degree relative Social History Social History Smoking status: Never smoker Tobacco type: e-cigarettes/vaping Second hand tobacco smoke exposure: No Alcohol intake: current Alcohol use details: Socially Substance use: never Substance use type: does not use Do You Feel Safe in your Home?: Yes Lack of Transportation: No Lack of Food: Never True Current Housing: I Have Housing Concerned About Future Housing: No Difficulty Paying Gas/Electric Bills: No Difficulty Paying for Meds: No Currently Unemployed: No Education: High School Diploma/GED Difficulty w/ Childcare or Family Care: No Living arrangements: with family Spiritual care concerns: No Comments At time of signature, agree with nursing past medical, surgical, social and family history. There is no relevant family history pertinent to the presenting complaint. Exam Narrative: GENERAL: This is a well-nourished, well-developed patient, in no apparent distress. HEAD: normocephalic, atraumatic. EYES: PERRL. Sclera clear/white. Vision is grossly intact. EARS: External ears normal, auditory canals clear and without drainage, TMs normal without perforation. Hearing grossly intact. NOSE: External nose normal with clear nasal drainage THROAT: Mucous membranes moist, mild erythema with postnasal drainage. No swelling or exudates. NECK: Neck supple, non-tender without lymphadenopathy, masses or thyromegaly. CARDIOVASCULAR: Regular rate and rhythm without murmurs, gallops, or rubs. RESPIRATORY: Clear to auscultation. Breath sounds equal bilaterally. No wheezes, rales, or rhonchi. SKIN: warm, Dry, intact with no suspicious lesions or rash, good texture and turgor. NEURO: awake, alert, and oriented to person, place and time. There were no obvious focal neurologic abnormalities. EXTREMITIES: No joint tenderness, effusion, or edema noted. Course Course Level of Care: Express Care Visit Vital Signs Vital signs: Vital Signs Temperature 36.8 C 01/12/25 09:32 Pulse Rate 96 01/12/25 09:32 Respiratory Rate 18 01/12/25 09:32 Blood Pressure 130/75 01/12/25 09:32 Pulse Oximetry 100 01/12/25 09:32 Oxygen Delivery Room Air 01/12/25 09:32 Temperature 36.8 C 01/12/25 09:32 Pulse Rate 96 01/12/25 09:32 Respiratory Rate 18 01/12/25 09:32 Blood Pressure 130/75 01/12/25 09:32 Pulse Oximetry 100 01/12/25 09:32 Oxygen Delivery Room Air 01/12/25 09:32 Reviewed MDM - URI/Sore Throat MDM Narrative Medical decision making narrative: negative strep, COVID and influenza test. Strep culture ordered. Recommend patient take penu-hjr-fdbzoml medications to treat viral symptoms. Well- appearing, nontoxic. Lungs clear to auscultation. Please be advised this is a medical document. It is intended for cljg-vi-pzku communication. It is written in medical language and may contain unfamiliar abbreviations or verbiage. Medical documents are intended to carry relevant information, facts as evident, and the clinical opinion of the practitioner at the time of the encounter. This report may have been done utilizing a voice recognition system. Attempts have been made to correct errors. However, there may be uncorrected grammatical, spelling, and recognition errors present. The file time of this note does not necessarily represent the time of service. Differential Diagnosis Differential diagnosis: Likely upper respiratory infection, sinusitis, viral infection, influenza and pharyngitis Lab Data Labs: Lab Results 01/12/25 Range/Units 10:08 POC Influenza A Ag Negative (Negative) POC Influenza B Ag Negative (Negative) POC SARS CoV-2 Ag Negative (Negative) POC Grp A Strep Screen Negative (Negative) Discharge Plan Discharge Clinical Impression: Acute viral sinusitis Patient Disposition: Home, Self-Care Condition: Stable Instructions: Sinusitis (ED) Additional Instructions: your COVID, influenza and strep test was negative. Your symptoms are viral and may last 10-14 days. Take jlyu-emd-xdcruwv medications to treat her symptoms such as a Flonase nasal spray and Claritin. Take as directed on packaging. Take Tylenol every 6-8 hours as needed for pain and fever. Avoid decongestants if your blood pressure has been elevated while . Drink at least 64 oz water a day. Follow-up with your doctor if symptoms are not improving. Patient Language: Belarusian Prescriptions: No Action One-A-Day Women's Complete 18 mg iron- 400 mcg Tablet 1 tablet PO DAILY Follow-up/Referrals: Lm Ware MD [Primary Care Provider] - Time of Disposition: 10:12
[2025-01-12 10:10] LABS: EDCOVIDSCREEN Negative (Negative); EDINFLUASCREEN Negative (Negative); EDINFLUBSCREEN Negative (Negative); EDSTREPNEGPOS1 Negative (Negative)
== END 2025-01-12 10:12 | disposition home or self-care (01) ==
PROVIDERS: Emergency Provider Nurse Practitioner Family; PCP Family Medicine Adolescent Medicine
DX: O99.512 Diseases of the respiratory system complicating pregnancy, second trimester (principal); Z3A.16 16 weeks gestation of pregnancy; J01.90 Acute sinusitis, unspecified; Z20.822 Contact with and (suspected) exposure to COVID-19; O99.891 Other specified diseases and conditions complicating pregnancy; M08.3 Juvenile rheumatoid polyarthritis (seronegative)
CPT/HCPCS: 87081; 87426; 87804; 87880; 99213; G0463

== ENCOUNTER 2025-05-20 17:25 | Outpatient (CLI) | payer OTHER, SELFPAY ==
[2025-05-20] VITALS (7 sets, daily range): BP systolic 125–133; BP diastolic 66–75; PULSE 70–85; RESP 16; TEMP 36.8; O2SAT 100; BMI 42.5
[2025-05-20 17:57] LABS: Hematocrit 37.0 % (37.0-47.0); Hemoglobin 12.0 g/dL (12.0-15.0); Immature Granulocyte Percent A 0.9 % (0-0.5); Lymphocytes Absolute Auto 2.29 K/mm3 (0.9-3.2); Mean Corpuscular HGB Conc 32.4 g/dl (32-36); Mean Corpuscular Hemoglobin 28.0 pg (26-34); Mean Corpuscular Volume 86.4 fl (80-100); Nucleated Red Blood Cells Absolute Auto 0.000 K/mm3 (0.0-0.012); Nucleated Red Blood Cells Perc 0.0 % (0.0-0.2); Platelet Count Result 189 k/mm3 (150-375); Red Blood Count 4.28 M/mm3 (4.2-5.4); White Blood Count 11.7 K/mm3 (4.5-10.0)
[2025-05-20 18:09] LABS: Total Protein Urine Random 16 mg/dL; Ur Ttl Prot Creatinine Ratio 0.12 mg/mg (0-0.20)
[2025-05-20 18:19] LABS: Alanine Aminotransferase 13 U/L (6-35); Albumin Level 3.2 g/dL (3.5-5.1); Alkaline Phosphatase 143 U/L (38-126); Anion Gap 6 mmol/L (4-12); Aspartate Amino Transferase 22 U/L (14-36); Bilirubin,Total 0.5 mg/dL (0.2-1.3); Blood Urea Nitrogen 12 mg/dL (7-17); Calcium 8.8 mg/dL (8.4-10.2); Carbon Dioxide 18 mmol/L (22-30); Chloride 106 mmol/L (98-107); Estimated CRCL calculation 125 ml/min; Estimated Glomerular Filt Rate > 60; Glucose 78 mg/dL (65-110); Potassium 3.6 mmol/L (3.4-5.0); Sodium 130 mmol/L (137-145); Total Protein 6.2 g/dL (6.3-8.2); Uric Acid 4.5 mg/dL (2.5-7.5)
[2025-05-20 18:36] LABS: Add Urine Microscopic? YES; Appearance Urine Cloudy (Clear); Glucose Urine UA Negative (Negative); Leukocyte Esterase Ur 3+ LEU/UL (Negative); Need Manual Microscopic Reviewed; Nitrate Urine Negative (Negative); Specific Grav Ur 1.024 (1.001-1.035)
== END 2025-05-20 19:00 | disposition home or self-care (01) ==
LOC: ANHOBOP 17:28 → ANHOBPP 17:28
PROVIDERS: PCP Family Medicine Adolescent Medicine; Visit Provider Obstetrics & Gynecology
DX: O13.9 Gestational [pregnancy-induced] hypertension without significant proteinuria, unspecified trimester (principal); Z3A.00 Weeks of gestation of pregnancy not specified
CPT/HCPCS: 36415; 59025; 80053; 81001; 82570; 84156; 84550; 85025; 99199

== ENCOUNTER 2025-05-27 07:05 | Outpatient (CLI) | payer OTHER, SELFPAY ==
[2025-05-27] VITALS (11 sets, daily range): BP systolic 129–149; BP diastolic 67–85; PULSE 62–89; BMI 41.6
[2025-05-27 07:44] LABS: Hematocrit 34.9 % (37.0-47.0); Hemoglobin 11.3 g/dL (12.0-15.0); Immature Granulocyte Percent A 0.7 % (0-0.5); Lymphocytes Absolute Auto 2.48 K/mm3 (0.9-3.2); Mean Corpuscular HGB Conc 32.4 g/dl (32-36); Mean Corpuscular Hemoglobin 27.4 pg (26-34); Mean Corpuscular Volume 84.7 fl (80-100); Nucleated Red Blood Cells Absolute Auto 0.000 K/mm3 (0.0-0.012); Nucleated Red Blood Cells Perc 0.0 % (0.0-0.2); Platelet Count Result 190 k/mm3 (150-375); Red Blood Count 4.12 M/mm3 (4.2-5.4); White Blood Count 10.8 K/mm3 (4.5-10.0)
[2025-05-27 08:05] LABS: Alanine Aminotransferase 10 U/L (6-35); Albumin Level 2.9 g/dL (3.5-5.1); Alkaline Phosphatase 151 U/L (38-126); Anion Gap 2 mmol/L (4-12); Aspartate Amino Transferase 18 U/L (14-36); Bilirubin,Total 0.4 mg/dL (0.2-1.3); Blood Urea Nitrogen 8 mg/dL (7-17); Calcium 8.7 mg/dL (8.4-10.2); Carbon Dioxide 22 mmol/L (22-30); Chloride 108 mmol/L (98-107); Estimated CRCL calculation 121 ml/min; Estimated Glomerular Filt Rate > 60; Glucose 82 mg/dL (65-110); Potassium 3.8 mmol/L (3.4-5.0); Sodium 132 mmol/L (137-145); Total Protein 6.0 g/dL (6.3-8.2); Uric Acid 4.6 mg/dL (2.5-7.5)
[2025-05-27 08:08] LABS: Add Urine Microscopic? YES; Appearance Urine Turbid (Clear); Glucose Urine UA Negative (Negative); Leukocyte Esterase Ur 3+ LEU/UL (Negative); Need Manual Microscopic Reviewed; Nitrate Urine Negative (Negative); Specific Grav Ur 1.025 (1.001-1.035)
[2025-05-27 08:09] LABS: Total Protein Urine Random 20 mg/dL; Ur Ttl Prot Creatinine Ratio 0.08 mg/mg (0-0.20)
== END 2025-05-27 09:50 | disposition home or self-care (01) ==
LOC: ANHOBOP 07:09 → ANHOBPP 07:09
PROVIDERS: PCP Family Medicine Adolescent Medicine; Visit Provider Obstetrics & Gynecology
DX: O13.9 Gestational [pregnancy-induced] hypertension without significant proteinuria, unspecified trimester (principal); Z3A.00 Weeks of gestation of pregnancy not specified
CPT/HCPCS: 36415; 59025; 80053; 81001; 82570; 84156; 84550; 85025; 99199; A9270

== ENCOUNTER 2025-05-30 13:27 | Outpatient (CLI) | payer OTHER, SELFPAY ==
[2025-05-30 14:01] VITALS: BP 128/67; PULSE 89
[2025-05-30 14:01] LABS: Hematocrit 34.2 % (37.0-47.0); Hemoglobin 11.4 g/dL (12.0-15.0); Immature Granulocyte Percent A 0.8 % (0-0.5); Lymphocytes Absolute Auto 1.86 K/mm3 (0.9-3.2); Mean Corpuscular HGB Conc 33.3 g/dl (32-36); Mean Corpuscular Hemoglobin 28.1 pg (26-34); Mean Corpuscular Volume 84.4 fl (80-100); Nucleated Red Blood Cells Absolute Auto 0.000 K/mm3 (0.0-0.012); Nucleated Red Blood Cells Perc 0.0 % (0.0-0.2); Platelet Count Result 194 k/mm3 (150-375); Red Blood Count 4.05 M/mm3 (4.2-5.4); White Blood Count 10.4 K/mm3 (4.5-10.0)
[2025-05-30 14:06] LABS: Add Urine Microscopic? YES; Appearance Urine Turbid (Clear); Glucose Urine UA Negative (Negative); Leukocyte Esterase Ur 3+ LEU/UL (Negative); Need Manual Microscopic Reviewed; Nitrate Urine Negative (Negative); Specific Grav Ur 1.028 (1.001-1.035)
[2025-05-30 14:16] VITALS: BP 129/80; PULSE 95
[2025-05-30 14:23] LABS: Alanine Aminotransferase 16 U/L (6-35); Albumin Level 3.1 g/dL (3.5-5.1); Alkaline Phosphatase 154 U/L (38-126); Anion Gap 5 mmol/L (4-12); Aspartate Amino Transferase 25 U/L (14-36); Bilirubin,Total 0.5 mg/dL (0.2-1.3); Blood Urea Nitrogen 11 mg/dL (7-17); Calcium 8.6 mg/dL (8.4-10.2); Carbon Dioxide 20 mmol/L (22-30); Chloride 106 mmol/L (98-107); Estimated Glomerular Filt Rate > 60; Glucose 124 mg/dL (65-110); Potassium 3.7 mmol/L (3.4-5.0); Sodium 131 mmol/L (137-145); Total Protein 6.1 g/dL (6.3-8.2); Uric Acid 5.3 mg/dL (2.5-7.5)
[2025-05-30 14:31] VITALS: BP 129/74; PULSE 89
[2025-05-30 14:36] VITALS: BP 129/74; PULSE 89
[2025-05-30 17:48] LABS: Total Protein Urine Random 10 mg/dL; Ur Ttl Prot Creatinine Ratio 0.04 mg/mg (0-0.20)
== END 2025-05-30 14:38 | disposition home or self-care (01) ==
LOC: ANHOBOP 13:35 → ANHLDR 13:37
PROVIDERS: PCP Family Medicine Adolescent Medicine; Visit Provider Obstetrics & Gynecology
DX: O13.9 Gestational [pregnancy-induced] hypertension without significant proteinuria, unspecified trimester (principal); Z3A.00 Weeks of gestation of pregnancy not specified
CPT/HCPCS: 36415; 59025; 80053; 81001; 82570; 84156; 84550; 85025; 99199

== ENCOUNTER 2025-06-04 05:47 | Inpatient (IN) | payer OTHER, SELFPAY ==
[2025-06-04] VITALS (228 sets, daily range): BP systolic 87–154; BP diastolic 49–113; PULSE 59–250; RESP 14–19; TEMP 36.3–37.9; O2SAT 85–100; BMI 42.3
[2025-06-04 06:50] LABS: Hematocrit 32.9 % (37.0-47.0); Hemoglobin 10.9 g/dL (12.0-15.0); Immature Granulocyte Percent A 0.9 % (0-0.5); Lymphocytes Absolute Auto 2.33 K/mm3 (0.9-3.2); Mean Corpuscular HGB Conc 33.1 g/dl (32-36); Mean Corpuscular Hemoglobin 28.1 pg (26-34); Mean Corpuscular Volume 84.8 fl (80-100); Nucleated Red Blood Cells Absolute Auto 0.000 K/mm3 (0.0-0.012); Nucleated Red Blood Cells Perc 0.0 % (0.0-0.2); Platelet Count Result 199 k/mm3 (150-375); Red Blood Count 3.88 M/mm3 (4.2-5.4); White Blood Count 10.9 K/mm3 (4.5-10.0)
--- NOTE | 2025-06-04 06:53 | P.HP_ITS ---
H&P: HPI History of Present Illness Date/Time: 06/04/25 06:53 Chief Complaint: Gestational hypertension Narrative: This is a 35-year-old 4 para 3 with last menstrual period of August, of 06/25/2025, confirmed by 7 week ultrasound presents at 37 weeks gestation for induction of labor secondary to elevated blood pressures. She had a vaginal delivery followed by followed by successful vaginal after . She opts for again and risks and benefits were once again reviewed her diabetic test was normal and she is negative for group B strep her cervix is 3-4 cm unfavorable. [facility] labs are pending Review of Systems Review of Systems: CONSTITUTIONAL: Denies fever, chills, or sweats. EYES: Denies visual changes, redness, or discharge. ENT: Reports rhinorrhea, congestion, sore throat, and otalgia. CARDIOVASCULAR: Denies chest pain, palpitations, or edema. RESPIRATORY: Denies cough or dyspnea. GASTROINTESTINAL: Denies abdominal pain, nausea, vomiting, or diarrhea. GENITOURINARY: Denies dysuria or hematuria. SKIN: Denies rash or itching. MUSCULOSKELETAL: Denies back pain, joint pain, or myalgia. NEUROLOGIC: Denies headache, numbness, or weakness. PSYCHIATRIC: Denies anxiety or depression. All other systems reviewed are negative, except as documented in HPI. [facility] Past Medical History Medical History (Updated 06/04/25 @ 06:57 by Conor Lira MD) History of placenta previa CHERYL (juvenile idiopathic arthritis), polyarthritis, 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) Rheumatoid arthritis Ovarian cyst Ulcer Surgical History Surgical History (Updated 06/04/25 @ 06:57 by Conor Lira MD) Hx of tubal ligation H/O skin graft September 2021 left hand H/O: History of appendectomy Hx of tonsillectomy Family History Family History Mother Diabetes mellitus Grandparent Acute myocardial infarction Sibling Diabetes mellitus Breast cancer Father Heart disease Pancreatic cancer Other Family history of malignant neoplasm of breast in first degree relative Social History Social History Smoking status: Never smoker Tobacco type: e-cigarettes/vaping Second hand tobacco smoke exposure: No Alcohol intake: current Alcohol use details: Socially Substance use: never Substance use type: does not use Do You Feel Safe in your Home?: Yes Lack of Transportation: No Lack of Food: Never True Current Housing: I Have Housing Concerned About Future Housing: No Difficulty Paying Gas/Electric Bills: No Difficulty Paying for Meds: No Currently Unemployed: No Education: High School Diploma/GED Difficulty w/ Childcare or Family Care: No Living arrangements: with family Spiritual care concerns: No Meds Home Medications and Allergies Home Medications ?Medication ?Instructions ?Recorded ?Confirmed ?Type udwmhwpslkah-oyqoezgb-rwrt 1 tablet PO DAILY 10/27/23 05/27/25 History fumarate 18 mg-folic acid 400 mcg tablet (One-A-Day Women's Complete) Allergies Allergy/AdvReac Type Severity Reaction Status Date / Time amoxicillin Allergy Intermediate Hives Verified 05/27/25 07:52 Penicillins Allergy Intermediate Hives Verified 05/27/25 07:52 hydroxychloroquine Allergy Mild Rash Verified 05/27/25 07:52 Vital Signs Vital Signs - 24 hr 06/04/25 06:18 06/04/25 06:19 Pulse Rate 90 Blood Pressure 132/87 Pulse Oximetry 98 Exam Const: General: cooperative, healthy appearing and comfortable Nutritional Appearance: overweight Orientation/consciousness: oriented to person, oriented to place and oriented to time HENMT: Head: normal to inspection Resp: Effort & Inspection: normal respiratory effort Cardio: Rate: regular rate Rhythm: regular rhythm Heart sounds: S1 normal heart sound present and S2 normal heart sound present GI: Inspection: normal to inspection (Gravid soft uterus) : Speculum Exam - Vagina: normal appearance of the vagina Speculum Exam - Cervix: normal appearance of the cervix (Cervix 3-4 cm/80%/-1. AROM clear. FHT is reassuring. IUPC placed) H&P: Results Labs Labs: Short CBC 06/04/25 Range/Units 06:19 WBC 10.9 H (4.5-10.0) K/mm3 Hgb 10.9 L (12.0-15.0) g/dL Hct 32.9 L (37.0-47.0) % Plt Count 199 (150-375) k/mm3 Assessment and Plan Assessment and plan (1) Gestational hypertension: Code(s): O13.9 - Gestational [-induced] hypertension without significant proteinuria, unspecified trimester Status: Acute (2) Term : Code(s): Z34.90 - Encounter for supervision of normal , unspecified, unspecified trimester Status: Acute Plan Medical induction of labor. Spontaneous vaginal delivery is expected. Risks of trial of labor after reviewed again. She is an epidural candidate
--- NOTE | 2025-06-04 07:02 | LDADM ---
This patient, Judy Mosquera, was admitted to Labor/Delivery/Recovery 102 on 06/04/25 at 05:47. Plans for labor, pain management and were discussed with patient. Patient/family oriented to hospital policies and general routines including ID bracelet, bed and alarms, visiting hours, pain management, procedures, bathroom and other care routines, personal items, smoking policy, room service/diet and guest tray routines, security routines, and visiting hours. Patient/Family are encouraged to report perceived risks to care and to ask questions if they do not understand what they are told or what they should do. See OBIX for further documentation.
[2025-06-04 07:11] LABS: Uric Acid 4.8 mg/dL (2.5-7.5)
[2025-06-04 07:12] LABS: Alanine Aminotransferase 14 U/L (6-35); Albumin Level 3.0 g/dL (3.5-5.1); Alkaline Phosphatase 143 U/L (38-126); Anion Gap 5 mmol/L (4-12); Aspartate Amino Transferase 24 U/L (14-36); Bilirubin,Total 0.5 mg/dL (0.2-1.3); Blood Urea Nitrogen 10 mg/dL (7-17); Calcium 9.0 mg/dL (8.4-10.2); Carbon Dioxide 21 mmol/L (22-30); Chloride 108 mmol/L (98-107); Estimated CRCL calculation 128 ml/min; Estimated Glomerular Filt Rate > 60; Glucose 87 mg/dL (65-110); Potassium 3.9 mmol/L (3.4-5.0); Sodium 134 mmol/L (137-145); Total Protein 6.0 g/dL (6.3-8.2)
[2025-06-04] MEDS: LACTATED RINGERS 1,000 ML 125 ML IV CONT ×3 (07:12→19:41)
[2025-06-04 07:28] LABS: Syphilis IgG/IgM Antibody Non-Reactive (Nonreactive)
[2025-06-04] MEDS: OXYTOCIN 30 UNITS/NS 500 ML 30 UNITS/500 ML BAG IV CONT (07:38)
--- NOTE | 2025-06-04 09:52 | P.PNAN_ITS ---
Anes - Initial Pre Proc Eval Procedure: labor epidural Date/Time: 06/04/25 09:52 Surgeon: Conor Lira MD Pre Op Diagnosis: labor pain Pre Op Diagnosis: IOL Patient Data Age: 35 Gender: F Height: 1.55 m Weight: 101.5 kg Last Vital Signs Temp 36.9 C 06/04/25 09:20 Pulse 94 06/04/25 09:46 BP 110/66 06/04/25 09:46 Pulse Ox 99 06/04/25 09:47 O2 Del Method Room Air 06/04/25 06:58 Allergies Allergy/AdvReac Type Severity Reaction Status Date / Time amoxicillin Allergy Intermediate Hives Verified 05/27/25 07:52 hydroxychloroquine Allergy Mild Rash Verified 05/27/25 07:52 Home Medications ?Medication ?Instructions ?Recorded ?Confirmed ?Type ucagqprtelkd-euubjyog-kcff 1 tablet PO DAILY 10/27/23 05/27/25 History fumarate 18 mg-folic acid 400 mcg tablet (One-A-Day Women's Complete) Laboratory Tests 06/04/25 06:19 WBC 10.9 H K/mm3 (4.5-10.0) RBC 3.88 L M/mm3 (4.2-5.4) Hgb 10.9 L g/dL (12.0-15.0) Hct 32.9 L % (37.0-47.0) MCV 84.8 fl (80-100) MCH 28.1 pg (26-34) MCHC 33.1 g/dl (32-36) RDW 15.0 H % (11.5-14.5) Plt Count 199 k/mm3 (150-375) MPV 11.1 H fl (7.4-10.4) Immature Gran % (Auto) 0.9 H % (0-0.5) Neut % (Auto) 70.5 % (45.5-73.1) Lymph % (Auto) 21.5 % (18.3-44.2) [place] % (Auto) 6.3 % (2.6-8.5) Eos % (Auto) 0.6 % (0-4.4) Baso % (Auto) 0.2 % (0.2-1.2) Lymph # (Auto) 2.33 K/mm3 (0.9-3.2) [place] # (Auto) 0.7 H K/mm3 (0.1-0.6) Eos # (Auto) 0.1 K/mm3 (0-0.3) Baso # (Auto) 0.0 K/mm3 (0.0-0.1) Abs Immat Gran (auto) 0.10 H K/mm3 (0.00-0.031) Absolute Neuts (auto) 7.7 H K/mm3 (1.3-6.7) Absolute Nucleated RBC 0.000 K/mm3 (0.0-0.012) Nucleated RBC % 0.0 % (0.0-0.2) Sodium 134 L mmol/L (137-145) Potassium 3.9 mmol/L (3.4-5.0) Chloride 108 H mmol/L (98-107) Carbon Dioxide 21 L mmol/L (22-30) Anion Gap 5 mmol/L (4-12) BUN 10 mg/dL (7-17) Creatinine 0.56 L mg/dL (0.7-1.0) Estim Creat Clear Calc 128 ml/min Estimated GFR > 60 (59 - ) Glucose 87 mg/dL (65-110) Uric Acid 4.8 mg/dL (2.5-7.5) Calcium 9.0 mg/dL (8.4-10.2) Total Bilirubin 0.5 mg/dL (0.2-1.3) AST 24 U/L (14-36) ALT 14 U/L (6-35) Alkaline Phosphatase 143 H U/L (38-126) Total Protein 6.0 L g/dL (6.3-8.2) Albumin 3.0 L g/dL (3.5-5.1) Syphilis IgG/IgM Ab Non-reactive (Nonreactive) Blood Type B Positive Antibody Screen Positive Antibody Identification Anti-c Antigen Identification Not Reportable SAAD, IgG Interpret Not Performed SAAD, Poly Interpret Negative SAAD, Complement Interp Not Performed Enhanced Crossmatch See Detail Patient hx anesthesia problems: none Family hx anesthesia problems: none Results Review: All pre-operative results and documents have been reviewed as part of the pre- operative evaluation. [facility] Past Medical History Medical History (Updated 06/04/25 @ 06:57 by Conor Lira MD) History of placenta previa CHERYL (juvenile idiopathic arthritis), polyarthritis, 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) Rheumatoid arthritis Ovarian cyst Ulcer Surgical History Surgical History (Updated 06/04/25 @ 06:57 by Conor Lira MD) Hx of tubal ligation H/O skin graft September 2021 left hand H/O: History of appendectomy Hx of tonsillectomy Family History Family History Mother Diabetes mellitus Grandparent Acute myocardial infarction Sibling Diabetes mellitus Breast cancer Father Heart disease Pancreatic cancer Other Family history of malignant neoplasm of breast in first degree relative Social History Social History Smoking status: Never smoker Tobacco type: e-cigarettes/vaping Second hand tobacco smoke exposure: No Alcohol intake: current Alcohol use details: Socially Substance use: never Substance use type: does not use Do You Feel Safe in your Home?: Yes Lack of Transportation: No Lack of Food: Never True Current Housing: I Have Housing Concerned About Future Housing: No Difficulty Paying Gas/Electric Bills: No Difficulty Paying for Meds: No Currently Unemployed: No Education: High School Diploma/GED Difficulty w/ Childcare or Family Care: No Living arrangements: with family Spiritual care concerns: No Anes - Eval Final PreProcedure Day of Procedure 06/04/25 09:52 Patient weight: morbidly obese ASA classification: III Anesthetic plan: proceed Anesthesia type and monitoring: regional epidural and standard monitoring Results Review: All pre-operative results and documents have been reviewed as part of the pre- operative evaluation. Informed Consent: The patient's anesthetic plan and its attendant risks and benefits were discussed with the patient/family/POA. Questions were solicited and answers provided to the satisfaction of the patient/family/POA.
--- NOTE | 2025-06-04 11:38 | PM.OBPNLAB ---
Pain Control Date/time seen: 06/04/25 11:38 Pain control: tolerating well and epidural Pelvic Exam Dilation (cm): 6 Effacement (%): 70 station: -2 Amniotic membrane status: Leaking Contractions Monitor mode: Internal
[2025-06-04] MEDS: SODIUM CHLORIDE 0.9% IV 300 ML 600 ML I-UTERINE (14:03)
[2025-06-04] MEDS: SODIUM CHLORIDE 0.9% IV 1,000 ML 100 ML I-UTERINE (14:03)
--- NOTE | 2025-06-04 16:20 | PM.OBPNLAB ---
Pain Control Date/time seen: 06/04/25 16:20 Pain control: tolerating well and epidural Pelvic Exam Dilation (cm): 7 Effacement (%): 80 station: -2 Amniotic membrane status: Leaking Contractions Monitor mode: Internal
[2025-06-04] MEDS: ONDANSETRON INJ 4 MG/2 ML VIAL IV PUSH (18:24)
[2025-06-04] MEDS: FAMOTIDINE 20 MG/2 ML VIAL IV PUSH (18:29)
[2025-06-04] MEDS: AZITHROMYCIN IV 500 MG in SODIUM CHLORIDE 0.9% IV 250 ML IVPB (18:36)
[2025-06-04] MEDS: ceFAZolin 2 GM in SODIUM CHLORIDE 0.9% IV 50 ML 100 ML IVPB (18:36)
--- NOTE | 2025-06-04 18:38 | WPDHPUPDATE1 ---
History and Physical Update Update Date/Time: 06/04/25 18:38 History and Physical has been reviewed, including an updated exam of the patient. There are NO changes in the patient's condition. Risks, benefits, and alternatives have been discussed and questions answered. Patient agrees to proceed with procedure. 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 Patient opts for low-transverse section repeat risks and benefits reviewed
--- NOTE | 2025-06-04 19:25 | W.PM.OBCSD ---
OB - Delivery Note Procedure Delivery date: 06/04/25 Pre-op diagnosis: Arrest of Decent and Gestational Hypertension Post-op Diagnosis: Same Induction method: AROM Delivery augmentation: Pitocin Delivery monitor: External FHT, External Uterine and Internal Uterine Prior to decision for section, ACOG/SMFM labor guidelines were considered and discussed with the patient and staff. Decision made to proceed with the section.: Yes Procedure Performed: Repeat Surgeon: Conor Lira MD Anesthesia type: Epidural Description of Procedure/Findings: Was admitted for induction of labor in the a.m. secondary to elevated blood pressures. Artificial rupture membranes performed she progressed through a very slow 1st stage of labor had intrauterine pressure catheter placed and despite adequate contractions did not make adequate progress and variable decelerations were present and she did previous section she was offered repeat and agreed after risks and benefits reviewed Patient was prepped draped in normal sterile fashion placed in the supine position. Under excellent epidural anesthesia the abdomen was entered in Pfannenstiel fashion progressive layers to the fascia. Fascia incised midline cure number out fashion bilaterally. Underlying muscles sharply dissected. Parietal peritoneum male by Judy clamps. This was elevated carried superiorly and inferiorly dome of the bladder. Bladder blade placed. Bladder blade returned after a bladder flap was formed. Low-transverse incision made the occiput delivered in the KAIT position anterior posterior shoulder delivered spontaneously after leaving the the Cordarone occiput infant passed off the table given Apgars of 8 [id number]. Cord blood was drawn. Placenta delivered intact manually. Uterus delivered on the abdomen wrapped in moist towel. After assuring no membranes or debris remained in the uterus, the uterus closed continuous running locking 0 Vicryl from lateral edge to lateral edge. This followed by 2nd imbricating running locking 0 Vicryl from lateral edge to lateral edge. Hemostasis was assured. The ovaries and tubes appeared within normal limits and uterus returned to the abdomen. The hysterotomy incision inspected 1 last time noted be hemostatic the raw surface areas sprinkled with [place] term. Laps removed and accounted for the fascia closed with continuous running 0 Vicryl from lateral edge to lateral edge. Irrigation subcutaneous layer and skin closed 4 Monocryl glue QBL was 665. All sponge, needle, instrument counts were correct. There were no immediate complications. Mom baby doing fine at the time of dictation. Specimen: No Estimated Blood Loss: 665 Drains: No Packing: No Pathology: None sent Complications: No immediate complications Condition: Stable Disposition: PACU Baby Date of : 06/04/25 Time of : 19:02 Gestational Age by Date: 37 Infant gender: Female presentation: vertex position: Right Occiput Anterior Placenta delivery description: Spontaneous Cord Vessel Description: 3 Vessels, Nuchal Cord and Loose score one minute: 8 score five minutes: 9
--- NOTE | 2025-06-04 19:30 | P.DS_ITS ---
DS: Admitting Diagnosis Discharge Date 06/06/2025 Admitting Diagnosis Term /gestational hypertension/previous section DS: Discharge Diagnosis Discharge Diagnosis (1) H/O: : Code(s): Z98.891 - History of uterine scar from previous surgery Status: Acute (2) Term : Code(s): Z34.90 - Encounter for supervision of normal , unspecified, unspecified trimester Status: Acute (3) Gestational hypertension: Code(s): O13.9 - Gestational [-induced] hypertension without significant proteinuria, unspecified trimester Status: Acute DS: Summary Hospital Course Reason for hospitalization: Patient was admitted for induction of labor 37 weeks gestation secondary to elevated blood pressures. She failed to progress and got to 6-7 cm had a baby that did not tolerate labor and underwent low-transverse section Hospital Course: Patient's hospital course unremarkable. She remained afebrile. She was up, voiding without difficulty, eating regular diet, ambulating, generally without complaints. Time Spent with Patient Time attestation: Total time spent providing and/or coordinating discharge services: Exam Const: General: cooperative, healthy appearing, comfortable and overweight Orientation/consciousness: oriented to person, oriented to place and oriented to time HENMT: Head: normal to inspection Resp: Effort & Inspection: normal respiratory effort Cardio: Rate: regular rate Rhythm: regular rhythm Heart sounds: S1 normal heart sound present and S2 normal heart sound present GI: Inspection: normal to inspection and incision (Wound clean dry and intact) DS: Data Data Completed and Pending Labs on day of discharge: Labs from last 24 hours 06/04/25 06:19 WBC 10.9 H RBC 3.88 L Hgb 10.9 L Hct 32.9 L MCV 84.8 MCH 28.1 MCHC 33.1 RDW 15.0 H Plt Count 199 MPV 11.1 H Immature Gran % (Auto) 0.9 H Neut % (Auto) 70.5 Lymph % (Auto) 21.5 [place] % (Auto) 6.3 Eos % (Auto) 0.6 Baso % (Auto) 0.2 Lymph # (Auto) 2.33 [place] # (Auto) 0.7 H Eos # (Auto) 0.1 Baso # (Auto) 0.0 Abs Immat Gran (auto) 0.10 H Absolute Neuts (auto) 7.7 H Absolute Nucleated RBC 0.000 Nucleated RBC % 0.0 Sodium 134 L Potassium 3.9 Chloride 108 H Carbon Dioxide 21 L Anion Gap 5 BUN 10 Creatinine 0.56 L Estim Creat Clear Calc 128 Estimated GFR > 60 Glucose 87 Uric Acid 4.8 Calcium 9.0 Total Bilirubin 0.5 AST 24 ALT 14 Alkaline Phosphatase 143 H Total Protein 6.0 L Albumin 3.0 L Syphilis IgG/IgM Ab Non-reactive Blood Type B Positive Antibody Screen Positive Antibody Identification Anti-c Antigen Identification Not Reportable SAAD, IgG Interpret Not Performed SAAD, Poly Interpret Negative SAAD, Complement Interp Not Performed Enhanced Crossmatch See Detail Discharge Plan Discharge Attending physician on discharge: Conor Trimble Discharging Clinician: Conor Trimble Patient Disposition: Home Activity: may shower, no straining and pelvic rest Diet: heart healthy Wound Care Instructions: follow printed instructions Patient Instructions: Antibiotic Form Patient Language: Latvian Stand Alone Forms: General Discharge Information Follow-up/Referrals: Conor Trimble MD [Physician] - Discharge Medications: New hydrocodone-acetaminophen 5-325 mg tablet 1 tablet PO Q4H PRN (Reason: pain) Qty: 20 0RF Continued One-A-Day Women's Complete 18 mg iron- 400 mcg Tablet 1 tablet PO DAILY Date of admission: 06/04/25 05:47 Primary Care Provider: Lm Ware Admitting Provider: Conor Trimble Attending physician on admission: Conor Trimble Condition: Stable
[2025-06-04] MEDS: OXYTOCIN 30 UNITS/NS 500 ML 30 UNITS/500 ML BAG 125 UNITS IV CONT (20:20)
[2025-06-05] VITALS (7 sets, daily range): BP systolic 126–146; BP diastolic 57–84; PULSE 82–99; RESP 14–18; TEMP 36.5–38.1; O2SAT 96–100
[2025-06-05] MEDS: KETOROLAC 15 MG/ML VIAL (*BKC) IV PUSH ×3 (00:23→12:46)
[2025-06-05] MEDS: ACETAMINOPHEN 500 MG TABLET 1000 MG PO ×4 (00:23→18:35)
[2025-06-05] MEDS: DEXTROSE 5%/0.45% SOD CHL 1,000 ML 125 ML IV CONT (01:04)
--- NOTE | 2025-06-05 07:07 | PM.OBPNVD ---
OB - PN: Subj Subjective Date/time seen: 06/05/25 07:07 Patient comments: no complaints, pain well controlled, tolerating diet and flatus present [place] baby status: doing well OB - PN: Obj Data Labs 06/04/25 06:19 06/04/25 06:19 Labs: Laboratory Results - last 24 hr 06/04/25 06:19 Sodium 134 L Potassium 3.9 Chloride 108 H Carbon Dioxide 21 L Anion Gap 5 BUN 10 Creatinine 0.56 L Estim Creat Clear Calc 128 Estimated GFR > 60 Glucose 87 Uric Acid 4.8 Calcium 9.0 Total Bilirubin 0.5 AST 24 ALT 14 Alkaline Phosphatase 143 H Total Protein 6.0 L Albumin 3.0 L Syphilis IgG/IgM Ab Non-reactive Blood Type B Positive Antibody Screen Positive Antibody Identification Anti-c Antigen Identification Not Reportable SAAD, IgG Interpret Not Performed SAAD, Poly Interpret Negative SAAD, Complement Interp Not Performed Enhanced Crossmatch See Detail OB - PN A/P Assessment and Plan (1) H/O: : Code(s): Z98.891 - History of uterine scar from previous surgery Status: Acute (2) Term : Code(s): Z34.90 - Encounter for supervision of normal , unspecified, unspecified trimester Status: Acute (3) Gestational hypertension: Code(s): O13.9 - Gestational [-induced] hypertension without significant proteinuria, unspecified trimester Status: Acute Plan routine care Time Spent With Patient Time: Total time spent is greater than 50% in coordination of care (as documented) at patient's floor/unit and/or counseling patient: Review of Systems Review of Systems: CONSTITUTIONAL: Denies fever, chills, or sweats. EYES: Denies visual changes, redness, or discharge. ENT: Reports rhinorrhea, congestion, sore throat, and otalgia. CARDIOVASCULAR: Denies chest pain, palpitations, or edema. RESPIRATORY: Denies cough or dyspnea. GASTROINTESTINAL: Denies abdominal pain, nausea, vomiting, or diarrhea. GENITOURINARY: Denies dysuria or hematuria. SKIN: Denies rash or itching. MUSCULOSKELETAL: Denies back pain, joint pain, or myalgia. NEUROLOGIC: Denies headache, numbness, or weakness. PSYCHIATRIC: Denies anxiety or depression. All other systems reviewed are negative, except as documented in HPI. Exam Const: General: cooperative, healthy appearing, comfortable and overweight Orientation/consciousness: oriented to person, oriented to place and oriented to time HENMT: Head: normal to inspection Resp: Effort & Inspection: normal respiratory effort Cardio: Rate: regular rate Rhythm: regular rhythm Heart sounds: S1 normal heart sound present and S2 normal heart sound present GI: Inspection: normal to inspection and incision (Wound clean dry and intact)
--- NOTE | 2025-06-05 08:01 | WPDANLDPN2 ---
Anes-Prog Note L&D Date/Time: 06/05/25 08:01 Neuro status: Neuro function grossly intact. Cardiovascular status: normal Respiratory status: normal Airway patency: baseline Mental status: baseline Post-Op hydration status: normal Vital Signs: Last Vital Signs Temp 36.8 C 06/05/25 04:30 Pulse 89 06/05/25 04:30 Resp 14 06/05/25 04:30 BP 129/84 06/05/25 04:30 Pulse Ox 100 06/05/25 04:30 O2 Del Method Room Air 06/04/25 23:53 FiO2 21 06/04/25 23:53 Pain score (VAS): 0 I/O: Intake & Output 06/04/25 06/05/25 06/05/25 23:59 07:59 15:59 Intake Total 400 Output Total 940 600 Balance -940 -200 Post-procedural complaints: none Patient feedback: Patient satisfied with anesthetic care.
--- NOTE | 2025-06-05 08:02 | WPDANLDNPN2 ---
Anes-Prog Note L&D-Neuraxial Date/Time: 06/05/25 08:02 Patient feedback: Patient satisfied with post-operative pain management.
[2025-06-05 09:22] LABS: Hematocrit 32.1 % (37.0-47.0); Hemoglobin 10.5 g/dL (12.0-15.0); Immature Granulocyte Percent A 0.3 % (0-0.5); Lymphocytes Absolute Auto 1.14 K/mm3 (0.9-3.2); Mean Corpuscular HGB Conc 32.7 g/dl (32-36); Mean Corpuscular Hemoglobin 27.7 pg (26-34); Mean Corpuscular Volume 84.7 fl (80-100); Nucleated Red Blood Cells Absolute Auto 0.000 K/mm3 (0.0-0.012); Nucleated Red Blood Cells Perc 0.0 % (0.0-0.2); Platelet Count Result 156 k/mm3 (150-375); Red Blood Count 3.79 M/mm3 (4.2-5.4); White Blood Count 15.1 K/mm3 (4.5-10.0)
[2025-06-05] MEDS: DOCUSATE SODIUM 100 MG CAPSULE PO ×2 (09:38→17:44)
[2025-06-05] MEDS: SIMETHICONE 80 MG TAB.CHEW PO ×4 (09:38→18:35)
[2025-06-05] MEDS: MULTIVIT/MIN/PREN/FOL AC/IRON TABLET 1 TAB PO (09:38)
[2025-06-05] MEDS: IBUPROFEN 600 MG TABLET PO (18:35)
[2025-06-05] MEDS: LIDOCAINE 5% PATCH 1 PATCH TRANSDERM (21:13)
[2025-06-06 00:19] VITALS: BP 137/77; PULSE 92; RESP 19; TEMP 36.4; O2SAT 98
[2025-06-06] MEDS: ACETAMINOPHEN 500 MG TABLET 1000 MG PO ×4 (00:25→20:08)
[2025-06-06] MEDS: IBUPROFEN 600 MG TABLET PO ×4 (00:27→20:09)
--- NOTE | 2025-06-06 05:53 | P.PNOB_ITS ---
OB - PN: Subj Subjective Date/time seen: 06/06/25 05:53 Patient comments: no complaints, pain well controlled, tolerating diet and flatus present [place] baby status: doing well OB - PN: Obj Data Labs 06/05/25 09:16 06/04/25 06:19 Labs: Laboratory Results - last 24 hr 06/05/25 09:16 WBC 15.1 H RBC 3.79 L Hgb 10.5 L Hct 32.1 L MCV 84.7 MCH 27.7 MCHC 32.7 RDW 15.3 H Plt Count 156 MPV 10.7 H Immature Gran % (Auto) 0.3 Neut % (Auto) 88.6 H Lymph % (Auto) 7.5 L [place] % (Auto) 3.4 Eos % (Auto) 0.0 Baso % (Auto) 0.2 Lymph # (Auto) 1.14 [place] # (Auto) 0.5 Eos # (Auto) 0.0 Baso # (Auto) 0.0 Abs Immat Gran (auto) 0.04 H Absolute Neuts (auto) 13.4 H Absolute Nucleated RBC 0.000 Nucleated RBC % 0.0 OB - PN A/P Assessment and Plan (1) H/O: : Code(s): Z98.891 - History of uterine scar from previous surgery Status: Acute (2) Term : Code(s): Z34.90 - Encounter for supervision of normal , unspecified, unspecified trimester Status: Acute Time Spent With Patient Time: Total time spent is greater than 50% in coordination of care (as documented) at patient's floor/unit and/or counseling patient: Review of Systems 2 Review of Systems: CONSTITUTIONAL: Denies fever, chills, or sweats. EYES: Denies visual changes, redness, or discharge. ENT: Reports rhinorrhea, congestion, sore throat, and otalgia. CARDIOVASCULAR: Denies chest pain, palpitations, or edema. RESPIRATORY: Denies cough or dyspnea. GASTROINTESTINAL: Denies abdominal pain, nausea, vomiting, or diarrhea. GENITOURINARY: Denies dysuria or hematuria. SKIN: Denies rash or itching. MUSCULOSKELETAL: Denies back pain, joint pain, or myalgia. NEUROLOGIC: Denies headache, numbness, or weakness. PSYCHIATRIC: Denies anxiety or depression. All other systems reviewed are negative, except as documented in HPI. Exam 2 Const: General: cooperative, healthy appearing, comfortable and overweight Orientation/consciousness: oriented to person, oriented to place and oriented to time HENMT: Head: normal to inspection Resp: Effort & Inspection: normal respiratory effort Cardio: Rate: regular rate Rhythm: regular rhythm Heart sounds: S1 normal heart sound present and S2 normal heart sound present GI: Inspection: normal to inspection and incision (Wound clean dry and intact)
[2025-06-06] MEDS: SIMETHICONE 80 MG TAB.CHEW PO ×3 (07:25→15:55)
[2025-06-06] MEDS: DOCUSATE SODIUM 100 MG CAPSULE PO ×2 (07:25→15:55)
[2025-06-06 08:10] VITALS: BP 139/82; PULSE 93; RESP 16; TEMP 37.2; O2SAT 100
[2025-06-06] MEDS: oxyCODONE HCL (*CRX) 5 MG TAB IR 10 MG PO (09:45)
[2025-06-06 19:42] VITALS: BP 145/84; PULSE 87; RESP 19; TEMP 36.3; O2SAT 100
[2025-06-07] MEDS: IBUPROFEN 600 MG TABLET PO ×2 (02:00→08:02)
[2025-06-07] MEDS: ACETAMINOPHEN 500 MG TABLET 1000 MG PO ×2 (02:00→08:02)
[2025-06-07 08:00] VITALS: PULSE 85; RESP 16; O2SAT 100
[2025-06-07] MEDS: DOCUSATE SODIUM 100 MG CAPSULE PO (08:01)
[2025-06-07] MEDS: SIMETHICONE 80 MG TAB.CHEW PO (08:02)
[2025-06-07] MEDS: FUROSEMIDE 20 MG TABLET PO (08:03)
[2025-06-07 08:25] VITALS: BP 148/90; PULSE 85; RESP 16; TEMP 36.6; O2SAT 100
== END 2025-06-07 11:06 | disposition home or self-care (01) | DRG 540 ==
LOC: ANHLDR 18:44 → ANHOB2 23:33
PROVIDERS: Admitting Provider Obstetrics & Gynecology; PCP Family Medicine Adolescent Medicine; Visit Provider Obstetrics & Gynecology
PROC: 10D00Z1 Extraction of Products of Conception, Low, Open Approach (ICD-10-PCS; CPT 59514; principal; 2025-06-04 18:30)
DX: O13.4 Gestational [pregnancy-induced] hypertension without significant proteinuria, complicating childbirth (principal); Z37.0 Single live birth; Z3A.37 37 weeks gestation of pregnancy; O34.211 Maternal care for low transverse scar from previous cesarean delivery; O62.1 Secondary uterine inertia; O69.81X0 Labor and delivery complicated by cord around neck, without compression, not applicable or unspecified
CPT/HCPCS: 36415; 80053; 84550; 85025; 86593; 86850; 86880; 86900; 86901; 86902; 86922; J0690; A9270; J0456; J1171; J1200; J1885; J2004; J2274; J2405; J2590; J2795; J3010; J7030; J7050; J7120

== ENCOUNTER 2025-08-22 02:27 | Day surgery (SDC) | payer OTHER, SELFPAY ==
--- NOTE | 2025-08-13 16:45 | PC.NURSE ---
[facility] has started construction of its new state of the art ER which will open Spring 2026. With this, we anticipate parking may be a challenge for some our surgical patients and families. Parking spaces are limited but are available for all Surgical, obstetrics, and ER patients sharing this lot. If you arrive and find you are having a hard time finding a parking space, please note that we understand the challenges, please drive around the hospital and park near Hospital Entrance 1. When you enter this entrance, you can ask a volunteer to direct or take you back to the surgical waiting area to check in. We appreciate everyone?s understanding of these expected challenges while we build for your future. Report to the Outpatient Waiting Room, entrance under the green pavilion located off [address], at time on date . Planned Procedure Time: .? Time changes happen often and if your time is changed the preop area will call you the afternoon before. - You and your visitor will be asked to self-screen and do not enter if you have any COVID symptoms. Please call surgeon if you need to reschedule. - A mask is optional within the hospital at this time. Patients may have clear liquids (water, carbonated beverages, clear teas, apple juice) until 3 hours prior to surgery with a maximum of 20 ounces. (STOP AT 4:30AM) - No food from midnight until time of surgery and no smoking, or chewing tobacco (or any form of nicotine). No chewing gum, candy or mints. - Take only the following medications with a SIP of water on the morning of surgery: n/a DO NOT STOP ANY OF YOUR OTHER PRESCRIPTION MEDICATIONS PRIOR TO SURGERY EXCEPT THE FOLLOWING Hold all vitamins and supplements for 3 days per anesthesiologist. Please no make-up, nail citizen of [place], hairspray, perfume, deodorant, or body powder the day of surgery.? No jewelry (including any body piercings) or valuables the day of surgery, leave them at home.? Please take a shower or bath the night before, or the morning of, surgery with an antibacterial soap.? Wear comfortable, loose fitting clothing.? - Jewelry must be removed prior to entering the operating room.? Rings and piercings that are not removed may be cut off. - The hospital will not accept responsibility for valuables.? - Please leave all valuables, including medications, at home the day of surgery. If you are going home after surgery, a licensed delivery driver must drive you home.? - NO public transportation without another adult if you receive anesthesia. - We recommend that an adult stay with you for 24 hours following discharge. - We also recommend that you do not drive, make important decision, drink alcoholic beverages, or take any drugs that were not prescribed by your health care provider for at least 24 hours after your discharge time. Follow any additional instructions given to you from your surgeon. Telephone instructions given to ___patient/Judy and asked if any additional questions and then verbalized understanding. Patient advised to call surgeon office or pre surgery nurse liaison [phone] if any additional questions.
[2025-08-13 16:49] VITALS: BMI 38.0
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
[2025-08-22] VITALS (9 sets, daily range): BP systolic 124–139; BP diastolic 59–91; PULSE 77–100; RESP 15–19; TEMP 36.4–36.8; O2SAT 98–100
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
--- OUTSIDE RECORDS SUMMARY | 2025-08-22 02:30 | XMS_ITS | Data Portability ---
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 Patient will come back in a year unless there are new symptoms. [email or web address] Not available 12/19/2023 14:58:30 02/16/2024 02/16/2024 Patient is ___weeks . Discussed plan. [email or web address] Not available 02/16/2024 17:47:05 Plan of Treatment Reminders Order Date Submit Date Provider Last Modified By Organization Details Last Modified Time Details Appointments None recorded. Lab drug screen, urine 2023 024 [email or web address] 1 [address], [address], [place], [address], 4 17:21:10 culture, urine 2023 024 [facility] (Lab), [address], [place], [address], 4 07:20:43 test, urine 2023 024 [email or web address] 1 [place], [address], [place], [address], 4 15:06:56 Referral None recorded. Procedures None recorded. Surgeries None recorded. Imaging US, obstetric, nuchal translucenc y 2023 024 [email or web address] 8 [place], [address], [place], [address], 4 08:46:16 Medication Orders None recorded. Patient TargetsNo targets recorded. Patient InstructionsNo instructions recorded. Reason for Referral None Reported. Results Created Date Observation Date Name Description Value Unit Range Abnormal Flag Note LastModifiedBy Organization Detail LastModifiedTime 12/19/19 24 12/19/2023 IMAGE GUIDE D PAP AND HPV REGAR DLESS image guided Pap, HPV regardless of Pap result SEE RESULT S BELOW CASE REPOR T: Cytol ogy Gynec ologi randy Repor t Case: [id number] Autho derrick bonita Provi alcides: Imani Donahue MD Colle cted: 12/19 1653 Order ing Locat ion: [place] [facility] Recei liset: 12/20 0927 First Scree n: Mya Tillman Rescr een: Kady Mccann ret, CT Speci men: Scree di Pap - Image d, Cervi x STATE MENT OF ADEQU ACY: Satis facto ry for evalu ation Trans forma tion zone compo nent prese nt FINAL DIAGN OSIS: Negat genaro for Intra epith elial Lesio n or Jennifer magdaleno (NIL) . Funga l organ isms morph ologi harrison consi stent with Marta da spp. Elect jamar manuel eduardo d by Kady Mccann ret, CT on 2023 at 9:27 AM ----- ----- ----- ----- ----- ----- ----- ----- ----- ----- ----- ----- ----- ----- ----- ----- ----- ---- HPV RESUL TS: HPV mRNA E6/E7 : No HPV mRNA Detec radha NOTE: This high risk HPV mRNA assay detec ts fourt een high- risk HPV types (16, 18, 31, 33, 35, 39, 45, 51, 52, 56, 58, 59, 66, 68) witho ut diffe renti ation . COMME NT: This speci men was revie wed by a Cytot echno logis t and/o r Patho logis t (as indic ated in this repor t) after evalu ation using the Thinp rep Imagi ng Syste m. CLINI RANDY INFOR MATIO N: Menst rual Statu s: LMP (if appli cable ): Clini randy Histo ry/Pr eviou s Pap: Type of Neopl philomena (if appli cable ): Signi fican t Clini randy Findi ngs: Other Histo ry: Hormo tish (if appli cable ): PAP EDUCA RAMANA L NOTE: The Pap Test is a scree di test with an inher ent false negat genaro rate. Liqui d-bas ed sampl ing may decre ase, but will not elimi naima, false negat genaro resul ts. A negat genaro resul t does not precl ude the prese nce and/o r devel opmen t of disea se, since the prese nce of abnor mal cells in the sampl e depen ds on the locat ion of the lesio n and sampl ing techn ique. Jf nued regul ar scree di is the best metho d of cance r preve ntion . If repor radha cytol ogic findi ng do not corre late with physi randy and/o r histo rical findi ngs, furth er inves tigat ion is recom wilman d, as clini harrison gonzalez nted. Not Available [facility] (Lab) [address], [place], [address], 12/23/2023 10:31:02 12/19/19 24 12/19/2023 TRICH OMONA S VAGIN RENA (RRNA ) trichomonas vaginalis ribosomal RNA (rrna) Negati ve negati ve Not Available [facility] (Lab) [address], [place], [address], 12/23/2023 10:31:03 12/19/19 24 12/19/2023 CT/GC (ACE) , THINP REP VIAL chlamydia trachomatis, PCR Negati ve negati ve Not Available [facility] (Lab) [address], [place], [address], 12/23/2023 10:31:04 12/19/19 24 12/19/2023 CT/GC (ACE) , THINP REP VIAL neisseria gonorrhoeae, PCR Negati ve negati ve Not Available [facility] (Lab) [address], [place], [address], 12/23/2023 10:31:04 12/19/19 24 12/19/2023 pregn danny test, urine HCG positi ve Not Available [address], [place], [address], 12/19/2023 15:06:37 01/19/20 24 01/19/2024 CBC W/DIF F WBC 10.4 10'3/ uL 3.5-10 .5 Not Available [facility] (Lab) [address], [place], [address], 01/20/2024 12:24:35 01/19/20 24 01/19/2024 CBC W/DIF F RBC 4.29 10'6/ uL (based on docume nted legal sex) 3.80-5 .20 Not Available [facility] (Lab) [address], [place], [address], 01/20/2024 12:24:35 01/19/20 24 01/19/2024 CBC W/DIF F HGB 12.3 g/dL (based on docume nted legal sex) 11.6-1 5.4 Not Available [facility] (Lab) [address], [place], [address], 01/20/2024 12:24:35 01/19/20 24 01/19/2024 CBC W/DIF F HCT 37.0 % (based on docume nted legal sex) 34.0-4 5.0 Not Available [facility] (Lab) [address], [place], [address], 01/20/2024 12:24:35 01/19/20 24 01/19/2024 CBC W/DIF F MCV 86.2 fL 80.0-9 9.0 Not Available [facility] (Lab) [address], [place], [address], 01/20/2024 12:24:35 01/19/20 24 01/19/2024 CBC W/DIF F MCH 28.7 pg 27.0-3 4.0 Not Available [facility] (Lab) [address], [place], [address], 01/20/2024 12:24:35 01/19/20 24 01/19/2024 CBC W/DIF F MCHC 33.2 g/dL 32.0-3 5.5 Not Available [facility] (Lab) [address], [place], [address], 01/20/2024 12:24:35 01/19/20 24 01/19/2024 CBC W/DIF F RDW 12.0 % 11.0-1 5.0 Not Available [facility] (Lab) [address], [place], [address], 01/20/2024 12:24:35 01/19/20 24 01/19/2024 CBC W/DIF F plt 259 10'3/ uL 150-40 0 Not Available [facility] (Lab) [address], [place], [address], 01/20/2024 12:24:35 01/19/20 24 01/19/2024 CBC W/DIF F MPV 11.3 fL 8.8-12 .1 Not Available [facility] (Lab) [address], [place], [address], 01/20/2024 12:24:35 01/19/20 24 01/19/2024 CBC W/DIF F NRBC's 0.0 % 0.0 Not Available [facility] (Lab) [address], [place], [address], 01/20/2024 12:24:35 01/19/20 24 01/19/2024 CBC W/DIF F absolute NRBCs 0.0 10'3/ uL 0.0 Not Available [facility] (Lab) [address], [place], [address], 01/20/2024 12:24:35 01/19/20 24 01/19/2024 CBC W/DIF F neutrophils 71.7 % 34.0-7 3.0 Not Available [facility] (Lab) [address], [place], [address], 01/20/2024 12:24:35 01/19/20 24 01/19/2024 CBC W/DIF F lymphocytes 21.2 % 15.0-5 0.0 Not Available [facility] (Lab) [address], [place], [address], 01/20/2024 12:24:35 01/19/20 24 01/19/2024 CBC W/DIF F monocytes 5.7 % 1.0-15 .0 Not Available [facility] (Lab) [address], [place], [address], 01/20/2024 12:24:35 01/19/20 24 01/19/2024 CBC W/DIF F eosinophils 0.6 % 0.0-8. 0 Not Available [facility] (Lab) [address], [place], [address], 01/20/2024 12:24:35 01/19/20 24 01/19/2024 CBC W/DIF F basophils 0.4 % 0.0-2. 0 Not Available [facility] (Lab) [address], [place], [address], 01/20/2024 12:24:35 01/19/20 24 01/19/2024 CBC W/DIF F immature granulocytes 0.4 % no define d refere nce range Not Available [facility] (Lab) [address], [place], [address], 01/20/2024 12:24:35 01/19/20 24 01/19/2024 CBC W/DIF F absolute neutrophils 7.5 10'3/ uL 1.5-8. 0 Not Available [facility] (Lab) [address], [place], [address], 01/20/2024 12:24:35 01/19/20 24 01/19/2024 CBC W/DIF F absolute lymphocytes 2.2 10'3/ uL 1.0-4. 0 Not Available [facility] (Lab) [address], [place], [address], 01/20/2024 12:24:35 01/19/20 24 01/19/2024 CBC W/DIF F absolute monocytes 0.6 10'3/ uL 0.2-1. 0 Not Available [facility] (Lab) [address], [place], [address], 01/20/2024 12:24:35 01/19/20 24 01/19/2024 CBC W/DIF F absolute eosinophils 0.1 10'3/ uL 0.0-0. 6 Not Available [facility] (Lab) [address], [place], [address], 01/20/2024 12:24:35 01/19/20 24 01/19/2024 CBC W/DIF F absolute basophils 0.0 10'3/ uL 0.0-0. 3 Not Available [facility] (Lab) [address], [place], [address], 01/20/2024 12:24:35 01/19/20 24 01/19/2024 CBC W/DIF F absolute immature granulocytes 0.0 10'3/ uL 0.00-0 .10 2023 3:56 AM: P indic ates parti al resul ts on a panel have been relea sed. Addit ional resul ts will follo w. 2023 3:56 AM: This resul t has been final verif ied. No addit ional or negron ed resul ts are expec radha. Not Available [facility] (Lab) [address] [place], [address], 01/20/2024 12:24:35 01/19/20 24 01/19/2024 HIV 1/2 ANTIG EN/AN TIBOD Y, REFLE X CONFI RMATI ON HIV antigen/anti body Nonrea ctive nonrea ctive HIV-1 antig en and HIV-1 /HIV- 2 antib odies were not detec radha. No labor atory evide nce of HIV infec tion. Not Available [facility] (Lab) [address], [place], [address], 01/20/2024 12:24:36 01/19/20 24 01/19/2024 HEPAT ITIS B SURFA CE ANTIG EN hepatitis B surface antigen Non-re active non-re active This assay was perfo rmed using [employer] ratio n reage nts and test kits. Value s obtai merari with other assay metho ds or kits canno t be used inter negron eably . Not Available [facility] (Lab) [address], [place], [address], 01/20/2024 12:24:36 01/19/20 24 01/19/2024 HEPAT ITIS C ANTIB CARLOS SCREE N, REFLE X TO CONFI RMATI ON hepatitis C antibody Non-re active non-re active Antib odies to HCV Not Detec radha, does not exclu de the possi bilit y of expos ure to HCV. Not Available [facility] (Lab) [address], [place], [address], 01/20/2024 12:24:37 01/19/20 24 01/19/2024 RUBEL LA IGG ANTIB CARLOS, QUANT rubella antibodies, IgG Reacti ve reacti ve Not Available [facility] (Lab) [address], [place], [address], 01/20/2024 12:24:37 01/19/20 24 01/19/2024 RUBEL LA IGG ANTIB CARLOS, QUANT rubella antibodies, IgG quant 15.3 IU/mL >=10 Non-r eacti ve (Non- Immun e) <10 IU/mL React genaro (Immu ne) > or = 10 IU/mL Not Available [facility] (Lab) [address], [place], [address], 01/20/2024 12:24:37 01/19/20 24 01/19/2024 HEMOG LOBIN A1C hemoglobin A1C 4.9 % 0-5.6 The Ameri can [employer] ber[employer] iatio n recom mends that a prima ry goal of thera py dante d be a HBA1C of < 7% and that physi cians shoul d reeva luate the treat ment regim en in patie nts with HBA1C value s consi stent ly > 8%. <5.7% Rosa l 5.7 - 6.4% Incre ased risk for diabe bertha >=6.5 % Diagn ostic of diabe bertha <7.0% Goal of thera py >8.0% Actio n sugge sted Not Available [facility] (Lab) [address], [place], [address], 01/20/2024 12:24:38 01/19/20 24 01/19/2024 TYPE/ RH/SC REEN ABO/Rh type B POS Not Available [facility] (Lab) [address], [place], [address], 01/20/2024 12:24:38 01/19/20 24 01/19/2024 TYPE/ RH/SC REEN antibody screen NEG Not Available [facility] (Lab) [address], [place], [address], 01/20/2024 12:24:38 01/19/20 24 01/19/2024 TYPE/ RH/SC REEN exp date 2023 23:59 Not Available [facility] (Lab) [address], [place], [address], 01/20/2024 12:24:38 01/19/20 24 01/19/2024 RPR SCREE N, REFLE X TITER /CONF IRMAT ION RPR screen Nonrea ctive nonrea ctive Not Available [facility] (Lab) [address], [place], [address], 01/20/2024 12:24:39 01/19/20 24 01/19/2024 CULTU RE: URINE result report SEE RESULT S BELOW Test: Cultu re: Urine Speci men Sourc e: Urine Voide d Speci men Type: Urine Speci men Date: 2023 5:03 PM Resul t Date: 2023 6:17 AM Resul t Statu s: Final resul t Abnor mal: No Resul ting Lab: [facility] [address] [facility] [address] Tel: CULTU RE ----- ----- ----- --- No growt h in 1 day (dete ction level of 10,00 0 colon ies / ml.) Not Available [facility] (Lab) [address], [place], [address], 01/21/2024 07:20:43 01/19/20 24 01/19/2024 drug scree n, urine Amphetamines : negati ve Not Available [place] [address], [place], [address], 01/19/2024 17:20:21 01/19/20 24 01/19/2024 drug scree n, urine Cannabinoids : negati ve Not Available [place] [address], [place], [address], 01/19/2024 17:20:21 01/19/20 24 01/19/2024 drug scree n, urine Cocaine: negati ve Not Available [place] [address], [place], [address], 01/19/2024 17:20:21 01/19/20 24 01/19/2024 drug scree n, urine Opiates: negati ve Not Available [place] [address], [place], [address], 01/19/2024 17:20:21 01/19/20 24 01/19/2024 drug scree n, urine Phenocyclidi ne: negati ve Not Available [place] [address], [place], [address], 01/19/2024 17:20:21 01/19/20 24 01/19/2024 drug scree n, urine Barbiturates : negati ve Not Available [place] [address], [place], [address], 01/19/2024 17:20:21 01/19/20 24 01/19/2024 drug scree n, urine Benzodiazepi tish: negati ve Not Available [place] [address], [place], [address], 01/19/2024 17:20:21 01/19/20 24 01/19/2024 drug scree n, urine Ethanol: negati ve Not Available [place] [address], [place], [address], 01/19/2024 17:20:21 01/19/20 24 01/19/2024 drug scree n, urine Hallucinogen s: negati ve Not Available [place] [address], [place], [address], 01/19/2024 17:20:21 01/19/20 24 01/19/2024 drug scree n, urine Inhalants: negati ve Not Available [place] [address], [place], [address], 01/19/2024 17:20:21 01/19/20 24 01/19/2024 drug scree n, urine Anabolic Steroids: negati ve Not Available [place] [address], [place], [address], 01/19/2024 17:20:21 01/19/20 24 01/19/2024 drug scree n, urine Other: negati ve Not Available [place] [address], [place], [address], 01/19/2024 17:20:21 12/19/19 24 12/19/2023 US, obste tric, follo w-up No observ ation record ed. [email or web address] [facility] [address], [place], [address], 12/20/2023 11:23:45 01/19/20 24 01/19/2024 US, obste tric, nucha l trans lucen cy No observ ation record ed. [email or web address] [address], [place], [address], 01/19/2024 22:35:17 01/19/20 24 01/20/2024 US, obste tric, nucha l trans lucen cy No observ ation record ed. [email or web address] [place] [address], [place], [address], 01/20/2024 17:48:18 02/15/20 24 02/15/2024 US, obste tric, follo w-up No observ ation record ed. [email or web address] [facility] [address], [place], [address], 02/16/2024 10:16:32 02/15/20 24 02/15/2024 US, obste tric, follo w-up No observ ation record ed. [email or web address] [facility] [place] [address] [place], [address], 02/16/2024 10:16:46 02/15/20 24 02/15/2024 US, obste tric, follo w-up No observ ation record ed. [facility] [address], [address], 02/16/2024 15:01:21 02/15/20 24 02/15/2024 US, obste tric, follo w-up No observ ation record ed. [facility] [address], [address], 02/16/2024 10:17:16 02/15/20 24 02/15/2024 US, obste tric, follo w-up No observ ation record ed. [email or web address] [facility] [address], [address], 02/17/2024 10:23:54 Result Notes None recorded. Problems Name Problem SNOMED Code Status Onset Date Resolution Date Notes Provider Name and Address Organization Details Recorded Time Prematur e delivery 357251302 Completed 26 week - son is very good , no deficit Amada dawn, [facility] 4 10:53:08 Pregnanc y test positive [id number] Completed 201101/29/2021 Pregnanc y examinat ion or test, positive result;R ecorded Elsewher e: No Locat ion: [facility] S ource: [employer]: N Practi ce ID: 0001 Ariel lable Time: 08:30:00 AM Buffy dawn, [facility] 1 10:09:09 Speciali zed medical examinat ion Completed 201101/29/2021 Gynecolo gical Examinat ion;Sawyer rded Elsewher e: No Locat ion: [facility] S ource: [employer]: N Practi ce ID: 0001 Ariel lable Time: 08:30:00 AM Buffy dawn, [facility] 1 10:09:23 Routine antenata l care Completed 201101/29/2021 Supervis ion of other normal pregnanc y;Record ed Elsewher e: No Locat ion: [facility] S ource: [employer]: N Practi ce ID: 0001 Ariel lable Time: 12:00:00 PM Buffy dawn, [facility] 1 10:09:10 anatomy study Completed 201101/29/2021 PENDING SALE TO [facility] SURVEY;R ecorded Elsewher e: No Locat ion: [facility] S ource: [employer]: N Practi ce ID: 0001 Ariel lable Time: 11:15:00 AM Buffy dawn [facility] 1 10:08:44 Placenta l abruptio n - delivere d [id number] Completed 201101/29/2021 Prematur e separati on of placenta , with delivery ;Practic e ID: 0001 Buffy dawn [facility] 10:08:59 Single live from singleto n pregnanc y [id number] Completed 201101/29/2021 Mother with single liveborn ;Practic e ID: 0001 Buffy dawn, [facility] 10:09:14 Postoper ative follow-u p visit Completed 201101/29/2021 Follow-u p examinat ion, followin g other surgery; Practice ID: 0001 Buffy dawn [facility] 1 10:09:02 Depressi ve disorder [id number] Completed 201101/29/2021 Depressi on;Recor ded Elsewher e: No [facility]at [facility]: [employer]: N Practi ce ID: 0001 Ariel lable Time: 12:30:00 PM Buffy dawn [facility] 1 10:08:35 Postpart um care Completed 201101/29/2021 Routine postpart um follow-u p;Record ed Elsewher e: No [facility] S ource: [employer]: N Practi ce ID: 0001 Ariel lable Time: 12:30:00 PM Buffy Bradford [facility], [facility] 1 10:09:05 Implanta tion of subcutan eous contrace ptive Completed 201101/29/2021 Insertio n of implanta ble subderma l contrace ptive;Re corded Elsewher e: No Locat ion: [facility] S ource: [employer]: N Practi ce ID: 0001 Ariel lable Time: 03:15:00 PM Buffy dawn [facility] 1 10:08:53 Ill-defi merari intestin al infectio n Completed 201201/29/2021 No Show Fee;Prac jessica ID: 0001 Buffy dawn, [facility] [address] 10:08:[address] Concept Completed 201401/29/2021 Encntr for general adult medical exam w/o abnormal findings ;Recorde d Elsewher e: No Locat ion: [facility] S ource: [employer]: N Practi ce ID: 0001 Ariel lable Time: 10:00:00 AM Buffy dawn [facility] 1 10:09:18 Screenin g for malignan t neoplasm of cervix Completed 201401/29/2021 Encounte r for screenin g for malignan t neoplasm of cervix;R ecorded Elsewher e: No Locat ion: [facility] S ource: [employer]: N Earnestine ce ID: 0001 Ariel lable Time: 10:00:00 AM Buffy dawn, [facility] 1 10:09:13 Pregnanc y test negative [id number] Completed 201401/29/2021 Encounte r for pregnanc y test, result negative ;Recorde d Elsewher e: No Locat ion: [facility] S ource: [employer]: N Kassieti ce ID: 0001 Ariel lable Time: 12:00:00 PM Buffy Bradford [facility], [facility] 1 10:09:[address] Concept Completed 201401/29/2021 Encounte r for surveill ance of other contrace ptives;P ractice ID: 0001 Buffy Bradford [facility], [facility] 1 10:09:21 Pelvic and perineal pain [id number] Completed 201701/29/2021 Pelvic pain;Rec orded Elsewher e: No Locat ion: [facility] Nazanin Fernandoti ce ID: 0001 Ariel lable Time: 04:15:00 PM Buffy Bradford [facility] 1 10:08:57 Cyst of ovary Completed 201701/29/2021 Ovarian cyst;Rec orded Elsewher e: No Locat ion: [facility] S ource: [employer]: N Kassieti ce ID: 0001 Ariel lable Time: 04:15:00 PM Buffy Bradford [facility] 1 10:08:20 Procedur e by method Completed 201701/29/2021 Encounte r for family planning advice NOS;Sawyer rded Elsewher e: No Locat ion: [facility] S ource: [employer]: N Kassieti ce ID: 0001 Ariel lable Time: 10:15:00 AM Buffy dawn [facility] 10:08:39 Lesion of ovary Completed 201701/29/2021 Other ovarian cyst, left side;Rec orded Elsewher e: No Locat ion: [facility] S ource: [employer]: N Kassieti ce ID: 0001 Ariel lable Time: 09:45:00 AM Buffy Bradford [facility] 10:08:[address] Concept Completed 201701/29/2021 Encntr for business transformation consultant exam (general ) (routine ) w/o abn findings ;Recorde d Elsewher e: No Locat ion: [facility] N Kassieti ce ID: 0001 Ariel lable Time: 03:00:00 PM Buffy Avilatz [facility] 10:09:19 Contrace ption care manageme nt Completed 201801/29/2021 Encounte r for contrace ptive manageme nt, unspecif ied;Sawyer rded Elsewher e: No Locat ion: [facility] S ource: [employer]: N Kassieti ce ID: 0001 Ariel lable Time: 01:30:00 PM Buffy Avilatz [facility] 10:08:04 Eruption [id number] Completed 201801/29/2021 Rash;Rec orded Elsewher e: No [facility] S ource: [employer]: N Kassieti ce ID: 0001 Ariel lable Time: 03:30:00 PM Buffy Bradford [facility] 10:08:42 Steriliz ation procedur e Completed 201801/29/2021 Encounte r for steriliz ation;Re corded Elsewher e: No Locat ion: Parris bello [facility] S ource: [employer] [employer] hiro: N [place] ce ID: [id number] Ariel lable Time: 02:00:00 PM Buffy Bradford [facility] 1 10:09:30 labor with delivery [id number] Active 202308/28/20 12 26wks Buffy Bradford [facility] 4 15:01:33 Lupus erythema tosus [id number] Active 2023 no meds, MFM consult and US at 20 weeks - referral sent 01/19 [facility] Am[facility] Wiggins [facility] 4 10:53:08 Mixed anxiety and depressi ve disorder [id number] Active 2023 Buffy Bradford [facility] 4 15:02:01 Lupus erythema tosus [id number] Completed 2023 no meds, MFM consult and US at 20 weeks - referral sent 01/19 [facility]igg[facility] 4 10:53:08 Pregnanc y [id number] Completed 202307/16/2024 Amada Wiggins [facility] 4 13:56:18 Problem Notes None recorded. Procedures Surgical History Date Name Laterality Status Provider Name and Address Organization Details Recorded Time 12/19/19 24 Date of Last Pap Smear completed Buffy Bradford [facility] 01/19/2024 17:16:30 06/08/20 23 Nexplanon Removal completed SYLVIE Marquis [address], [place], [address], [place] [facility] 06/08/2023 12:51:00 04/27/20 23 Nexplanon Insert completed SYLVIE Marquis [address], [place], [address], [facility] 04/27/2023 15:00:22 02/26/20 23 reversal of female sterilization completed Buffy Bradford [facility] 12/19/2023 15:04:13 10/23/20 21 grafting to skin of extremity completed SYLVIE Richards- [address], [place], [address], [facility] 03/31/2022 16:51:08 07/18/20 19 Tubal Ligation completed Buffy Bradford [facility] 01/29/2021 10:50:09 10/31/19 15 Appendectomy completed Buffy Bradford [facility] 01/29/2021 10:49:47 08/28/20 12 section completed Buffy Bradford [facility] 01/29/2021 10:50:26 10/31/18 94 Tonsillectomy completed Buffy Bradford [facility] 01/29/2021 10:49:59 Imaging Results None recorded. Procedure Notes None recorded. Medical Equipment None Reported. Allergies Allergen ID Allergen Name Allergen Category Reaction Reaction Severity Criticality Documentation Date Start Date Code Code System Note Provider Name and Address Organization Details Recorded Time 46844 amoxicill in medicatio n hives Not available Not available 10/17/2020 723 RxNorm React ion: hives ; Comme nt: [facility]at [facility]; Not Available [facility] 0 14:20:28 97414 hydroxych loroquine medicatio n Not available Not available Not available 01/29/2021 5521 RxNorm Buffy dawn [facility] 1 10:45:17 Medications Name Sig Start Date Stop Date Status Note LastModified by Organization Details LastModified Time cyclobenz aprine 10 mg tablet TAKE 1 TABLET BY MOUTH TWICE DAILY FOR 7 DAYS NEEDED 10/12 completed Not Available Not Available Not Available doxycycli ne hyclate 100 mg capsule 03/31 completed Not Available Not Available Not Available azithromy rodney 250 mg tablet TAKE DIRECTED 12/19 completed Not Available Not Available Not Available fluconazo le 150 mg tablet take 1 tablet (150MG) by oral route once 12/19 completed Not Available Not Available Not Available hydrocodo ne 5 mg-acetam inophen 325 mg tablet TAKE 1 TABLET BY MOUTH EVERY 4 HOURS NEEDED 12/19 completed Not Available Not Available Not Available Doc-Q-Lac e 100 mg capsule take 1 capsule by oral route 2 times every day 09/05 completed Prescrib ed Elsewher e: Yes Loca tion: [facility] M odify By: [email or web address] trick En counter DateTime : 09/06/20 12 03:45:00 PM Not Available Not Available Not Available ciproflox acin 500 mg tablet TAKE 1 TABLET BY MOUTH EVERY 12 HOURS 10/12 completed Not Available Not Available Not Available sulfameth oxazole 800 mg-trimet hoprim 160 mg tablet TAKE 1 TABLET BY MOUTH EVERY 12 HOURS 03/31 completed Not Available Not Available Not Available ondansetr on 8 mg disintegr ating tablet Place 1 tablet twice a day by translin gual route. 03/31 completed Not Available Not Available Not Available ferrous sulfate ER 250 mg capsule,e xtended release 09/05 completed Prescrib ed Elsewher e: Yes Loca tion: [facility] M odify By: [email or web address] trick En counter DateTime : 09/06/20 12 03:45:00 PM Not Available Not Available Not Available oxycodone -acetamin ophen 5 mg-325 mg tablet 03/31 completed Not Available Not Available Not Available ofloxacin 0.3 % ear drops INSTILL 10 DROPPERF UL TO RIGHT EAR EVERY 24 HOURS FOR 7 DAYS 12/19 completed Not Available Not Available Not Available ibuprofen 100 mg tablet take 2 tablet by oral route every 4 - 6 hours as needed with food 10/02 completed Prescrib ed Elsewher e: Yes Loca tion: [facility] odify By: [email or web address] trick En counter DateTime : 09/06/20 12 03:45:00 PM Not Available Not Available Not Available pantopraz ole 40 mg tablet,de layed release TAKE 1 TABLET BY MOUTH TWICE DAILY 10/12 completed Not Available Not Available Not Available gabapenti n 100 mg capsule 03/31 completed Not Available Not Available Not Available ergocalci ferol (vitamin D2) 1,250 mcg (50,000 unit) capsule TAKE 1 CAPSULE BY MOUTH EVERY WEEK 04/06 completed Not Available Not Available Not Available ibuprofen 600 mg tablet TAKE 1 TABLET BY MOUTH THREE TIMES DAILY NEEDED FOR PAIN 10/12 completed Not Available Not Available Not Available Zoloft 25 mg tablet take 1 tablet (25MG) by oral route every day 09/05 completed Prescrib ed Elsewher e: No Locat ion: [facility] odify By: [email or web address] trick En counter DateTime : 10/02/20 12 12:30:00 PM Not Available Not Available Not Available ondansetr on 4 mg disintegr ating tablet Place 2 tablets twice a day by translin gual route as needed for 5 days. 07/21 completed Not Available Not Available Not Available cefdinir 300 mg capsule TAKE 1 CAPSULE BY MOUTH EVERY 12 HOURS FOR 10 DAYS 12/19 completed Not Available Not Available Not Available naproxen 500 mg tablet TAKE 1 TABLET BY MOUTH TWICE DAILY FOR 7 DAYS NEEDED FOR PAIN 10/12 completed Not Available Not Available Not Available oxycodone 5 mg tablet 03/31 completed Not Available Not Available Not Available bupropion HCl XL 150 mg 24 hr tablet, extended release TAKE 1 TABLET BY MOUTH DAILY FOR 7 DAYS, IF TOLERATI NG INCREASE TO 2 TABLETS DAILY AND FOLLOW UP IN 6 TO 8 WEEKS 12/23 completed Not Available Not Available Not Available omeprazol e 12/23 completed Not Available Not Available Not Available cholecalc iferol (vitamin D3) 1,250 mcg (50,000 unit) capsule TAKE ONE CAPSULE BY MOUTH EVERY WEEK 10/12 completed Not Available Not Available Not Available hydrocodo ne 2.5 mg-ibupro fen 200 mg tablet take 1 tablet by oral route every 6 hours 10/02 completed Prescrib ed Elsewher e: Yes Loca tion: [facility] odify By: [email or web address] trick En counter DateTime : 09/06/20 12 03:45:00 PM Not Available Not Available Not Available Nexplanon 68 mg subdermal implant insert 1 device 07/21 completed Not Available Not Available Not Available 28 mg iron-800 mcg tablet 09/05 completed Prescrib ed Elsewher e: Yes Loca tion: [facility] odify By: [email or web address] trick En counter DateTime : 09/06/20 12 03:45:00 PM Not Available Not Available Not Available Xulane 150 mcg-35 mcg/24 hr transderm al patch apply 1 patch by transder mal route every week 07/11 completed Prescrib ed Elsewher e: No Locat ion: [facility] odify By: [email or web address] Juan Francisco myles DateTime : 11/15/19 01:30:00 PM Not Available Not Available Not Available Slynd 4 mg (28) tablet TAKE 1 TABLET BY MOUTH EVERY DAY 07/21 completed Not Available Not Available Not Available Vyleesi 1.75 mg/0.3 mL subcutane ous auto-inje ctor Inject subcutan iously as needed at least 45 minutes before anticipa radha sexual activity . No more than 1 dose per 24 hours and not more than 8 doses per month. 03/31 completed Not Available Not Available Not Available Vitals Date Recorded Body height Body mass index (BMI) Body weight Systolic And Diastolic Provider Name and Address Organization Details Last Updated DateTime 12/19/2023 154.94 cm 36.1 kg/m2 38466.14 g 132/88 mm[Hg] Buffy Bradford [place] [facility] 12/19/2023 15:00:25 Date Recorded Body height Body mass index (BMI) Body weight Systolic And Diastolic Provider Name and Address Organization Details Last Updated DateTime 01/19/2024 154.94 cm 36.8 kg/m2 23015.512 15 g 118/87 mm[Hg] Buffy Bradford [facility] 01/19/2024 17:16:15 Date Recorded Body height Body mass index (BMI) Body weight Systolic And Diastolic Provider Name and Address Organization Details Last Updated DateTime 02/16/2024 154.94 cm 37 kg/m2 42040.104 52 g 135/83 mm[Hg] Buffy Bradford [facility] 02/16/2024 17:47:27 Social History Question Answer Notes LastModified by Organizat ion Details LastModified Time Tobacco Smoking Status Never Smoker Anais Sunshine lópez, [facility] 07/25/2023 10:18:12 If You Are , What Was Your Level Of Alcohol Consumption Prior To ? Occasional [email or web address] Information not available 12/19/2023 Are You Blind Or Do You Have Difficulty Seeing? No [email or web address] Information n ot available 01/29/2021 What Is Your Level Of Caffeine Consumption? Occasional [email or web address] Information not available 01/29/2021 In The 14 Days Before Symptom Onset, Have You Had Close Contact With A Laboratory-confirm ed COVID-19 While That Case Was Ill? No [email or web address] Information n ot available 01/29/2021 In The 14 Days Before Symptom Onset, Have You Had Close Contact With A Person Who Is Under Investigation For COVID-19 While That Person Was Ill? No [email or web address] Information not available 01/29/2021 Have You Been To An Area Known To Be High Risk For COVID-19? No [email or web address] Information not available 01/29/2021 Are You Deaf Or Do You Have Serious Difficulty Hearing? No [email or web address] Information not available 01/29/2021 What Type Of Diet Are You Following? REGULAR [email or web address] Information n ot available 01/29/2021 How Many Days Of Moderate To Strenuous Exercise, Like A Brisk Walk, Did You Do In The Last 7 Days? 6 [email or web address] Information not available 07/25/2023 On Those Days That You Engage In Moderate To Strenuous Exercise, How Many Minutes, On Average, Do You Exercise? 120 [email or web address] Information not available 07/25/2023 Have You Ever Been Counseled For Unhealthy Alcohol Use? No [email or web address] Information not available 07/25/2023 Do You Use Your Seat Belt Or Car Seat Routinely? Yes Information not available 01/29/2021 Do You Have Smoke And Carbon Monoxide Detectors In Your Home? Yes [email or web address] Information not available 01/29/2021 Do You Use Sunscreen Routinely? Yes [email or web address] Information not available 01/29/2021 Has Tobacco Cessation Counseling Been Provided? No [email or web address] Information not available 07/25/2023 Do You Have Difficulty Walking Or Climbing Stairs? No [email or web address] Information not available 07/25/2023 How Many Days In The Past Year Have You Consumed 4 Or More Drinks? 0 [email or web address] Information not available 07/25/2023 Sex: Unknown Functional Status Question Answer Note LastModified by Organizat ion Details LastModified Time Do you use any illicit or recreational drugs? No Information not available 11/20/2020 Do you or have you ever used any other forms of tobacco or nicotine? No [email or web address] Information not available 07/25/2023 What is your level of alcohol consumption? None [email or web address] Information not available 12/19/2023 Are you able to walk independently without assistance or assistive devices? YESWOREST [email or web address] Information not available 01/29/2021 Are you able to care for yourself independently? Yes Information not available 07/25/2023 Do you have difficulty dressing, bathing, grooming, or toileting? No [email or web address] Information not available 07/25/2023 What is your exercise level? Occasional Information not available 11/20/2020 Mental Status Question Answer Note LastModified by Organization D etails LastModified Time Do you feel stressed (tense, restless, nervous, or anxious, or unable to sleep at night)? [id number] [email or web address] Information not available 01/29/2021 Family History Relationship Description Onset Age of this Age Resolved Age Notes LastModified by Organization Details LastModified Time Sister Malignant neoplasm of cervix uteri suspected [email or web address] Not available 12/19 15:00:35 Maternal Grandmother Diabetes mellitus [email or web address] Not available 12/19 15:00:35 Mother Diabetes mellitus [email or web address] Not available 12/19 15:00:35 Medical History Condition Response Allergies (Food, seasonal, environmental ) Y Other Y Breast Cancer N Drug/Latex Allergies/Reactions Y Blood Transfusion N Lung Disease N Dermatologic Disorders N Defects or Inherited Disease Y Breast Problem Y Gestational Diabetes N Hematologic disorders N Anesthesia Complications N History of STI N Deep Vein Thrombosis N Polycystic ovary syndrome N Anxiety Disorder Y Autoimmune disease Y Arthritis N Polyps N Infertility N History of abnormal pap N Acid Reflux (GERD) Y Cancer N Varicosities N Stroke N Neurologic/Epilepsy N Endometriosis N High Cholesterol N Fibromyalgia N Headaches N Kidney Disease N Heart Problems N Kidney or Bladder Problems N Thyroid Problems N GI Problems Y Eating Disorder N Anemia N Art (IVF or FET) N Psychiatric Illness N Ovarian Cancer N Diabetes N Pulmonary (TB, Asthma) N Hepatitis/Liver Disease N No Past Medical History N Eczema N Urinary Tract Infection N Abuse/Domestic Violence N Asthma N Trauma/Violence N Depression/ depression Y Pre-Eclampsia N Hypertension N Osteoporosis N Thrombophilias N Gynecological History Statement/Question Response Flow Moderate Date of Last Mammogram Date of LMP 10/20/2023 Was last menstrual period normal Y STIs/STDs N HPV Vaccine N Duration of Flow (days) 5 Current Control Method Are cycles usually normal Y Sexually Active? Y Menses Monthly Y Date of DEXA bone scan Age of first menstrual cycle 14 Date of Last Pap Smear 12/19/2023 Sexual Problems? N Desired Control Method Unknown LMP Approximate Obstetrics History GPAL:G 3 P 1 1 0 2 Type Value Full Term 1 Premature 1 Living 2 Total 3 Past Encounters Encounter ID Performer Location Encounter Start Date Encounter Closed Date Diagnosis/Indication Diagnosis SNOMED-CT Code Diagnosis ICD10 Code Diagnosis IMO Codes Diagnosis Note [id number] Mayra [place] , [facility] [address] [address] 11/20/2020 13:34:54 11/20/2020 14:18:51 Gynecologic examination 27111439 Z01.419 Take Calcium with Vitamin D 1200mg daily if not receiving in daily diet. It is strongly advised to have an annual flu shot and up can obtain at most pharmacies . If you have not had a TDap shot in the last 10 years you should obtain one as well. Discussed with patient & provided with informatio n regarding Gardisil vaccine to prevent the 4 strains for HPV that cause cervical cancer if under age 26. Encourage safe sexual practices, to use condoms and limit partners if not already in a monogamous relationsh ip. Do monthly self breast exams. Have mammogram yearly or every other year depending on family history. BRCA testing is now available for patients with strong genetic history of female cancer. If interested contact the office. Engage in daily exercise of low impact aerobic exercise 45-60 minutes 4-5 times weekly. Avoid tobacco and illicit drugs as well as using moderation with alcohol intake less than 1-2 8 oz beverages daily. This lifestyle behavior pattern will lead to less health conditions and longer life span. If BMI greater than 25 weight watchers or dietary consult advised. Patient received above instructio ns, and questions have been answered. If you have any questions please call or respond to this email. Patient was made aware of the patient portal and may obtain a paper copy of today's plan if desired. Additional precaution isabel measures were taken to minimize potential exposure to the Covid-19 virus during this patient s visit, including available hand auriculotherapist upon arrive, temperatur e check and being asked a series of screening questions. All staff wore face coverings during this encounter, as well as provided additional cleaning and sanitizing of all surfaces, including countertop s, pens, chairs, door handles, light switches, etc, prior to and following the patient s visit. Reduced libido 6202649 R 68.82 Spotty periods Menopause sx's Decrease interest in sex Consider TVUS moving forward but update labs for now Will contact with results. Systemic l upus erythematosus [id number] M32.9 Patient recently dx in 03/2020 with LUPUS. SHe is working with her RA doctor to find the right medication for her condition. She feels low libido started prior to this finding but has since worsened since March 2020 Reports that she has actually had LUPUS since 12yo but was not informed by the provider at [facility] as a young girl that this was present. [id number] Mayra Colorado , [facility] [address],[facility] [place] [address] 12/04/2020 09:46:45 12/04/2020 11:17:38 Abnormal uterine bleeding [id number] 9100 N93.9 Schedule TVUS in 6-8wks with med check. Reduced libido 1469902 R 68.82 Spotty periods Menopause sx's Decrease interest in sex Trial of wellbutrin discussed Consider Addyi or vyleesi moving forward Will see what labs say in regards to T-levels. Consider TVUS moving forward but update labs for now Will contact with results. Vitamin D deficiency 347 44208 E55.9 [id number] Mayra Colorado [facility] [address],[place] [address] 12/23/2020 14:02:16 12/23/2020 16:10:26 Reduced libido 7583544 R68.82 Counseled on Addyi and Vyleesi. Failed trial of wellbutrin xl opts to trial Vyleesi. Will have staff Michelle contact specialty pharmacy to order this medication . Will f/u after usage of this medication We discussed use of zofran in addition to Vyleesi to combat possible nausea as a side effect. She agrees. All questions answered to pt satisfacti on. Rx will be phoned into pharmacy. Additional precaution isabel measures were taken to minimize potential exposure to the Covid-19 virus during this patient s visit, including available hand auriculotherapist upon arrive, temperatur e check and being asked a series of screening questions. All staff wore face coverings during this encounter, as well as provided additional cleaning and sanitizing of all surfaces, including countertop s, pens, chairs, door handles, light switches, etc, prior to and following the patient s visit. Time spent in visit is a total of 26 mins with at least 50% of visit consisting of counseling and review of plan of care. [id number] Jose Alberto Donahue MD [place] [address],[place] [address] 01/29/2021 09:40:16 01/29/2021 10:44:57 Abnormal uterine bleeding [id number] 9100 N93.9 R68.82 [id number] Mayra Colorado [facility] [address],[place] [address] 01/29/2021 09:40:53 01/29/2021 11:01:53 Irregular intermenstrual bleeding 82879984 N92.1 TVUS wnl Labs wnl expect vitamin D levels Had other labs updated PCP. Her sx's have actually improved since she has been increasing her activity; lost a few pounds and she voices she will continue along this path for weightloss /movement. Option to trial daily prometrium 100mg if intermenst rual spotting returns as does not need BC since has tubal ligation. Decided to not try Vyleesi. Her spouse & her have been making more time for each other; went and purchases some sexual toys and spending more time with foreplay together which she feels has made a huge difference . Wants to hold off on pharm options for now. Time spent in visit is a total of 15 mins with at least 50% of visit consisting of counseling and review of plan of care. Additional precaution isabel measures were taken to minimize potential exposure to the Covid-19 virus during this patient s visit, including available hand auriculotherapist upon arrive, temperatur e check and being asked a series of screening questions. All staff wore face coverings during this encounter, as well as provided additional cleaning and sanitizing of all surfaces, including countertop s, pens, chairs, door handles, light switches, etc, prior to and following the patient s visit. [id number] Mayra Colorado , [facility] [address] [address] 03/31/2022 16:26:54 03/31/2022 17:03:44 Gynecologic examination 14322865 Z01.419 Take Calcium with Vitamin D 1200mg daily if not receiving in daily diet. It is strongly advised to have an annual flu shot and up can obtain at most pharmacies . If you have not had a TDap shot in the last 10 years you should obtain one as well. Discussed with patient & provided with informatio n regarding Gardisil vaccine to prevent the 4 strains for HPV that cause cervical cancer if under age 26. Encourage safe sexual practices, to use condoms and limit partners if not already in a monogamous relationsh ip. Do monthly self breast exams. Have mammogram yearly or every other year depending on family history. BRCA testing is now available for patients with strong genetic history of female cancer. If interested contact the office. Engage in daily exercise of low impact aerobic exercise 45-60 minutes 4-5 times weekly. Avoid tobacco and illicit drugs as well as using moderation with alcohol intake less than 1-2 8 oz beverages daily. This lifestyle behavior pattern will lead to less health conditions and longer life span. If BMI greater than 25 weight watchers or dietary consult advised. Patient received above instructio ns, and questions have been answered. If you have any questions please call or respond to this email. Patient was made aware of the patient portal and may obtain a paper copy of today's plan if desired. Adult heal th examination [id number] Z00.00 Vitamin D deficiency 347 85101 E55.9 Will await labs to return & see if Rx thierry D is still recommende d. [id number] Mayra Colorado [facility] [address],[facility] [place] [address] 07/07/2022 13:24:01 07/07/2022 14:41:21 Pain in pelvis 25010455 R10.2 Today we discussed updated STAT US and send in medication based on subjective complaints & exam today.Decl ined need for updated std screen.Dale erickson update her once report recieved. Patient is to contact office or go to nearest ED/Urgent care if fever >/= 100.1, pain, excessive bleeding, unusual drainage or swelling in area of concern; or experienci ng worsening sx's or new onset of concerning sx's. Understand ing verbalized . All questions answered to patient satisfacti on. Time spent in visit is a total of 26 mins with at least 50% of visit consisting of counseling and review of plan of care. [id number] Mayra Colorado [facility] [address] [address] 10/12/2022 09:09:34 10/12/2022 10:09:41 Pain of left breast [id number] N64.4 Update US with sharri herrera to perform diag mammo if necessaryW ill await results & decide next stepsRec Tylenol/Ib uprofent/h eat/ice for comfort care.Zofra n sent for general feeling of nausea (Neg F/C/D/V, body aches, chils)Revi ewed plan of care with understand ing verbalized . Time spent in visit is a total of 126 mins with at least 50% of visit consisting of counseling and review of plan of care. Nausea 798229661 R11.0 [id number] Jose Alberto Donahue MD [place] [address],[facility] [place] [address] 01/05/2023 11:56:48 01/05/2023 13:12:01 Female infertility 8662544 N97.9 This patient is a 32-year-ol d female presents for discussion tubal reversal. I performed a tubal ligation. She has the operative note. It was a cauterizat ion of the ampullary region of the tube. Talked about the procedure. We talked about success rates. We talked about where she is seeking care. She already has done significan t research and has a clinic in [place] picked out. They are offering her good cries and it will be a laparotomy . She will return to us for routine gynecologi c and obstetric care. We look forward care with this patient. We spent 20 minutes face-to-fa ce. More than 50% was counseling . [id number] SYLVIE Marquis [place] [address],[place] [address] 04/12/2023 11:39:00 04/12/2023 12:08:17 Contraception care management [id number] Z30.9 Discussed all control options in depth and pt is interested in Nexplanon. Discussed all risks and benefits including irregular unschedule d bleeding. Pt verbalized understand ing and would like to proceed. She is aware that she needs to call us on the 1st day of her period to schedule placement. Time spent in visit is a total of 22 mins with at least 50% of visit consisting of counseling and review of plan of care. [id number] SYLVIE Marquis [place] [address],[place] [address] 04/27/2023 13:51:02 04/27/2023 15:07:35 Implantation of subcutaneous contraceptive [id number] Z30.9 UPT (-)Nexplan on inserted without any immediate complicati ons (see procedure note)preca utions discussed with patientf/u for med check in 2-3 months or sooner if needed Screening procedure 2012 5006 Z13.9 [id number] SYLVIE Marquis [place] [address],[place] [address] 06/08/2023 10:31:02 06/08/2023 13:09:22 Screening procedure [id number] Z13.9 Discussed all optionsshe absolutely does not want nexplanon in place any longer - desires removal todayR/B of removal discussed and accepted by patientnex planon removed (see procedure note) Discussed all control options in great detail. Pt would like to start POP. She is aware of the risks and benefits. She has contraindi cations to use of OCP or other estrogen containing hormonal therapy. Pt will start her pills on the first tuesday following the start of her period. She is aware it is not effective for control the first month. She is also aware of the importance of taking at the same time every day. Encouraged use of condoms as the pill does not protect against STD's. Will return in 3 months for med check. Consent was read and signed. Pt verbalized understand ing. slynd rx sentRTC for med check in 3-4 months Time spent in visit is a total of 30 mins with at least 50% of visit consisting of counseling and review of plan of care. Contracept ion care management [id number] Z30.9 Removal of subcutaneous contraceptive [id number] Z30.46 [id number] Jose Alberto Donahue MD [place] [address] [address] 07/21/2023 09:15:37 07/21/2023 10:48:06 Amenorrhea 19476533 N91.2 This patient presents for abnormal uterine bleeding. She has had no bleeding for three months. she wants to get . She denies any nipple discharge. She does report some nipple tenderness . We discussed amenorrhea . She was examined. She has a normal pelvic exam. Will obtain pelvic ultrasound sex hormones. We spent over 20 minutes face-to-fa ce. More than 50% was normal. Abnormal u terine bleeding [id number] 9100 N93.9 [id number] Jose Alberto Donahue MD [place] [address],[place] [address] 07/25/2023 10:18:07 07/25/2023 10:51:31 Abnormal uterine bleeding [id number] 9100 N93.9 [id number] Jose Alberto Donahue MD [place] [address],[place] [address] 07/26/2023 10:18:42 07/26/2023 12:09:13 Abnormal uterine bleeding [id number] 9100 N93.9 33-year-ol d female who presents for follow-up on abnormal bleeding episode. She has a normal ultrasound and essentiall y normal labs. We are waiting on the testostero ne. Reassured her that this may be an isolated event. She is trying to get . She is having sex every night and predicting ovulation. She has no complaints today. To follow-up as needed. [id number] MD Iman Rashid [address],[place] [address] 12/19/2023 14:11:27 12/19/2023 14:44:11 [id number] Jose Alberto Donahue MD [place] [address],[place] [address] 12/19/2023 14:11:48 12/19/2023 15:32:55 Amenorrhea 77807634 N91.2 29-year-ol d female with amenorrhea . She has a positive test an ultrasound reveals an 8 week gestation. She has lupus. She is previous . She has no complaints today. Pap smear was performed. Normal pelvic exam. Discussed care to some degree. Talked about genetic screening and the 12 week ultrasound primarily. To return in 4 weeks for ultrasound and 1st visit. [id number] MD Iman Rashid [address],[place] [address] 01/19/2024 15:41:59 01/20/2024 08:46:15 screening [id number] Z36.82 Z3A.13 [id number] Jose Alberto Donahue MD [place] [address],[place] [address] 01/19/2024 15:43:03 01/20/2024 08:38:34 Gestation period, 13 weeks 01060650 Z3A.13 Routine an tenatal care [id number] Z34.90 [id number] Jose Alberto Donahue MD [place] [address],[place] [address] 02/16/2024 16:43:34 02/17/2024 02:53:14 Routine care [id number] Z34.90 Health Concerns Section Related Observation LastModified by Organization Detai ls LastModified Time None Recorded Concern Status LastModified by Organization Details LastModified Time None Recorded Advance Directives Directive None Recorded Payers Insurance Date Sequence Insurance Name Policy Number Policy Langston Covered Member ID Langston Member ID Guarantor Name 07/24/2023 1 [facility] PRIOR TO 04/30/2021 (MEDICAID REPLACEMENT - HMO) Judy Bradford [id number] Judy Bradford 03/12/2024 1 [facility] ON OR AFTER 04/30/21 (MEDICAID REPLACEMENT - HMO) Judy Bradford [id number] Judy Bradford Notes Date Note Type Note Provider Name and Address Organization Details Recorded Time 12/19/2023 text/html Annual GYNReport ed by Patient 29-year-old female with amenorrhea. She has a positive test an ultrasound reveals an 8 week gestation. She has lupus. She is previous . She has no complaints today. Pap smear was performed. Normal pelvic exam. Discussed care to some degree. Talked about genetic screening and the 12 week ultrasound primarily. To return in 4 weeks for ultrasound and 1st visit. Jose Alberto Donahue MD [address], [place], [address], [facility] 12/19/2023 15:21:24 02/16/2024 text/html Generic HPI TemplateReported by Patient Jose Alberto Donahue MD [address], [place], [address], [facility] 02/16/2024 20:28:09 OBGyn Episode Ob Episode Information Episode Created Date Number of Fetuses Patient Bloodtype Patient rh Status Prepregnancy Weight lbs Domestic Partner Domestic Partner Phone Father Name Auditor/Quality Status 11/19/19 21 1 CLOSED Fetus Data First Name Last Name Admitted to NICU Weight (g) Sex Living Outcome Pediatric Complications Fetus ID Race Codes Race Delivery Type 2863.07 2704 F Full Term 7313 Vaginal Delivery Ryan Calculation Initial Ryan Date Initial Exam Date Initial Exam Provider Initial Ultrasound Date Last Menstrual Period Date Ultra Sound Weeks Gestation 0 Eighteen To Twenty Week Ryan Update Ultra Sound Date Fundal Height At Umbil Quickening Date Ultra Sound Latest Weeks Gestation Final Ryan Confirmed By Final Ryan Confirmed Date Final Ryan Date Ultra Sound Latest Days Gestation 0 0 Menstrual History Last Menstrual Date Menses Monthly On Bcp Conception Prior Menses Frequency Hcg Plus Date Menarche Onset Age Delivery Information Delivery Date Delivery Type Labor Anesthesia Weeks Gestation Incision Type Labor Labor Length Hrs Delivered By Post Complications Tubal Sterilization Discharge Date Comments 6 39 KESHAV Discharge Information Feeding Method Contraceptive Method Maternal HG B and HCT Levels Ob Episode Information Episode Created Date Number of Fetuses Patient Bloodtype Patient rh Status Prepregnancy Weight lbs Domestic Partner Domestic Partner Phone Father Name Auditor/Quality Status 11/19/19 21 1 CLOSED Fetus Data First Name Last Name Admitted to NICU Weight (g) Sex Living Outcome Pediatric Complications Fetus ID Race Codes Race Delivery Type 878.607 704 M Prematur e 7314 Primary Ryan Calculation Initial Ryan Date Initial Exam Date Initial Exam Provider Initial Ultrasound Date Last Menstrual Period Date Ultra Sound Weeks Gestation 0 Eighteen To Twenty Week Ryan Update Ultra Sound Date Fundal Height At Umbil Quickening Date Ultra Sound Latest Weeks Gestation Final Ryan Confirmed By Final Ryan Confirmed Date Final Ryan Date Ultra Sound Latest Days Gestation 0 0 Menstrual History Last Menstrual Date Menses Monthly On Bcp Conception Prior Menses Frequency Hcg Plus Date Menarche Onset Age Delivery Information Delivery Date Delivery Type Labor Anesthesia Weeks Gestation Incision Type Labor Labor Length Hrs Delivered By Post Complications Tubal Sterilization Discharge Date Comments 2 26 NATALIA/ ABRUPTION PLACENTA Discharge Information Feeding Method Contraceptive Method Maternal HG B and HCT Levels Ob Episode Information Episode Created Date Number of Fetuses Patient Bloodtype Patient rh Status Prepregnancy Weight lbs Domestic Partner Domestic Partner Phone Father Name Auditor/Quality Status 01/19/20 24 1 191 Dionte Eveline CLOSED Fetus Data First Name Last Name Admitted to NICU Weight (g) Sex Living Outcome Pediatric Complications Fetus ID Race Codes Race Delivery Type [id number] Problems Problem Notes [facility] MFM Level II US & ACCOUNTING MANAGER CONTROLLER 02/28 5 230 & 315NIPT - pt to bring in, completed by different provider.Hx Abruption: LD ASA 2 tabs daily, prompt eval vag bleedingLupus: CBC, CMP, YAMILETH, Anti DS DNA, anti SSA & SSB, urine PCR (completed), consider field crop farmworker consult kishan if labs are abnormalObesity: early gct and rpt at 26-28 wks. (pt aware)serial growth q4-6wks, testing TBD, delivery TBD, co-manage recommended. Problem Name Start Date End Date Resolution Snomed Code Not e Lupus erythematosus 12/19/[id number] no meds, MFM consult and US at 20 weeks - referral sent 01/19 [facility] Premature delivery [id number] 2 6 week - son is very good , no deficit Ryan Calculation Initial Ryan Date Initial Exam Date Initial Exam Provider Initial Ultrasound Date Last Menstrual Period Date Ultra Sound Weeks Gestation 07/26/2024 12/19/2023 12/19/2023 10/20/2023 8 Eighteen To Twenty Week Ryan Update Ultra Sound Date Fundal Height At Umbil Quickening Date Ultra Sound Latest Weeks Gestation Final Ryan Confirmed By Final Ryan Confirmed Date Final Ryan Date Ultra Sound Latest Days Gestation 01/19/20 24 13 [email or web address] 01/19/2024 07/26/20 24 1 Pre- Flowsheet Flowsheet Date 01/19/2024 Wilde Score Blood Edema Fundus Height Fundus Units Glucose Ketones Leukocytes Nitrite Labor Signs Protein Cervic Dilation Cervic Effacement Cervic Station Type Weight in lbs Pre/Post Dialysis Refused BP Diastolic BP Location Tested BP Systolic BP Type Fetus Heart Rate Present Fetus Movement Comments Flowsheet Date 01/19/2024 Wilde Score Blood Edema Fundus Height Fundus Units Glucose Ketones Leukocytes Nitrite Labor Signs Protein Cervic Dilation Cervic Effacement Cervic Station neg none none trace Type Weight in lbs Pre/Post Dialysis Refused Weight 195.872134064710 BP Diastolic BP Location Tested BP Systolic BP Type 87 118 Fetus Heart Rate Present A 145 Fetus Movement A Yes Comments this patient is a 33-year-ol d 3 para 10/31/2001 at 13 weeks' gestation who presents for initial care. She has a history of lupus. She also has a history of a 26 week delivery. to have MFM consult and ultrasound at 20 weeks. We discussed care. We discussed dating the . We discussed vaccines. She will begin routine care. Flowsheet Date 02/16/2024 Wilde Score Blood Edema Fundus Height Fundus Units Glucose Ketones Leukocytes Nitrite Labor Signs Protein Cervic Dilation Cervic Effacement Cervic Station neg none none trace Type Weight in lbs Pre/Post Dialysis Refused Weight 196.120678671908 BP Diastolic BP Location Tested BP Systolic BP Type 83 135 Fetus Heart Rate Present A 144 Fetus Movement A Yes Comments recent MFM consult, made rec ommendations on monitoring, labs for lupus to be drawn. Menstrual History Last Menstrual Date Menses Monthly On Bcp Conception Prior Menses Frequency Hcg Plus Date Menarche Onset Age 1210/20/2023 Genetic Screening And Infection History Question Response Note Mental Retardation/Autism false Patient's Age Will Be 35 Years Or Older At Estim ated Date of Delivery false Thalassemia (Indian, Maltese, Mediterranean, Or Background): MCV < 80 false Neural Tube Defect (Meningomyelocele, Spina Bifi da, Or Anencephaly) false Congenital Heart Defect false Down Syndrome false Carlin-Sachs (eg, Church, Cajun, Mongolian-[place]) f alse Yuko Disease false Sickle Cell Disease Or Trait () false Hemophilia Or Other Blood Disorders false Muscular Dystrophy false Cystic Fibrosis false [place]'s Chorea false Intellectual Disability/Autism false If Yes, Was Person Tested For Fragile X? false Other Inherited Genetic Or Chromosomal Disorder false Maternal Metabolic Disorder (eg, Type 1 Diabetes , PKU) false Patient Or Baby's Father Had A Child With Defects Not Listed Above false Recurrent Loss, Or A Stillbirth false Medications (including Suppl ements, Vitamins, Herbs, OTC Drugs), Illicit/Recreational Drugs, Alcohol false If Yes, Agent(s) And Strength/Dosage false Any Other Genetic History false Live With Someone With TB Or Exposed To TB false Patient Or Partner Has History Of Genital Herpes false Rash Or Viral Illness Since Last Menstrual Perio d false History Of STD, Gonorrhea, Chlamydia, HPV, Syphi lis false Other Infection History false History of HIV false History of Hepatitis false Prior GBS-infected child false Hemoglobinopathy Or Carrier false Other Structural Defect false Recent Travel History Outside of Country false Delivery Information Delivery Date Delivery Type Labor Anesthesia Weeks Gestation Incision Type Labor Labor Length Hrs Delivered By Post Complications Tubal Sterilization Discharge Date Comments Discharge Information Feeding Method Contraceptive Method Maternal HG B and HCT Levels
--- NOTE | 2025-08-22 06:36 | WPDHPUPDATE1 ---
History and Physical Update Update Date/Time: 08/22/25 06:36 History and Physical has been reviewed, including an updated exam of the patient. There are NO changes in the patient's condition. Risks, benefits, and alternatives have been discussed and questions answered. Patient agrees to proceed with procedure.
[2025-08-22] MEDS: ACETAMINOPHEN 500 MG TABLET 1000 MG PO (07:00)
[2025-08-22] MEDS: LACTATED RINGERS 1,000 ML 30 ML IV CONT (07:00)
[2025-08-22] MEDS: KETOROLAC 15 MG/ML VIAL (*BKC) IV PUSH (07:00)
--- NOTE | 2025-08-22 07:00 | WPDANESEPPF ---
Anes - Initial Pre Proc Eval Procedure: Operation Date: 08/22/25 07:30 Proposed Procedures p Laparoscopic Bilateral Salpingectomy - Conor Lira MD Date/Time: 08/22/25 07:00 Surgeon: Conor Lira MD Pre Op Diagnosis: Desire Sterilization Patient Data Age: 35 Gender: F Height: 1.55 m Weight: 91.17 kg Allergies Allergy/AdvReac Type Severity Reaction Status Date / Time amoxicillin Allergy Intermediate Hives Verified 08/13/25 16:38 hydrocodone Allergy Intermediate Rash Verified 08/13/25 16:38 hydroxychloroquine Allergy Mild Rash Verified 08/13/25 16:38 Home Medications ?Medication ?Instructions ?Recorded ?Confirmed ?Type dxyizizvjsma-nbmygcze-ppoo 1 tablet PO DAILY 10/27/23 08/13/25 History fumarate 18 mg-folic acid 400 mcg tablet (One-A-Day Women's Complete) Patient hx anesthesia problems: none Family hx anesthesia problems: none Results Review: All pre-operative results and documents have been reviewed as part of the pre-operative evaluation. [facility] Past Medical History Medical History History of placenta previa CHERYL (juvenile idiopathic arthritis), polyarthritis, 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) Rheumatoid arthritis Ovarian cyst Ulcer Surgical History Surgical History Hx of tubal ligation H/O skin graft September 2021 left hand H/O: History of appendectomy Hx of tonsillectomy Family History Family History Mother Diabetes mellitus Grandparent Acute myocardial infarction Sibling Diabetes mellitus Breast cancer Father Heart disease Pancreatic cancer Other Family history of malignant neoplasm of breast in first degree relative Social History Social History Smoking status: Never smoker Tobacco type: e-cigarettes/vaping Second hand tobacco smoke exposure: No Alcohol intake: current Alcohol use details: Socially Substance use: never Substance use type: does not use Do You Feel Safe in your Home?: Yes Lack of Transportation: No Lack of Food: Never True Current Housing: I Have Housing Concerned About Future Housing: No Difficulty Paying Gas/Electric Bills: No Difficulty Paying for Meds: No Currently Unemployed: No Education: High School Diploma/GED Difficulty w/ Childcare or Family Care: No Living arrangements: with family Spiritual care concerns: No Anes - Eval Final PreProcedure Day of Procedure 08/22/25 07:00 Patient weight: obese Heart: regular rate and rhythm Lungs: clear to auscultation Airway: Mallampati scale class II Neurological: alert and oriented Last oral intake: >/= 8 hours ASA classification: II Emergent: no Anesthetic plan: proceed Anesthesia type and monitoring: general ETT and standard monitoring Results Review: All pre-operative results and documents have been reviewed as part of the pre-operative evaluation. Informed Consent: The patient's anesthetic plan and its attendant risks and benefits were discussed with the patient/family/POA. Questions were solicited and answers provided to the satisfaction of the patient/family/POA.
[2025-08-22 07:29] LABS: BEDSIDEPREGUCG Negative (Negative)
--- NOTE | 2025-08-22 07:48 | S_PTH ---
PATIENT: Judy Mosquera LOC: [facility] U#:[id number] AGE/SX: 35/F ROOM: RE08/22/[address]: Conor Lira MD : 1990 BED: DIS: 08/22/2025 SPEC #: [id number] RECD: 08/22/25 08:54 STATUS: YU REQ #: [id number] JESUS: 08/22/25 07:[address]: oCnor Trimble DEPT: [facility] Surgical RECD BY: Chana Browne MLT, ([facility]) ENTERED: 08/22/25 08:54 SP TYPE: Surgical OTHR DR: Lm Ware MD Tissues: A - Fallopian Tube Bilateral Procedures: Gross and Microscopic Level 2 Hematoxylin and Eosin Stain
--- NOTE | 2025-08-22 07:59 | W.PM.PROC2 ---
Procedure Note - Detailed Date of Procedure 08/22/25 Pre-op Diagnosis Desire Sterilization Post-op Diagnosis Same Procedure Performed Laparoscopic bilateral salpingectomy with lysis of adhesions Surgeon Conor Lira MD Anesthesia General Indications 35-year-old multiparous patient who desires permanent sterilization Findings Oral putting ovaries tubes and uterus fair of adhesions from the omentum to the anterior abdominal Description of Procedure Patient was prepped and draped in the normal sterile fashion placed in dorsal lithotomy position. Under excellent general trach anesthesia weighted speculum placed in posterior fornix vagina. Anterior lip of the cervix grasped with a single-tooth tenaculum. Orantes's cannula inserted the cervix and attached to the single-tooth. This will be used later for uterine manipulation. Bladder emptied of clear urine. The weighted speculum was removed and the gloves were changed. An infraumbilical incision made in the Veress needle passed in the abdomen. Abdomen filled with CO2 gas [id number]. The 5mm trocar advanced under direct visualization with the Optiview and no injury seen. Patient placed in Trendelenburg and a suprapubic incision made. 5mm trocar advanced under direct visualization. A left lower quadrant incision made the 5mm trocar advanced under direct visualization assuring no injury. There were multiple adhesions from the omentum to the anterior abdominal wall making visualization somewhat difficult these were cauterized and cut with the 5mm LigaSure the right fallopian tube was then grasped and it was by serially clamping burning and cutting with the LigaSure to the origin of the fallopian tube at the uterus this was clamped burned and cut and removed through the left lower quadrant incision. In similar fashion on the right the right fallopian tube was grasped sharply dissected away from the uterine ovarian tissue clamping burning cutting until reaching the uterine origin this was then clamped, burned, cut. This was removed through the left quadrant incision I hemostasis was assured. The lower sites removed. The gas removed from the abdomen. The upper sites removed the incisions closed with 4 Monocryl glue. Instruments withdrawn from the vagina. Patient went recovery in satisfactory condition. All sponge, needle, instrument counts were correct. There were no immediate complications Estimated Blood Loss 5 Drains No Packing No Pathology Yes Complications No immediate complications Condition Stable Disposition PACU
== END 2025-08-22 09:42 | disposition home or self-care (01) ==
PROVIDERS: PCP Family Medicine Adolescent Medicine; Visit Provider Obstetrics & Gynecology
PROC: (CPT 49320; principal; 2025-08-22 07:30)
DX: Z30.2 Encounter for sterilization (principal); N73.6 Female pelvic peritoneal adhesions (postinfective); N83.8 Other noninflammatory disorders of ovary, fallopian tube and broad ligament
CPT/HCPCS: 58661; 88302; A9270; J1100; J1885; J2003; J2250; J2405; J2704; J3010; J7120

== ENCOUNTER → 2025-10-29 11:10 | Outpatient (CLI) | payer OTHER, SELFPAY ==
--- NOTE | ~2025-10-29 | XR_ITS ---
XR shoulder LT min 2V 10/29/2025 11:33 INDICATION: Left shoulder pain PROCEDURE: 4 views left shoulder COMPARISON: No prior studies for comparison. FINDINGS: Fracture, dislocation or subluxation is not identified. The soft tissues appear within normal limits. No foreign bodies are identified. IMPRESSION: 1: NO ACUTE BONE OR JOINT ABNORMALITY IDENTIFIED. Reviewed, dictated and finalized at location O. OR GALLERY OPERATOR
== END ==
LOC: EXPTRAD 11:11
PROVIDERS: PCP Nurse Practitioner Family; Visit Provider Nurse Practitioner Family
DX: M25.512 Pain in left shoulder (principal)
CPT/HCPCS: 73030